=== PATIENT | male | born 1955 | race Caucasian/White ===

== ENCOUNTER 2016-07-03 17:39 | Inpatient (IN) | payer OTHER ==
[~2016-07-03] VITALS: Ht 172.7 cm; Wt 78.5 kg
[~2016-07-03 17:39] MED LIST: PLAVIX75 MG PO
[2016-07-03 18:06] LABS: BASOPHILS 0.3 % (0.0-2.0); EOSINOPHILS 1.5 % (0-7); HEMATOCRIT 43.6 % (42.0-54.0); HEMOGLOBIN 14.8 g/dL (13.5-17.5); IMMATURE GRANULOCYTES 0.2 % (0-5); LYMPHOCYTES 29.1 % (15-50); MCH 31.4 pg (26.0-34.0); MCHC 33.9 g/dL (31.0-37.0); MCV 92.4 fL (80.0-100.0); MEAN PLATELET VOLUME 9.8 fL (7.4-10.4); MONOCYTES 9.2 % (2-11); NEUTROPHILS 59.7 % (40-80); PLATELET COUNT 253 10x3/uL (130-400); RBC 4.72 10x6/uL (4.20-6.10); RDW 12.8 % (11.5-14.5); WBC 6.1 10x3/uL (4.8-10.8)
[2016-07-03 18:22] LABS: ALBUMIN 3.6 g/dL (3.4-5.0); BILIRUBIN - TOTAL 0.34 mg/dL (0.2-1.3); CALCIUM 9.2 mg/dL (8.5-10.1); CARBON DIOXIDE 29.5 mmol/L (21.0-32.0); CREATININE - SERUM 1.1 mg/dL (0.6-1.3); POTASSIUM - SERUM 3.5 mmol/L (3.5-5.1); PROTEIN - SERUM 7.7 g/dL (6.4-8.2)
[2016-07-03 18:25] LABS: APTT 26.6 SECONDS (22.8-39.4); INR 0.93 (0.85-1.17); PROTIME 12.3 SECONDS (11.6-15.0)
[2016-07-03 19:34] LABS: APPEARANCE CLEAR (CLEAR); BILIRUBIN NEGATIVE (NEGATIVE); COLOR YELLOW (YELLOW); GLUCOSE NEGATIVE (NEGATIVE); KETONE NEGATIVE (NEGATIVE); LEUKOCYTE ESTERASE NEGATIVE (NEGATIVE); NITRITE NEGATIVE (NEGATIVE); PH 6.5 (5.0-6.0); PROTEIN NEGATIVE (NEGATIVE); SPECIFIC GRAVITY 1.015 (1.005-1.020); UROBILINOGEN NORMAL (NORMAL)
--- NOTE | 2016-07-03 23:45 | NUR ---
RECEIVED PATIENT FROM THE ER. AT BEDSIDE. PATIENT DENIES NEEDS AT THIS TIME. BED IN LOWEST POSITION AND CALL LIGHT WITHIN REACH. ENCOURAGED PATIENT TO CALL IF HE HAS NEEDS.
[2016-07-03] MEDS ORDERED: ASPIRIN81 MG PO (23:53)
[2016-07-04 00:01] VITALS: BP 106/69; BMI 27.2
[2016-07-04 04:00] VITALS: BP 99/61
[2016-07-04 05:38] LABS: BASOPHILS 0.5 % (0.0-2.0); EOSINOPHILS 1.6 % (0-7); HEMATOCRIT 39.7 % (42.0-54.0); HEMOGLOBIN 13.1 g/dL (13.5-17.5); IMMATURE GRANULOCYTES 0.2 % (0-5); LYMPHOCYTES 38.6 % (15-50); MCH 30.4 pg (26.0-34.0); MCV 92.1 fL (80.0-100.0); MEAN PLATELET VOLUME 9.7 fL (7.4-10.4); MONOCYTES 12.3 % (2-11); NEUTROPHILS 46.8 % (40-80); PLATELET COUNT 224 10x3/uL (130-400); RBC 4.31 10x6/uL (4.20-6.10); RDW 12.9 % (11.5-14.5)
[2016-07-04 05:41] LABS: WBC 4.3 10x3/uL (4.8-10.8)
[2016-07-04 06:11] LABS: ALBUMIN 2.9 g/dL (3.4-5.0); ALKALINE PHOSPHATASE 136 U/L (46-116); ALT (SGPT) 20 U/L (10-68); BILIRUBIN - TOTAL 0.19 mg/dL (0.2-1.3); CALC OSMOLALITY 278 mosm/kg (275-300); CALCIUM 8.1 mg/dL (8.5-10.1); CARBON DIOXIDE 26.6 mmol/L (21.0-32.0); CHLORIDE - SERUM 107 mmol/L (98-107); GLUCOSE 110 mg/dL (74-106); MAGNESIUM - SERUM 2.2 mg/dL (1.8-2.4); PHOSPHOROUS 3.4 mg/dL (2.5-4.9); PROTEIN - SERUM 6.5 g/dL (6.4-8.2); SODIUM 140 mmol/L (136-145); UREA NITROGEN 11 mg/dL (7-18)
[2016-07-04 06:13] LABS: CREATININE - SERUM 0.8 mg/dL (0.6-1.3); POTASSIUM - SERUM 4.2 mmol/L (3.5-5.1); eGFR NON AFRICAN AMERICAN > 90 mL/min (90-120)
[2016-07-04 08:16] VITALS: BP 126/68
[2016-07-04 11:21] VITALS: BP 97/61
[2016-07-04 16:28] VITALS: BP 126/78
[2016-07-04 20:00] VITALS: BP 119/78
--- NOTE | 2016-07-04 20:27 | NUR ---
PATIENT RESTING IN BED AND DENIES NEEDS AT THIS TIME. BED IN LOWEST POSITION AND CALL LIGHT WITHIN REACH. ENCOURAGED PATIENT TO CALL IF HE HAS FURTHER NEEDS.
[2016-07-05] VITALS (11 sets, daily range): BP systolic 105–145; BP diastolic 65–91; Ht 172.7 cm; Wt 78.5 kg
[2016-07-05 05:24] LABS: BASOPHILS 0.2 % (0.0-2.0); EOSINOPHILS 1.9 % (0-7); HEMATOCRIT 39.3 % (42.0-54.0); HEMOGLOBIN 12.9 g/dL (13.5-17.5); IMMATURE GRANULOCYTES 0.2 % (0-5); LYMPHOCYTES 37.4 % (15-50); MCH 30.4 pg (26.0-34.0); MCHC 32.8 g/dL (31.0-37.0); MCV 92.7 fL (80.0-100.0); MONOCYTES 11.8 % (2-11); NEUTROPHILS 48.5 % (40-80); PLATELET COUNT 217 10x3/uL (130-400); RBC 4.24 10x6/uL (4.20-6.10); RDW 13.2 % (11.5-14.5); WBC 4.2 10x3/uL (4.8-10.8)
[2016-07-05 05:51] LABS: ALBUMIN 2.9 g/dL (3.4-5.0); ALKALINE PHOSPHATASE 141 U/L (46-116); ALT (SGPT) 18 U/L (10-68); BILIRUBIN - TOTAL 0.33 mg/dL (0.2-1.3); CALC OSMOLALITY 286 mosm/kg (275-300); CALCIUM 8.3 mg/dL (8.5-10.1); CARBON DIOXIDE 26.8 mmol/L (21.0-32.0); CHLORIDE - SERUM 111 mmol/L (98-107); CREATININE - SERUM 0.9 mg/dL (0.6-1.3); GLUCOSE 90 mg/dL (74-106); MAGNESIUM - SERUM 1.9 mg/dL (1.8-2.4); PHOSPHOROUS 2.9 mg/dL (2.5-4.9); POTASSIUM - SERUM 4.9 mmol/L (3.5-5.1); PROTEIN - SERUM 5.9 g/dL (6.4-8.2); SODIUM 145 mmol/L (136-145); UREA NITROGEN 7 mg/dL (7-18); eGFR NON AFRICAN AMERICAN > 90 mL/min (90-120)
--- NOTE | 2016-07-05 06:30 | NUR ---
PATIENT FELT VERY ANXIOUS LAST NIGHT ABOUT HAVING A PROCEDURE TODAY. AFTER SPEAKING WITH DR. PAUL LAST NIGHT THE PATIENT STATED HE "FEELS MUCH BETTER AND HIS QUESTIONS HAVE BEEN ANSWERED"
--- NOTE | 2016-07-05 07:18 | NUR ---
PATIENT AWAKE, ALERT AND ORIENTED X'S 4. NO SIGNS OF DISTRESS NOTED. PATIENT REQUESTED TO BE UNHOOKED FROM IV FOR A LITTLE WHILE. UNHOOKED PATIENT FROM THE IV.
--- NOTE | 2016-07-05 07:27 | NUR ---
PATIENT AMBULATING IN THE [place] WITH HIS . GAIT STEADY. NO SIGNS OF DISTRESS NOTED.
--- NOTE | 2016-07-05 16:18 | NUR ---
DR. PAUL HERE AT BEGINNING OF PROCEDURE TO SEE BEGINNING OF PROCEDURE.
--- NOTE | 2016-07-05 16:18 | NUR ---
20G JELCO RESITED TO LEFT FA DURING PROCEDURE BY JOHNNY SCOTT PIPE FITTER [employer]
--- NOTE | 2016-07-05 16:29 | NUR ---
1628 DR. GARRIDO GIVES PT. RESULTS.
--- NOTE | 2016-07-05 17:14 | NUR ---
PATIENT CAME BACK FROM GI LAB WITH IV TO HIS RIGHT FOREARM/WRIST. MANGLE CATCHER D/C IV WITH CATH INTACT.
--- NOTE | 2016-07-05 19:15 | NUR ---
RECIEVED SHIFT REPORT. PT IS LYING IN BED. ALERT AND ORIENTED AND ABLE TO VERBALIZE NEEDS. IV IS PATENT AND FLUIDS ARE RUNNING PER ORDER. PT DENIES ANY PAIN AT THIS TIME. PT IS AMBULATORY BUT WAS INSTRUCTED TO CALL FOR ANY ASSISTANCE NEEDED. SCD'S OFF AT THIS TIME. NO NEEDS ARE VERBALIZED AT THIS TIME. WILL CONTINUE TO MONITOR. AT BEDSIDE. SIDE RAILS ARE UP X 2. BED IS IN LOWEST POSITION. CALL LIGHT IS WITHIN REACH.
--- NOTE | 2016-07-05 20:30 | NUR ---
SHIFT ASSESSMENT COMPLETED. PT STATUS REMAINS UNCHANGED FROM PREVIOUS. WILL MONITOR. AT BEDSIDE. SIDE RAILS X 2. BED LOW. CALL LIGHT IN REACH.
[2016-07-06] VITALS: BP 146/82
[2016-07-06 04:00] VITALS: BP 128/77
[2016-07-06 05:30] LABS: ALBUMIN 2.8 g/dL (3.4-5.0); ALKALINE PHOSPHATASE 143 U/L (46-116); ALT (SGPT) 17 U/L (10-68); BILIRUBIN - TOTAL 0.44 mg/dL (0.2-1.3); CALC OSMOLALITY 276 mosm/kg (275-300); CALCIUM 8.3 mg/dL (8.5-10.1); CHLORIDE - SERUM 109 mmol/L (98-107); CREATININE - SERUM 0.9 mg/dL (0.6-1.3); GLUCOSE 71 mg/dL (74-106); PROTEIN - SERUM 6.3 g/dL (6.4-8.2); SODIUM 141 mmol/L (136-145); UREA NITROGEN 8 mg/dL (7-18); eGFR NON AFRICAN AMERICAN > 90 mL/min (90-120)
[2016-07-06 05:31] LABS: POTASSIUM - SERUM 3.6 mmol/L (3.5-5.1)
[2016-07-06 05:42] LABS: BASOPHILS 0.2 % (0.0-2.0); EOSINOPHILS 1.4 % (0-7); HEMATOCRIT 39.3 % (42.0-54.0); HEMOGLOBIN 13.2 g/dL (13.5-17.5); LYMPHOCYTES 26.4 % (15-50); MCH 30.6 pg (26.0-34.0); MCHC 33.6 g/dL (31.0-37.0); MCV 91.2 fL (80.0-100.0); MEAN PLATELET VOLUME 9.9 fL (7.4-10.4); MONOCYTES 8.7 % (2-11); NEUTROPHILS 63.3 % (40-80); PLATELET COUNT 224 10x3/uL (130-400); RBC 4.31 10x6/uL (4.20-6.10); RDW 12.7 % (11.5-14.5); WBC 5.1 10x3/uL (4.8-10.8)
--- NOTE | 2016-07-06 07:20 | NUR ---
PATIENT SITTING UP ON SIDE OF BED ALERT. NO SIGNS OF DISTRESS NOTED. GUEST AT BEDSIDE. SIDE RAILS UP X2. BED IN LOW POSITION. CALL LIGHT IN REACH.
[2016-07-06 07:38] VITALS: BP 114/78
--- NOTE | 2016-07-06 07:39 | NUR ---
UP WALKING AROUND THE UNIT, DENIES NEEDS, STATES HE HOPES TO GO HOME TODAY, NO DISTRESS NOTED, WILL CONTINUE TO MONITOR
--- NOTE | 2016-07-06 08:04 | OP ---
PATIENT NAME: CAROL RODRÍGUEZ MEDICAL RECORD: [id number] :51 LOCATION:[facility] ADMISSION DATE:07/03/16 SURGEON: JAYLON GARRIDO DO DATE OF OPERATION: 07/05/2016 REQUEST THINGS PHYSICIAN: CELIO PAUL MD INDICATION: Lower gastrointestinal bleed/hematochezia and abnormal CT findings with a suspected rectosigmoid mass. MEDICATIONS: Propofol 250 mg IV per anesthesia. FINDINGS: Informed consent was given. The patient was sedated with the above medication. Once adequate sedation was reached by slow IV push, the patient was placed on his left side. A digital rectal examination was performed and was normal The endoscope was then advanced under direct visualization through the rectum to the cecum evidenced by the appendiceal orifice and ileocecal valve. There was a polyp located at approximately 40 cm, which measured 1.2 cm in size. It was not removed due to the current workup of this rectosigmoid site. A tattoo was placed near the site to aid in finding in the near future. Scope was further withdrawn to the rectosigmoid where a questionable mass was located. Its length was approximately 5 cm (from 10 cm to 15 cm) in the rectosigmoid. It protruded in the lumen somewhat and had a single defect with blood coming out of the site and a clot was present within the defect. Biopsies were taken around that site. A tattoo was placed both proximally and distally to the mass. It is difficult to characterized by appearance alone. The scope was then retroflexed in the rectum where some internal hemorrhoids were present. Scope was withdrawn from the patient. The patient tolerated the procedure well and there were no complications. IMPRESSION: 1. Rectosigmoid mass differential to include inflammatory versus malignant. There is single defect site that appears to be communicating with an unknown structure/site outside of the colon. Biopsies were taken of this mass/site and tattoo was placed proximally and distally. 2. Single polyp measuring approximately 1.2 cm in size at approximately 40 cm from the anal verge, which was not removed on this examination. PLAN AND RECOMMENDATIONS: 1. Return to floor and monitor for further bleeding. 2. We will schedule a Gastrografin enema to further characterized this mass as well as the defect, which may be communicating as a ____ versus a defect into the abdomen. 3. Dr. Paul is aware of findings and will assist with determination of next course of action, pending findings on the Gastrografin enema. TRANSINT:[id number] Voice Confirmation ID: [id number] DOCUMENT ID: [id number] OPERATIVE REPORT [id number] CAROL RODRÍGUEZ NATHAN A DO at 0804 CC: [id number] DICTATION DATE: 07/05/16 162 BRAID MAKER: 07/05/16 2325 ADM IN [id number] [place] [address]
[2016-07-06 11:54] VITALS: BP 116/65
[2016-07-06 15:49] VITALS: BP 120/70
[2016-07-06] MEDS ORDERED: NICODERM C1 PATCH .3 TRANSDERM (16:29)
--- NOTE | 2016-07-06 16:29 | NUR ---
CM REASSESSMENT NOTE: PATIENT IS DISCHARGING HOME TODAY - DENIED HOME HEALTH OR ANY OTHER NEEDS FOR DISCHARGE- IS DRIVING HIM HOME.
--- NOTE | 2016-07-06 17:28 | NUR ---
DISCHARGE PAPERS AND INSTRUCTIONS GIVEN, QUESTIONS ANSWERED, IV REMOVED TIP INTACT, DISCHARGED PER WALKING WITH BELONGINGS
--- NOTE | 2016-08-04 09:43 | PN ---
PATIENT:CAROL RODRÍGUEZ MEDICAL RECORD: [id number] LOCATION:[facility] ADMISSION DATE: 07/03/16 PROGRESS NOTE DATE OF SERVICE: 07/04/2016 The patient is undergoing a slow bowel prep. I have reviewed his CT images again. I went by and talked to him and his . His symptoms are unchanged from yesterday. I am doing a slow bowel prep, so that hopefully we can not precipitate a bowel obstruction as this is a nearly obstructing malignancy. We do not yet a have tissue diagnosis. I will order a CEA level. I have encouraged him to drink the rest of his GoLYTELY. I am going to consult Dr. Magallanes and her group and see if they can perform a colonoscopy on the patient tomorrow. As I explained to the patient again today, if this is a rectal cancer, then preoperative chemotherapy and radiation would likely be indicated. If this is a colon cancer, then a primary resection with anastomosis would be indicated. REVIEW OF SYSTEMS: No nausea or vomiting. No fever or chills. No chest pain or shortness of breath, Review of systems is negative other than as is described above. This is progress note addendum. For the typed portion of the progress note, which included the past medical and surgical history, allergies, current medications, please see the chart. PHYSICAL EXAMINATION: GENERAL: The patient does not appear acutely ill. He does not appear chronically ill. VITAL SIGNS: Reviewed. HEAD: External ears appear normal. EYES: Extraocular movements are intact. NECK: Trachea is midline. CHEST: No intercostal retractions. PULMONARY: Nonlabored, no stridor. ABDOMEN: Nontender. EXTREMITIES: No peripheral cyanosis. INTEGUMENT: No rash, no ulcerations. PSYCHIATRIC: Normal affect. NEUROLOGIC: Nonfocal, no lethargy. The patient answers questions appropriately, moves all extremities well. BACK: No thoracic kyphosis. LYMPHATIC: No lymphangitic streaking of the exposed extremities. IMPRESSION Hematochezia, likely due to a colon or rectal malignancy. PLAN: Continue bowel prep. N.p.o. after midnight. Hopefully, a colonoscopy tomorrow. I consult his primary care team for medical management. TRANSINT:[id number] Voice Confirmation ID: [id number] DOCUMENT ID: [id number] PROGRESS NOTE [id number] CAROL RODRÍGUEZ ROBERT MD at 0943 CC: [id number] DICTATION DATE: 07/04/162152 VEST FINISHER: 07/05/16 0125 DIS IN 07/06/16 [place] [address] [id number] [place] [address]
--- NOTE | 2016-08-04 09:43 | PN ---
PATIENT:CAROL RODRÍGUEZ MEDICAL RECORD: [id number] LOCATION:[facility] ADMISSION DATE: 07/03/16 PROGRESS NOTE DATE OF SERVICE: 07/05/2016 Progress Note Addendum CHIEF COMPLAINT: None. I saw the patient in the GI lab. I was present when Dr. Dial performed a flexible proctoscopy and sigmoidoscopy. The lesion did not appear definitely to represent a malignancy. There was a clot within what appeared to be either a fistula or diverticulum. This was 10 cm, so the patient should not have rectal diverticulum. This may be a fistula. We are going to obtain a Gastrografin enema. As we did not want to exclude the patient from undergoing a Gastrografin enema, we did not take any biopsies today. I have discussed the case with Mrs. Rodríguez as well. Nothing aggravates. Nothing alleviates. The patient is unable to provide me with any review of systems today as he is sedated. This is a progress note addendum. For the typed portion of the progress note including the past medical and surgical history, allergies, social history as well as current medications, please see the chart. REVIEW OF SYSTEMS: Unobtainable from the patient due to sedation. PHYSICAL EXAMINATION: GENERAL: The patient does not appear acutely ill. He does appear chronically ill. VITAL SIGNS: Reviewed. HEAD: External ears appear normal. EYES: Extraocular movements are intact. NECK: Trachea is midline. CHEST: No intercostal retractions. PULMONARY: Nonlabored. ABDOMEN: Unable to assess due to sedation. EXTREMITIES: No peripheral cyanosis. INTEGUMENT: No rash. PSYCHIATRIC: Unable to assess due to sedation. NEUROLOGIC: Unable to assess due to sedation. BACK: Mild thoracic kyphosis is present. LYMPHATIC: No lymphangitic streaking of the exposed extremities. IMPRESSION: There is a rectal mass at 10 cm, perhaps related to malignancy or perhaps related to a fistula. PLAN: Gastrografin enema tomorrow. Continue clear liquids. N.p.o. after midnight. TRANSINT:[id number] Voice Confirmation ID: [id number] DOCUMENT ID: [id number] PROGRESS NOTE [id number] CAROL RODRÍGUEZ ROBERT MD at 0943 CC: [id number] DICTATION DATE: 07/05/16 1606 FINANCIAL SALES ADVISOR: 07/05/16 1709 DIS IN 07/06/16 [facility] [address] [place] [address]
--- NOTE | 2016-08-04 09:43 | DS ---
PATIENT:CAROL RODRÍGUEZ :51 MEDICAL RECORD: [id number] DISCHARGE SUMMARY ADMISSION DATE: 07/03/16 DISCHARGE DATE: 07/06/16 PREOPERATIVE DIAGNOSES: 1. Hematochezia. 2. Rectal mass versus fistula versus inflammatory process. Biopsies pending. 3. Acute coronary syndrome. 4. Chronic obstructive pulmonary disease. 5. Nicotine dependence. PROCEDURES: Colonoscopy with submucosal injection (tattooing) as well as biopsies by Dr. Dial. HOSPITAL COURSE: The patient was admitted through the Emergency Room. He was seen by Dr. Dial in consultation. The patient underwent a CT scan. I personally reviewed the CT images. I personally reviewed the CT report. It was consistent with possible rectosigmoid mass. When Dr. Dial performed the proctoscopy, this mass was 10 cm and was ulcerated or there was a diverticulum present. It did have a clot within it. Biopsies were taken. He also tattooed proximal and distal to the mass. The patient can be dismissed home. I will see him in the office in 2-3 weeks. Pending results of the biopsies and the CEA level. TRANSINT:[id number] Voice Confirmation ID: [id number] DOCUMENT ID: [id number] CELIO PAUL MD at 0943 CC: ARIANNA LENZ MD, TOI SY MD and JAYLON DIAL DO [id number] DICTATION DATE: 07/06/16 1618 ASSISTANCE COORDINATOR: 07/07/16 0326 DIS IN 07/06/16 [id number] [place] [address]
--- NOTE | 2016-08-04 09:43 | HP ---
PATIENT: CAROL RODRÍGUEZ MEDICAL RECORD: [id number] ACCOUNT: [id number] LOCATION:D[facility] : 51 ADMISSION DATE: 07/03/16 HISTORY AND PHYSICAL EXAMINATION History and physical for yesterday, 07/03/2016. CHIEF COMPLAINT: Bleeding. HISTORY OF PRESENT ILLNESS: The patient was admitted through the Emergency Room. He underwent a CT scan. It revealed what appears to be a mass, either in the upper rectum or the lower sigmoid colon. Anyhow, it is likely at the rectosigmoid junction. Depending on whether if it is a rectal mass or a colon mass, will determine what type of treatment he is going to need to undergo. If it is a rectal mass, then preoperative chemotherapy and radiation would be indicated. If it is colonic mass, then a primary resection would be indicated. This is a history and physical addendum. For the typed portion of the history and physical, please see the chart. Nothing aggravates. Nothing alleviates. Symptoms are mild. He is having no pain. REVIEW OF SYSTEMS: No nausea, no vomiting, no fever, no chills, no abdominal pain. For the typed portion of the progress note including past medical and surgical history, allergies, current medications, please see the chart. PHYSICAL EXAMINATION: GENERAL: The patient does not appear acutely ill. He does not appear chronically ill. VITAL SIGNS: Reviewed. HEAD: External ears appear normal. EYES: Extraocular movements are intact. NECK: Trachea is midline. CHEST: No intercostal retractions. PULMONARY: Nonlabored, no stridor. ABDOMEN: Nontender. EXTREMITIES: No peripheral cyanosis. INTEGUMENT: No rash, no ulcerations. PSYCHIATRIC: Normal affect. NEUROLOGIC: Nonfocal, no lethargy. The patient answers questions appropriately, moves all extremities well. BACK: No thoracic kyphosis. LYMPHATICS: No lymphangitic streaking of the exposed extremities. X-ray studies have personally reviewed the x-ray images. I have personally reviewed the x-ray report. IMPRESSION: Mass, if it is within the sigmoid colon or rectum, likely malignancy. PLAN: Bowel prep. Colonoscopy. I will consult Dr. Magallanes and then either operative intervention or neoadjuvant chemotherapy and radiation, depending on the location of the mass. HISTORY AND PHYSICAL [id number] CAROL RODRÍGUEZ TRANSINT:[id number] Voice Confirmation ID: [id number] DOCUMENT ID: [id number] CELIO PAUL MD at 0943 CC: [id number] DICTATION DATE: 07/04/162058 SPECIAL EQUIPMENT TECHNICIAN: 07/04/162156 DIS IN 07/06/16 [place] [id number] [place] [id number]
== END 2016-07-06 17:30 | disposition home or self-care (01) | DRG 394 ==
LOC: D.ER 17:39 → D.MS 22:30
PROVIDERS: Emergency Medicine; Internal Medicine Gastroenterology; Physician Assistant Medical; ADMIT Surgery
PROC: 0DBN8ZX Excision of Sigmoid Colon, Via Natural or Artificial Opening Endoscopic, Diagnostic (ICD-10-PCS; 2016-07-05)
PROC: 0DBP8ZX Excision of Rectum, Via Natural or Artificial Opening Endoscopic, Diagnostic (ICD-10-PCS; principal; 2016-07-05 12:30)
DX: K63.9 Disease of intestine, unspecified (principal); K92.1 Melena; F17.203 Nicotine dependence unspecified, with withdrawal; I24.9 Acute ischemic heart disease, unspecified; J44.9 Chronic obstructive pulmonary disease, unspecified; K64.8 Other hemorrhoids; D64.9 Anemia, unspecified

== ENCOUNTER 2016-08-25 09:37 | Day surgery (SDC) | payer OTHER ==
[~2016-08-25] VITALS: Ht 172.7 cm; Wt 78.6 kg
--- NOTE | ~2016-08-25 | OP ---
PATIENT NAME: CAROL RODRÍGUEZ MEDICAL RECORD: [id number] :51 LOCATION:[place] ADMISSION DATE: SURGEON: JAYLON GARRIDO DO DATE OF OPERATION: 08/25/2016 PROCEDURES: Flexible sigmoidoscopy with endoscopic mucosal resection and biopsies. SCOPE: BaseTrace video pediatric colonoscope. MEDICATIONS: Propofol 250 mg IV per anesthesia. ESTIMATED BLOOD LOSS: Minimal. COMPLICATIONS: None. FINDINGS: Informed consent was given. The patient was made comfortable with the above medications. After reaching an adequate level of sedation by slow IV push, the patient was placed on his left side. A digital rectal examination was performed and was normal. The endoscope was then advanced under direct visualization through ____ approximately 40 cm where the previously indentified polyp was again located near a tattooed site. This polyp measured approximately 1.5 cm in size. It was removed using EMR technique with a saline injection underneath the base of the polyp followed by hot snare polypectomy. The polyp was removed in 1 piece and completely retrieved. The scope was then withdrawn to give attention to the previously indentified rectosigmoid mass with fistulized site. A tattoo was identified above and below the site. The previous fistula versus diverticuli was again identified, but appeared less open and possibly completely close. With previously appeared to be more mass-like and inflamed, appeared as if it were normal colonic mucosa. 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 There were also five diminutive and benign-appearing sessile polyps, which were removed with cold forceps. All of the specimens were submitted to pathology. The scope was then withdrawn back into the rectum and retroflexed, with a normal appearance. The scope was withdrawn from the patient. The patient tolerated the procedure well and there were no complications. IMPRESSION: 1. Previous identified polyp measuring approximately 1.5 cm located at 40 cm from the anal verge, removed using EMR technique. 2. Five diminutive sessile polyps in the rectosigmoid junction, all removed with cold forceps. 3. Previously identified inflammatory mass versus large polyp located between tattooed site and with a diverticular versus a fistulized site, appearing healed at this time. Biopsies were taken. PLAN AND RECOMMENDATIONS: 1. Discharge home when recovery parameters are met. 2. Continue current diet. 3. Continue current medications. 4. Follow up biopsy specimen results. 5. Further recommendations will be dependent on results of biopsy specimens. TRANSINT:[id number] Voice Confirmation ID: [id number] DOCUMENT ID: [id number] OPERATIVE REPORT [id number] CAROL RODRÍGUEZ NATHAN A DO CC: [id number] DICTATION DATE: 08/25/16 1407 RN CLINICAL APPEALS: 08/25/16 1438 [facility] 08/25/16 [place] [id number] [place] [id number]
[~2016-08-25 09:37] MED LIST changes: +ASPIRIN81 MG PO; +NICODERM C1 PATCH .3 TRANSDERM
[2016-08-25 10:25] LABS: BASOPHILS 0.2 % (0-2); EOSINOPHILS 1.4 % (0-7); HEMATOCRIT 43.2 % (42.0-54.0); HEMOGLOBIN 14.6 g/dL (13.5-17.5); IMMATURE GRANULOCYTES 0.2 % (0-5); LYMPHOCYTES 31.7 % (15-50); MCH 30.9 pg (26.0-34.0); MCHC 33.8 g/dL (31.0-37.0); MCV 91.5 fL (80.0-100.0); MEAN PLATELET VOLUME 9.7 fL (7.4-10.4); MONOCYTES 11.4 % (2-11); NEUTROPHILS 55.1 % (40-80); PLATELET COUNT 194 10x3/uL (130-400); RBC 4.72 10x6/uL (4.20-6.10); RDW 12.9 % (11.5-14.5); WBC 4.4 10x3/uL (4.8-10.8)
[2016-08-25 10:32] LABS: CALC OSMOLALITY 277 mosm/kg (275-300); CARBON DIOXIDE 26.3 mmol/L (21.0-32.0); CHLORIDE - SERUM 107 mmol/L (98-107); CREATININE - SERUM 0.9 mg/dL (0.6-1.3); GLUCOSE 89 mg/dL (74-106); POTASSIUM - SERUM 3.9 mmol/L (3.5-5.1); SODIUM 140 mmol/L (136-145); UREA NITROGEN 13 mg/dL (7-18); eGFR NON AFRICAN AMERICAN > 90 mL/min (90-120)
[2016-08-25 10:36] VITALS: BP 113/71; Ht 172.7 cm; Wt 78.6 kg
--- NOTE | 2016-08-25 14:27 | NUR ---
1420-RECD FROM GI LAB. DROWSY. ENCOURAGED TO DEEP BREATHE AND COUGH. RESP WITH EASE. DR GARRIDO HERE TO REPORT TO FAMILY.
--- NOTE | 2016-08-25 14:56 | NUR ---
1450-NO NAUSEA. IV D/C. UP TO BATHROOM AND VOIDED. 1500-DISCHARGE INSTRUCTIONS REVIEWED. 1505-D/C VIA WHEELCHAIR.
== END 2016-08-25 15:05 | disposition home or self-care (01) ==
LOC: D.OPS 09:37
PROVIDERS: Anesthesiology
DX: D12.4 Benign neoplasm of descending colon (principal); K63.5 Polyp of colon

== ENCOUNTER 2016-10-05 21:05 | Observation (INO) | payer OTHER ==
[~2016-10-05] VITALS: Ht 172.7 cm; Wt 80.7 kg
--- NOTE | ~2016-10-05 | HEMODYNAMI ---
PATIENT:CAROL RODRÍGUEZ MEDICAL RECORD: [id number] : 51 LOCATION:[facility] D.2122 ADMISSION DATE: 10/05/16 Generatedon:10/06/201616:27 Patient name: CAROL RODRÍGUEZ Patient #: [id number] SSN: : Date of study: 10/06/2016 Page: Of Hemodynamic Procedure Report Patient Data Patient Demographics Procedure consent was obtained First Name: CAROL Gender: Male Last Name: ANNE : 1955 [facility] Initial: E Age: 61 year(s) Patient #: [id number] Race: Additional ID: [id number] Contact details [address]: [address] [place] [address] State: [place] City: [place] Zip code: [address] Past Medical History Allergies Allergen Reaction Date Comments Reported Penicillins 12/25/2014 Admission Admission Data Admission Date: 10/05/2016 Admission Time: 23:42 Room #: D.2122 Procedure Procedure Types Cath Procedure Diagnostic Procedure C [facility] w/Coronaries FFR/IVUS Intra-Coronary IVUS Initial PCI Procedure Coronary Stent Initial Miscellaneous Procedures Moderate Sedation up to 30 minutes Procedure Description Procedure Date Procedure Date: 10/06/2016 Procedure Start Time: 16:11 Procedure End Time: 16:26 Procedure Staff Name Function Robby Navarro MD Performing Physician Lashawn Arenas RN Nurse Brenden Figueroa RT Monitor Lizandro Lundy RT Scrub Jerry Watts RN Senior Research Associate Procedure Data Cath Procedure Fluoroscopy Diagnostic fluoroscopy Total fluoroscopy Time: 3.6 time: 3.6 min min Diagnostic fluoroscopy Total fluoroscopy dose: 689 dose: 689 mGy mGy Contrast Material Contrast Material Type Amount (ml) Isovue 300 102 Entry Location Entry Primary Successful Side Size Upsize Upsize Entry Closure Morgan ccessful Closure Location (Fr) 1 (Fr) 2 (Fr) Remarks Device Remarks Radial Right 6 Fr Mechanical artery Short Compression Diagnostic catheters Device Type Used For End Catheter Placement Diagnostic Terumo 5Fr LV Angiography Saint Rose 110cm catheter Procedure Complications No complications Procedure Medications Medication Administration Route Dosage Oxygen NC 2 l/min Heparin Flush Bag added to field 2 bags (1000units/500ml NS) Lidocaine 2% added to field 20 Radial Cocktail added to field 1 syringe (Verapomil 2mg/Nitro 400mcg/Heparin 1500units) Versed I.V. 1 mg Fentanyl I.V. 50 mcg Radial Cocktail I.A. 1 syringe (Verapomil 2mg/Nitro 400mcg/Heparin 1500units) Versed I.V. 1 mg Fentanyl I.V. 50 mcg Heparin Bolus I.V. 4000 units Integrilin (Bolus I.V. 7.3 ml 2mg/ml) Plavix P.O. 600 mg Hemodynamics Rest Heart Rate: 72 (bpm) Snapshots Pre Cath Intra NCS Post Cath Vital Signs Time Heart Resp SPO2 NIBP (mmHg) Rhythm Pain Sedation Rate (ipm) (%) Status Level (bpm) 15:55:44 72 14 98 115/78(95) NSR 0 (11) 10(A) , No pain 15:59:46 77 16 97 104/80(95) NSR 0 (11) 10(A) , No pain 16:03:46 72 18 97 98/78(85) NSR 0 (11) 10(A) , No pain 16:07:43 77 17 96 109/77(103) NSR 0 (11) 10(A) , No pain 16:11:49 77 17 96 92/65(81) NSR 0 (11) 10(A) , No pain 16:15:49 84 15 96 93/60(89) NSR 0 (11) 9(A) , No pain 16:19:46 82 16 95 110/71(82) NSR 0 (11) 9(A) , No pain 16:23:44 75 16 95 107/71(83) NSR 0 (11) 9(A) , No pain 16:27:03 74 17 95 104/64(77) NSR 0 (11) 10(A) , No pain Medications Time Medication Route Dose Verified Delivered Reason Note s Effectiveness by by 15:58:05 Oxygen NC 2 l/min Robby Rosalesca Per physician Melanie Arenas RN 15:58:12 Heparin Flush added 2 bags Robby Bustamante used for Bag to Melanie Navarro MD procedure (1000units/500ml field NS) 15:58:19 Lidocaine 2% added 20ml Robby Robby used for to vial Melanie Navarro MD procedure field 15:58:27 Radial Cocktail added 1 Robby Bustamante used for (Verapomil to syringe Melanie Navarro MD procedure 2mg/Nitro field 400mcg/Heparin 1500units) 16:09:04 Versed I.V. 1 mg Robby Lashawn for sedation Melanie Arenas RN 16:09:09 Fentanyl I.V. 50 mcg Robby Lashawn for sedation Melanie Arenas RN 16:11:39 Versed I.V. 1 mg Robby Lashawn for sedation Melanie Arenas RN 16:11:54 Fentanyl I.V. 50 mcg Robby Lashawn for sedation Melanie Arenas RN 16:12:31 Radial Cocktail I.A. 1 Robby Orbby for (Verapomil syringe Melanie Navarro MD vasodilation 2mg/Nitro 400mcg/Heparin 1500units) 16:15:55 Heparin Bolus I.V. 4000 Robby Lashawn for dose units Melanie Arenas RN anticoagulation verified with dr navarro 16:17:19 Integrilin I.V. 7.3 ml Robby Lashawn for wast ed (Bolus 2mg/ml) Melanie Arenas RN antiplatelet 2.7ml therapy 16:27:12 Plavix P.O. 600 mg Robby Lashawn for Melanie Arenas RN antiplatelet therapy Procedure Log Time Note 15:39:15 Jerry Watts RN sent for patient. Start room use. 15:39:16 Time tracking: Regular hours 15:39:19 Plan of Care:Hemodynamics will remain stable., Cardiac rhythm will remain stable., Comfort level will be maintained., Respiratory function will remain adequate., Patient/ family verbilizes understanding of procedure., Procedure tolerated without complication., Recovers from procedure without complications.. 15:50:36 Patient received from PCU to CCL 2 Alert and oriented. Tansferred to table in Supine position. 15:50:37 Correct patient and procedure confirmed by team. 15:50:37 Warm blankets applied, and noemi hugger turned on for patient comfort. 15:50:39 ECG and BP/O2 sat monitors applied to patient. 15:50:39 Signed procedure consent form obtained from patient. 15:54:49 Vital chart was started 15:55:18 Baseline sample Acquired. 15:55:22 Rhythm: sinus rhythm 15:55:22 Full Disclosure recording started 15:55:26 H&P Date Dictated: 10/06/2016 Within 30 days and on chart.. 15:55:27 Pre-procedure instructions explained to patient. 15:55:28 Pre-op teaching completed and patient verbalized understanding. 15:55:29 Family in waiting room. 15:55:32 Patient NPO since Midnight. 15:55:34 Is the patient allergic to Iodine/contrast media? No. 15:55:39 Is patient on blood thinner?No 15:55:41 Patient diabetic? No. 15:55:43 Previous problem with sedation/anesthesia? No ? 15:55:44 Snore? Yes 15:55:45 Sleep apnea? No 15:55:46 Deviated septum? No 15:55:51 Opens mouth fully? Yes 15:55:52 Sticks out tongue? Yes 15:55:54 Airway obstruction? No ? 15:55:57 Dentures? Yes IN 15:56:00 Pre procedure: right dorsailis pedis pulse 1+ Palpable, but thready & weak; easily obliterated 15:56:02 Modified Kolton's test Ulnar < 7 seconds 15:56:03 Patient pain scale 0/10 ?. 15:56:06 IV patent on arrival in left forearm with 0.9% NaCl at KVO. 15:56:08 Lab results completed and on chart. 15:56:12 Right Radial & Right Groin area was prepped with chlora-prep and draped in sterile fashion 15:56:13 Alarms reviewed by R. N. 15:56:14 Sharps counted by scrub and verified by R.N. 15:58:05 Oxygen 2 l/min NC was administered by Lashawn Arenas RN; Per physician; 15:58:12 Heparin Flush Bag (1000units/500ml NS) 2 bags added to field was administered by Robby Navarro MD; used for procedure; 15:58:19 Lidocaine 2% 20ml vial added to field was administered by Robby Navarro MD; used for procedure; 15:58:27 Radial Cocktail (Verapomil 2mg/Nitro 400mcg/Heparin 1500units) 1 syringe added to field was administered by Robby Navarro MD; used for procedure; 16:04:58 Use device set Radial Dx 16:04:59 Acist Syringe opened to sterile field. 16:05:00 Medline Cath Pack opened to sterile field. 16:05:00 Bag Decanter opened to sterile field. 16:05:02 Terumo 6Fr Slender Glidesheath opened to sterile field. 16:05:02 St Baldomero 260cm J .035 wire opened to sterile field. 16:05:03 Acist Hand Control opened to sterile field. 16:05:03 Acist Manifold opened to sterile field. 16:05:03 Tegaderm 4 x 4 opened to sterile field. 16:05:04 MBrace Wrist Support opened to sterile field. 16:08:52 --------ALL STOP TIME OUT------ 16::52 Final Timeout: patient, procedure, and site verified with staff and physician. All members of the team are in agreement. 16:08:54 Right Radial & Right Groin site verified by team. 16:08:57 Physical assessment completed. ASA score P 2 - A patient with mild systemic disease as per Robby Navarro MD. 16:09:00 Sedation plan: IV Moderate Sedation Versed, Fentanyl 16::04 Versed 1 mg I.V. was administered by Lashawn Arenas RN; for sedation; 16:09:09 Fentanyl 50 mcg I.V. was administered by Lashawn Arenas RN; for sedation; 16:11:03 Procedure started. 16:11:12 Local anesthetic to right radial artery with Lidocaine 2% by Robby Navarro MD.INITIAL ACCESS ONLY 16:11:21 A 6 Fr Short sheath was inserted into the Right Radial artery 16:11:39 Versed 1 mg I.V. was administered by Lashawn Arenas RN; for sedation; 16::54 Fentanyl 50 mcg I.V. was administered by Lashawn Arenas RN; for sedation; 16:12:07 Zero performed for pressure channel P1 16:12:24 A Diagnostic Terumo 5Fr Saint Rose 110cm catheter was advanced over the wire and used for LV Angiography. 16:12:31 Radial Cocktail (Verapomil 2mg/Nitro 400mcg/Heparin 1500units) 1 syringe I.A. was administered by Robby Navarro MD; for vasodilation; 16:13:18 LV angiography performed. 16:13:23 EF : 55 % 16:13:28 LCA angiography performed. 16:13:54 RCA angiography performed. 16:15:03 Catheter removed. 16:15:55 Heparin Bolus 4000 units I.V. was administered by Lashawn Arenas RN; for anticoagulation; dose verified with dr navarro 16:16:57 6 Fr XBLAD 3.5 guide catheter was inserted over the wire 16:17:19 Integrilin (Bolus 2mg/ml) 7.3 ml I.V. was administered by Lashawn Arenas RN; for antiplatelet therapy; wasted 2.7ml 16:17:21 ACC PCI Site: pLAD has 80% stenosis. 16:17:42 WHISPER wire advanced. 16:17:46 FFR/IVUS 16:17:46 IVUS catheter advanced over wire. 16:17:53 IVUS pass to LAD lesion performed. 16:18:39 Procedure type changed to Cath procedure, Diagnostic procedure, LHC, LHC w/Coronaries, FFR/IVUS, Intra-Coronary IVUS Initial, PCI procedure, Coronary Stent Initial, Miscellaneous Procedures, Moderate Sedation up to 30 minutes 16:21:51 IVUS catheter removed over wire. 16::33 Inflation Number: 1 A Medtronic Resolute 3.0 X 38 stent was prepped and advanced across the Prox LAD. The stent was deployed at 17 ERVIN for 0:13 (min:sec). 16:22:38 Stent catheter was removed intact over wire. 16:22:40 Wire removed. 16:22:41 Guide catheter removed. 16:25:31 Sheath removed intact; hemostasis achieved with Mechanical Compression to the Right Radial artery. 16::33 Procedure ended.(Physican Out) ::41 Fluoroscopy time 03.60 minutes. 16:25:44 Fluoroscopy dose: 689 mGy 16::44 Flurop Dose total: 689 16:25:51 Contrast amount:Isovue 300 102ml. 16:25:52 Sharps counted by scrub and verified by R.N. 16:25:54 TR band inflated with 10cc of air. 16:26:01 Post right radial artery:stable 16:26:02 Post Procedure Pulses reassessed and unchanged 16:26:04 Post procedure rhythm: sinus rhythm 16:26:06 Post procedure instruction explained to patient.Patient verbalizes understanding. 16:26:07 Procedure and supply charges have been captured, reviewed, submitted and are correct. 16:26:30 Procedure Complication : No complications 16:26:31 Vital chart was stopped 16:26:32 See physician's report for complete and final results. 16::38 Report given to PCU. 16::41 Patient transfered to PCU with Bed. 16::43 Procedure ended. 16::43 Full Disclosure recording stopped 16::48 End room use (Document Last) 16:27:12 Plavix 600 mg P.O. was administered by Lashawn Arenas RN; for antiplatelet therapy; 16:27:35 ACC-PCI Only Patient was given prescriptions, or instructed by Lashawn Arenas RN to start/continue the following medications upon discharge: Plavix Intervention Summary Intervention Notes Time ActionType Lesion and Equipment Action# Pressure Duration Attributes Used 16:22:33 Place stent Prox LAD Medtronic 1 17 00:13 Resolute 3.0 X 38 stent Device Usage Item Name Manufacture Quantity Catalog Hospital Part Current Minimal Lot# / Number Charge Number Stock Stock Serial# Code Acist Acist 1 69933 612748 104601 632288 20 Syringe Medical Systems Inc Medline Cardinal 1 [id number] 725514 80250 607510 5 Cath Pack Health Bag Microtek 1 2001S 884278 69318 903996 5 Duxter. Terumo 6Fr Terumo 1 [id number] 432421 850070 767177 [address] Baldomero 1 472600 274269 638928 587532 30 260cm J .035 wire Acist Hand Acist 1 87188 867301 181071 719130 5 Control Medical Systems Inc Acist Acist 1 72352 260849 495363 893300 5 Manifold Medical Systems Inc Tegaderm 4 3M 1 1626W 842346 530110 033582 5 x 4 MBrace Advanced 1 140-0250-00 468490 82867 630131 5 Wrist Vascular Support Dynamics Diagnostic Terumo 1 83-9200 826559 951512 543883 5 Terumo 5Fr Saint Rose 110cm catheter Medtronic Medtronic 1 [id number] 967303 836866 0 [id number] Resolute 3.0 X 38 stent Signature Audit [place] Stage Time Signature Unsigned Intra-Procedure 10/06/2016 Brenden Figueroa 4:27:49 PM RT(R) Signatures Monitor : Brenden Figueroa RT Signature : Date : Time : [place] [id number] [facility] [place] [address]
[2016-10-05 21:39] LABS: BASOPHILS 0.4 % (0-2); HEMATOCRIT 39.1 % (42.0-54.0); HEMOGLOBIN 13.2 g/dL (13.5-17.5); IMMATURE GRANULOCYTES 0.4 % (0-5); LYMPHOCYTES 34.3 % (15-50); MCH 31.1 pg (26.0-34.0); MCHC 33.8 g/dL (31.0-37.0); MEAN PLATELET VOLUME 9.3 fL (7.4-10.4); MONOCYTES 16.5 % (2-11); NEUTROPHILS 43.4 % (40-80); RBC 4.25 10x6/uL (4.20-6.10); RDW 12.8 % (11.5-14.5); WBC 4.6 10x3/uL (4.8-10.8)
[2016-10-05 21:43] LABS: PLATELET COUNT 236 10x3/uL (130-400)
[2016-10-05 21:57] LABS: ALBUMIN 3.2 g/dL (3.4-5.0); ALKALINE PHOSPHATASE 155 U/L (46-116); ALT (SGPT) 21 U/L (10-68); BILIRUBIN - TOTAL 0.25 mg/dL (0.2-1.3); CALC OSMOLALITY 282 mosm/kg (275-300); CALCIUM 8.7 mg/dL (8.5-10.1); CARBON DIOXIDE 25.8 mmol/L (21.0-32.0); CHLORIDE - SERUM 107 mmol/L (98-107); CREATININE - SERUM 1.1 mg/dL (0.6-1.3); GLUCOSE 123 mg/dL (74-106); POTASSIUM - SERUM 3.8 mmol/L (3.5-5.1); PROTEIN - SERUM 7.2 g/dL (6.4-8.2); SODIUM 141 mmol/L (136-145); UREA NITROGEN 15 mg/dL (7-18); eGFR NON AFRICAN AMERICAN 72 mL/min (90-120)
[2016-10-05 22:08] LABS: CKMB 0.7 U/L (0.0-3.6); CREATINE KINASE 130 UL (21-232)
[2016-10-05 22:09] LABS: TROPONIN-I < 0.017 ng/mL (0.000-0.060)
[2016-10-05 23:58] VITALS: BP 114/62; Ht 172.7 cm; Wt 80.7 kg
[2016-10-06 04:00] VITALS: BP 110/68
--- NOTE | 2016-10-06 04:53 | NUR ---
PT AWAKE AND ALERT/SAYING HE HAS PRESSURE SUBSTERNAL. RATES PAIN 10/10. MEDICATED WITH MORPHINE 4MG + ZOFRAN 4MG SIVP VIA PIV TO RFA. MONITOR RESPONSE AND CPOC. PT IS NPO UNTIL SEEN BY GUEST ROOM INSPECTOR.
--- NOTE | 2016-10-06 07:14 | NUR ---
AM ROUNDS- PT IN BED, DENIES ANY NEEDS NEEDS AT THIS TIME. BED LOW AND WHEELS LOCKED, BEDSIDE RAILS X1, FAMILY AT BEDSIDE, CALL LIGHT IN REACH, NAD NOTED, WILL CONTINUE TO MONITOR.
--- NOTE | 2016-10-06 07:58 | NUR ---
PAGED SHANNON PHILLIPS, WAITING ON HER TO CALL BACK.
[2016-10-06 08:00] VITALS: BP 101/63
--- NOTE | 2016-10-06 09:51 | NUR ---
CONSENTS SIGNED FOR HEART CATH AND PLACED ON CHART. 4MG OF MORPHINE GIVEN FOR PAIN LEVEL OF 8/10. PT IN BED, DENIES ANY OTHER NEEDS AT THIS TIME. CALL LIGHT IN REACH, FAMILY AT BEDSIDE, NAD NOTED, WILL CONTINUE TO MONITOR.
[2016-10-06 10:12] LABS: ANION GAP 12.6 mmol/L (8-16); CALCIUM 9.1 mg/dL (8.5-10.1); CARBON DIOXIDE 28.8 mmol/L (21.0-32.0); CREATININE - SERUM 1.1 mg/dL (0.6-1.3)
[2016-10-06 10:13] LABS: POTASSIUM - SERUM 4.4 mmol/L (3.5-5.1)
[2016-10-06 10:38] LABS: BASOPHILS 0.4 % (0-2); EOSINOPHILS 3.5 % (0-7); HEMOGLOBIN 13.1 g/dL (13.5-17.5); IMMATURE GRANULOCYTES 0.2 % (0-5); LYMPHOCYTES 24.3 % (15-50); MCHC 33.6 g/dL (31.0-37.0); MCV 92.2 fL (80.0-100.0); MEAN PLATELET VOLUME 9.7 fL (7.4-10.4); MONOCYTES 12.8 % (2-11); NEUTROPHILS 58.8 % (40-80); PLATELET COUNT 244 10x3/uL (130-400); RBC 4.23 10x6/uL (4.20-6.10); RDW 12.9 % (11.5-14.5); WBC 5.4 10x3/uL (4.8-10.8)
[2016-10-06 12:00] VITALS: BP 102/60
--- NOTE | 2016-10-06 14:15 | NUR ---
4MG OF MORPHINE GIVEN FOR PAIN LEVEL OF 8/10. PT DENIES ANY OTHER NEEDS AT THIS TIME. RESP THERAPY AT BESIDE TO DO UPDRAFT. FAMILY AT BEDSIDE, NAD NOTED, WILL CONTINUE TO MONITOR.
--- NOTE | 2016-10-06 15:50 | NUR ---
PT TRANSFERED TO AGED OR DISABLED CARER, VIA BED, NAD NOTED.
[2016-10-06 16:00] VITALS: BP 97/62
--- NOTE | 2016-10-06 16:45 | NUR ---
RECEIVED PT BACK TO ROOM 2121, TR BAND TO RT WRIST, NO BLEEDING OR SIGNS OF HEMATOMA NOTED. VITAL SIGNS STABLE. PT DENIES ANY NEEDS AT THIS TIME. CALL LIGHT IN REACH, FAMILY AT BEDSIDE. WILL CONTINUE TO MONITOR.
[2016-10-06] MEDS ORDERED: PLAVIX75 MG PO (17:54)
--- NOTE | 2016-10-06 18:24 | NUR ---
TRIED REMOVING 5CC OF AIR OUT OF TR BAND. SITE STARTED BLEEDING, AIR PUT BACK IN. WILL TRY AGAIN LATER.
--- NOTE | 2016-10-06 19:28 | NUR ---
ASSESSMENT COMPELTE, A&O. IV TO RIGHT FOREARM WITH NS INFUSING AT 100 CC/HR SITE CLEAN AND DRY. TR BAND TO RIGHT WRIST, SMALL AMOUNT OF OLD BLOOD NOTED TO 2X2 UNDER BAND. WILL REASSES WRIST SHORTLY. PT DENIES PAIN OR NEEDS, BED LOW, CL IN REACH.
--- NOTE | 2016-10-06 20:00 | NUR ---
REMOVED TR BAND FROM RIGHT WRIST, THAO SIZED HEMATOMA NOTED AROUND INCISION SITE. NO ACTIVE BLEEDING, MARKED EDGE OF HEMATOMA WITH MARKER, REAPPLIED TR BAND WITH OUT INFLATION, WILL REASSESS SHORTLY, PT CURRENTLY EATING FOOD FROM HIS DINNER TRAY. WILL CONT TO MONITOR.
--- NOTE | 2016-10-06 20:15 | NUR ---
TR BAND REMOVED, HEMATOMA HASNT GROWN ANY LARGER, ACTULLY APPEARS TO BE A LITTLE BIT SMALLER IN SIZE, NO ACTIVE BLEEDING NOTED. COVERED INSERTION SITE WITH 2X2 AND TEGADERM. CALL PLACED TO DR MIRANDA TO INFORM OF SITUATION.
--- NOTE | 2016-10-06 20:25 | NUR ---
NOTIFIED DR MIRANDA OF HEMATOMA AROUND INCISION SITE, INFORMED HIM THAT THE HEMATOMA HAS NOT GROWN OUTSIDE OF DRAWN CABAZON AND APPEARS TO HAVE DECREASSED IN SIZE A LITTLE BIT. ORDERS GIVEN THAT WE MAY KEEP OVER IGHT FOR OBSERVATION AND DC AM. NOTIFIED PT THAT WE WILL BE KEEPING HIM OVER NIGHT AND PT AGREES THAT, THAT WOULD BE BEST.
--- NOTE | 2016-10-06 20:33 | NUR ---
UP WITH ASSIST TO BR, PT WEAK AND GAIT UNSTEADY.
[2016-10-06 21:05] VITALS: BP 109/64
--- NOTE | 2016-10-06 23:42 | NUR ---
AMBULATING IN ANGULO AROUND NURSES STATION, GAIT STEADY.
--- NOTE | 2016-10-06 23:45 | NUR ---
MULTIMEDIA PRODUCTION ASSISTANT AT BEDSIDE TO OBTAIN VITALS, CALL LIGHT IN REACH. WILL CONTINUE WITH PLAN OF CARE.
[2016-10-07 01:19] VITALS: BP 115/69
--- NOTE | 2016-10-07 02:54 | NUR ---
RESTING WITH EYES CLOSED, RESPERATIONS EVEN, NO S/S DISTRESS NOTED.
[2016-10-07 06:18] VITALS: BP 94/60
--- NOTE | 2016-10-07 07:24 | NUR ---
D/C RT FA IV, TIP INTACT. REMOVED TR BAND AT THIS TIME, NO BLEEDING NOTED, SMALL HEMATOMA NOTED. 0726- PT LEFT UNIT VIA WHEELCHAIR, ACCOMPANIED BY , NAD NOTED.
--- NOTE | 2016-10-08 11:01 | DS ---
PATIENT:CAROL RODRÍGUEZ :51 MEDICAL RECORD: [id number] DISCHARGE SUMMARY ADMISSION DATE: 10/05/16 DISCHARGE DATE: 10/07/16 DISCHARGE SUMMARY PROBLEM LIST: 1. Angina. 2. Coronary artery disease. 3. Percutaneous transluminal coronary angioplasty stent left anterior descending this admission. HOSPITAL COURSE: This is a gentleman who presents with anginal symptomatology. He was found to have single vessel disease of the left anterior descending and underwent successful percutaneous transluminal coronary angioplasty stent of the left anterior descending. PLAN: The patient was discharged home with the addition of aspirin and Plavix to his medical regimen. He will follow up with [facility] in one month. AMRITA MIRANDA MD at 1101 CC: [id number] DICTATION DATE: 10/06/16 1500 SOAKER SODA WORKER: RUBY 10/07/16 0903 DIS IN 10/07/16 [place] [id number] [place] [address]
--- NOTE | 2016-10-08 11:01 | OP ---
PATIENT NAME: CAROL RODRÍGUEZ MEDICAL RECORD: [id number] :51 LOCATION:D.M2 D.2122 ADMISSION DATE:10/05/16 SURGEON: AMRITA MIRANDA MD OPERATION DATE: 10/06/16 PROCEDURES: 1. Percutaneous transluminal coronary angioplasty stent left anterior descending. 2. Left heart catheterization. 3. Selective coronary angiography. 4. Left ventriculogram. 5. Intravascular ultrasound. INDICATION: 1. Angina. 2. Coronary artery disease. PROCEDURE IN DETAIL: After informed consent was obtained and after detailed explanation of risks, benefits, as well as alternative therapies, the patient elected to proceed with angiogram and angioplasty. The right radial area was prepped and draped in a normal sterile fashion. The right radial artery was cannulated via modified Seldinger technique with placement of 6-Ukrainian sheath. All catheters exchanged through this sheath. FINDINGS: Left ventriculogram was performed in standard 30 degree ASHLEY view, reveals good cardiac wall motion throughout all segments. Overall ejection fraction 50%. SELECTIVE CORONARY ANGIOGRAPHY: 1. The left main showed no significant angiographic disease. 2. The left anterior descending has 74% stenosis proximally confirmed by intravascular ultrasound. 3. The left circumflex shows mild irregularities but no flow-limiting stenosis. 4. The right coronary artery has mild irregularities but no flow-limiting stenosis. PTCA STENT OF THE LEFT ANTERIOR DESCENDING: The stent used was a 3.0 X 38 millimeter Resolute. The result was 0% residual stenosis. OVERALL IMPRESSION: Successful percutaneous transluminal coronary angioplasty stent of the left anterior descending going from greater than 74% initial stenosis to 0% residual stenosis. AMRITA MIRANDA MD at 1101 CC: [id number] DICTATION DATE: 10/06/16 1500 CUSTOMER SUPPLY COORDINATOR: DM 10/07/16 0908 DIS IN 10/07/16 [place] [id number] [place] [address]
== END 2016-10-07 07:26 | disposition home or self-care (01) ==
LOC: D.ER 21:05 → D.M2 23:42 → OBSVTIME 23:43 → D.M2 10-07 07:26
PROVIDERS: Emergency Medicine; Internal Medicine Interventional Cardiology; ADMIT Emergency Medicine
DX: I25.119 Atherosclerotic heart disease of native coronary artery with unspecified angina pectoris (principal); Z87.891 Personal history of nicotine dependence; J44.9 Chronic obstructive pulmonary disease, unspecified

== ENCOUNTER 2016-10-07 18:39 | Emergency (ER) | payer OTHER ==
[2016-10-05 23:58] VITALS: BMI 26.4
[2016-10-07 19:49] LABS: BASOPHILS 0.3 % (0-2); EOSINOPHILS 4.2 % (0-7); HEMATOCRIT 38.5 % (42.0-54.0); IMMATURE GRANULOCYTES 0.3 % (0-5); LYMPHOCYTES 18.8 % (15-50); MCH 31.1 pg (26.0-34.0); MCHC 33.8 g/dL (31.0-37.0); MCV 92.1 fL (80.0-100.0); MEAN PLATELET VOLUME 9.3 fL (7.4-10.4); MONOCYTES 11.9 % (2-11); NEUTROPHILS 64.5 % (40-80); PLATELET COUNT 236 10x3/uL (130-400); RBC 4.18 10x6/uL (4.20-6.10); WBC 6.1 10x3/uL (4.8-10.8)
[2016-10-07 20:09] LABS: ALBUMIN 3.1 g/dL (3.4-5.0); ALKALINE PHOSPHATASE 142 U/L (46-116); ALT (SGPT) 18 U/L (10-68); CALC OSMOLALITY 276 mosm/kg (275-300); CALCIUM 8.4 mg/dL (8.5-10.1); CHLORIDE - SERUM 105 mmol/L (98-107); CREATININE - SERUM 0.9 mg/dL (0.6-1.3); GLUCOSE 98 mg/dL (74-106); POTASSIUM - SERUM 4.3 mmol/L (3.5-5.1); PROTEIN - SERUM 7.1 g/dL (6.4-8.2); SODIUM 139 mmol/L (136-145); eGFR NON AFRICAN AMERICAN > 90 mL/min (90-120)
[2016-10-07 20:10] LABS: UREA NITROGEN 10 mg/dL (7-18)
[2016-10-07 20:26] LABS: CHOL - HDL RATIO 3.6 ratio (2.3-4.9); CHOLESTEROL, TOTAL 163 mg/dL (0-200); CKMB 0.7 U/L (0.0-3.6); CREATINE KINASE 116 UL (21-232); HDL CHOLESTEROL 45 mg/dL (32-96); LDL CHOLESTEROL 101 mg/dL (0-100); LDL-HDL RATIO 2.2 ratio (1.5-3.5); TRIGLYCERIDE 87 mg/dL (30-200)
[2016-10-07 20:27] LABS: TROPONIN-I 0.284 ng/mL (0.000-0.060)
== END 2016-10-07 21:17 | disposition home or self-care (01) ==
LOC: D.ER 18:39
PROVIDERS: Emergency Medicine
DX: R07.9 Chest pain, unspecified (principal); J44.9 Chronic obstructive pulmonary disease, unspecified; F17.200 Nicotine dependence, unspecified, uncomplicated

== ENCOUNTER 2017-02-22 10:46 | Emergency (ER) | payer OTHER ==
[2016-10-05 23:58] VITALS: BMI 26.4
[2017-02-22 11:11] LABS: BASOPHILS 0.9 % (0-2); EOSINOPHILS 2.8 % (0-7); HEMATOCRIT 42.7 % (42.0-54.0); HEMOGLOBIN 14.5 g/dL (13.5-17.5); IMMATURE GRANULOCYTES 0.3 % (0-5); LYMPHOCYTES 35.6 % (15-50); MCH 30.7 pg (26.0-34.0); MCV 90.5 fL (80.0-100.0); MEAN PLATELET VOLUME 9.3 fL (7.4-10.4); MONOCYTES 11.4 % (2-11); RBC 4.72 10x6/uL (4.20-6.10); RDW 12.9 % (11.5-14.5); WBC 3.2 10x3/uL (4.8-10.8)
[2017-02-22 11:27] LABS: ALBUMIN 3.3 g/dL (3.4-5.0); ALKALINE PHOSPHATASE 121 U/L (46-116); ALT (SGPT) 30 U/L (10-68); BILIRUBIN - TOTAL 0.21 mg/dL (0.2-1.3); CALC OSMOLALITY 276 mosm/kg (275-300); CALCIUM 8.5 mg/dL (8.5-10.1); CARBON DIOXIDE 23.4 mmol/L (21.0-32.0); CHLORIDE - SERUM 104 mmol/L (98-107); GLUCOSE 107 mg/dL (74-106); POTASSIUM - SERUM 3.9 mmol/L (3.5-5.1); PROTEIN - SERUM 7.3 g/dL (6.4-8.2); SODIUM 138 mmol/L (136-145); UREA NITROGEN 15 mg/dL (7-18); eGFR NON AFRICAN AMERICAN 80 mL/min (90-120)
[2017-02-22 11:31] LABS: PLATELET COUNT 178 10x3/uL (130-400)
[2017-02-22 11:35] LABS: CHOL - HDL RATIO 3.3 ratio (2.3-4.9); CHOLESTEROL, TOTAL 165 mg/dL (0-200); CKMB 1.5 U/L (0.0-3.6); CREATINE KINASE 126 UL (21-232); HDL CHOLESTEROL 50 mg/dL (32-96); LDL CHOLESTEROL 83 mg/dL (0-100); LDL-HDL RATIO 1.7 ratio (1.5-3.5); TRIGLYCERIDE 162 mg/dL (30-200)
[2017-02-22 11:38] LABS: TROPONIN-I < 0.017 ng/mL (0.000-0.060)
== END 2017-02-22 13:14 | disposition home or self-care (01) ==
LOC: D.ER 10:46
PROVIDERS: Emergency Medicine
DX: R07.9 Chest pain, unspecified (principal); I25.10 Atherosclerotic heart disease of native coronary artery without angina pectoris; J44.9 Chronic obstructive pulmonary disease, unspecified

== ENCOUNTER 2017-03-07 18:16 | Emergency (ER) | payer OTHER ==
[2016-10-05 23:58] VITALS: BMI 26.4
== END 2017-03-07 20:39 | disposition home or self-care (01) ==
LOC: D.ER 18:16
DX: S60.222A Contusion of left hand, initial encounter (principal); X58.XXXA Exposure to other specified factors, initial encounter; Y93.89 Activity, other specified; Y92.019 Unspecified place in single-family (private) house as the place of occurrence of the external cause; J44.9 Chronic obstructive pulmonary disease, unspecified

== ENCOUNTER 2017-04-18 03:48 | Emergency (ER) | payer OTHER ==
[2016-10-05 23:58] VITALS: BMI 26.4
[2017-04-18 04:39] LABS: BASOPHILS 0.5 % (0-2); EOSINOPHILS 2.1 % (0-7); HEMATOCRIT 39.3 % (42.0-54.0); HEMOGLOBIN 13.5 g/dL (13.5-17.5); IMMATURE GRANULOCYTES 0.5 % (0-5); LYMPHOCYTES 18.7 % (15-50); MCH 30.9 pg (26.0-34.0); MCHC 34.4 g/dL (31.0-37.0); MCV 89.9 fL (80.0-100.0); MEAN PLATELET VOLUME 9.7 fL (7.4-10.4); MONOCYTES 15.7 % (2-11); NEUTROPHILS 62.5 % (40-80); PLATELET COUNT 200 10x3/uL (130-400); RBC 4.37 10x6/uL (4.20-6.10); RDW 13.3 % (11.5-14.5); WBC 4.3 10x3/uL (4.8-10.8)
[2017-04-18 04:55] LABS: ALBUMIN 3.5 g/dL (3.4-5.0); ALKALINE PHOSPHATASE 136 U/L (46-116); ALT (SGPT) 22 U/L (10-68); CALC OSMOLALITY 276 mosm/kg (275-300); CALCIUM 8.5 mg/dL (8.5-10.1); CARBON DIOXIDE 23.6 mmol/L (21.0-32.0); CHLORIDE - SERUM 106 mmol/L (98-107); GLUCOSE 101 mg/dL (74-106); POTASSIUM - SERUM 3.8 mmol/L (3.5-5.1); SODIUM 139 mmol/L (136-145); UREA NITROGEN 10 mg/dL (7-18); eGFR NON AFRICAN AMERICAN 80 mL/min (90-120)
[2017-04-18 04:58] LABS: CKMB 0.6 U/L (0.0-3.6); CREATINE KINASE 127 UL (21-232); TROPONIN-I < 0.017 ng/mL (0.000-0.060)
== END 2017-04-18 08:30 | disposition home or self-care (01) ==
LOC: D.ER 03:48
PROVIDERS: Family Medicine
DX: J20.9 Acute bronchitis, unspecified (principal); J44.9 Chronic obstructive pulmonary disease, unspecified

== ENCOUNTER 2017-08-08 06:51 | Day surgery (SDC) | payer OTHER ==
[~2017-08-08] VITALS: Ht 172.7 cm; Wt 81.8 kg
--- NOTE | ~2017-08-08 | OP ---
PATIENT NAME: CAROL RODRÍGUEZ MEDICAL RECORD: [id number] :51 LOCATION:[facility] ADMISSION DATE: SURGEON: JAYLON GARRIDO DO DATE OF OPERATION: 08/08/2017 PROCEDURE: Colonoscopy with polypectomy. INDICATIONS FOR PROCEDURE: Previous abnormal colonoscopy with question of a rectosigmoid colonic mass. This is a followup from his previous flexible sigmoidoscopy 1 year ago on 08/25/2016. SCOPE: Olympus video pediatric colonoscope. MEDICATIONS: Propofol 250 mg IV per anesthesia. WITHDRAWAL TIME: 16 minutes. ESTIMATED BLOOD LOSS: Minimal. COMPLICATIONS: None. FINDINGS: Informed consent was given. The patient was made comfortable with the above medication. After reaching an adequate level of sedation by slow IV push, the patient was placed on his left side. A digital rectal examination was performed and was normal. The endoscope was then advanced under direct visualization through the rectum to the cecum, confirmed by the presence of the appendiceal orifice and ileocecal valve. The endoscope was slowly withdrawn. Mucosa was carefully examined. The prep quality was fair. There were 6 polyps located on today's examination. All were benign-appearing and sessile, and ranged in size from 2-5 mm in diameter. Two of these were located in the transverse colon, the other 4 were in the descending colon. All were removed using hot forceps in 1 piece and completely retrieved. There was evidence of mild diverticulosis involving the rectosigmoid and sigmoid colon. The previously identified site where the tattoo was placed was again visualized. The mucosa appeared normal. There was no evidence of diverticulitis or masses within this site. No biopsies were taken on today's examination. The endoscope was retroflexed in the rectum with a normal appearing rectal wall. The endoscope was then withdrawn from the patient. The patient tolerated the procedure well and there were no complications. IMPRESSION: 1. Very mild diverticulosis of the sigmoid and rectosigmoid junction. 2. Previously placed tattoo was again identified with normal surrounding mucosa. 3. Multiple polyps as described above, removed with hot forceps from the descending colon and transverse colon. PLAN AND RECOMMENDATIONS: 1. Discharge home when recovery parameters are met. 2. High fiber diet. 3. Continue current medications. 4. Recall colonoscopy in 3 years for continued surveillance based on personal history of polyps. TRANSINT:[id number] Voice Confirmation ID: [id number] DOCUMENT ID: [id number] OPERATIVE REPORT [id number] CAROL RODRÍGUEZ,JAYLON Acosta DO at 0934 CC: [id number] DICTATION DATE: 08/08/17 0858 TECHNOLOGY SALES SPECIALIST: 08/08/17 1120 [facility] 08/08/17 [place] [address] [place] [id number]
[2017-08-08 07:38] VITALS: BP 108/73; Ht 172.7 cm; Wt 81.8 kg
[2017-08-08 07:39] LABS: HEMATOCRIT 42.2 % (42.0-54.0); HEMOGLOBIN 14.2 g/dL (13.5-17.5); MCH 30.3 pg (26.0-34.0); MCHC 33.6 g/dL (31.0-37.0); MCV 90.2 fL (80.0-100.0); MEAN PLATELET VOLUME 9.8 fL (7.4-10.4); RBC 4.68 10x6/uL (4.20-6.10); RDW 13.1 % (11.5-14.5); WBC 4.3 10x3/uL (4.8-10.8)
[2017-08-08] MEDS ORDERED: PROAIR HFA8.5 GM INH (07:41)
== END 2017-08-08 09:51 | disposition home or self-care (01) ==
LOC: D.OPS 06:51
PROVIDERS: Anesthesiology
DX: K63.5 Polyp of colon (principal); F17.200 Nicotine dependence, unspecified, uncomplicated; J44.9 Chronic obstructive pulmonary disease, unspecified; I25.10 Atherosclerotic heart disease of native coronary artery without angina pectoris; Z01.812 Encounter for preprocedural laboratory examination

== ENCOUNTER 2017-08-11 15:12 | Emergency (ER) | payer OTHER ==
[2017-08-08 07:38] VITALS: BMI 27.4
[~2017-08-11 15:12] MED LIST changes: +PROAIR HFA8.5 GM INH
[2017-08-11 15:32] LABS: BASOPHILS 0.4 % (0-2); EOSINOPHILS 3.3 % (0-7); HEMATOCRIT 38.8 % (42.0-54.0); HEMOGLOBIN 13.4 g/dL (13.5-17.5); IMMATURE GRANULOCYTES 0.4 % (0-5); LYMPHOCYTES 31.3 % (15-50); MCH 30.6 pg (26.0-34.0); MCHC 34.5 g/dL (31.0-37.0); MCV 88.6 fL (80.0-100.0); MEAN PLATELET VOLUME 9.8 fL (7.4-10.4); MONOCYTES 9.3 % (2-11); NEUTROPHILS 55.3 % (40-80); PLATELET COUNT 201 10x3/uL (130-400); RBC 4.38 10x6/uL (4.20-6.10); RDW 12.7 % (11.5-14.5); WBC 5.1 10x3/uL (4.8-10.8)
[2017-08-11 15:47] LABS: ALBUMIN 3.3 g/dL (3.4-5.0); ALKALINE PHOSPHATASE 138 U/L (46-116); ALT (SGPT) 26 U/L (10-68); CALC OSMOLALITY 281 mosm/kg (275-300); CALCIUM 8.8 mg/dL (8.5-10.1); CARBON DIOXIDE 26.3 mmol/L (21.0-32.0); CHLORIDE - SERUM 107 mmol/L (98-107); GLUCOSE 103 mg/dL (74-106); POTASSIUM - SERUM 3.8 mmol/L (3.5-5.1); PROTEIN - SERUM 7.4 g/dL (6.4-8.2); SODIUM 142 mmol/L (136-145); UREA NITROGEN 9 mg/dL (7-18); eGFR NON AFRICAN AMERICAN 80 mL/min (90-120)
[2017-08-11 16:00] LABS: CKMB 0.2 U/L (0.0-3.6); CREATINE KINASE 146 UL (21-232)
[2017-08-11 16:05] LABS: TROPONIN-I < 0.017 ng/mL (0.000-0.060)
[2017-08-11 17:20] LABS: APPEARANCE CLEAR (CLEAR); BILIRUBIN NEGATIVE (NEGATIVE); COLOR YELLOW (YELLOW); GLUCOSE NEGATIVE (NEGATIVE); KETONE NEGATIVE (NEGATIVE); NITRITE NEGATIVE (NEGATIVE); PROTEIN NEGATIVE (NEGATIVE); UROBILINOGEN NORMAL (NORMAL)
== END 2017-08-11 17:19 | disposition home or self-care (01) ==
LOC: D.ER 15:12
PROVIDERS: Emergency Medicine; Physician Assistant
DX: R07.9 Chest pain, unspecified (principal); J44.9 Chronic obstructive pulmonary disease, unspecified

== ENCOUNTER 2017-11-12 07:36 | Outpatient (CLI) | payer OTHER ==
[~2017-11-12] VITALS: Ht 172.7 cm; Wt 85.0 kg
--- NOTE | ~2017-11-12 | OP ---
PATIENT NAME: CAROL RODRÍGUEZ MEDICAL RECORD: [id number] :51 LOCATION:[facility] ADMISSION DATE: SURGEON: AMRITA MIRANDA MD DATE OF OPERATION: 11/14/2017 PROCEDURES: 1. PTCA stent RCA. 2. Selective coronary angiography. INDICATION: Angina and coronary artery disease. PROCEDURE IN DETAIL: After informed consent was obtained and after a detailed description of risks, benefits as well as alternative therapies, the patient elected to proceed with angiogram and angioplasty. The right femoral area was prepped and draped in normal sterile fashion. Right femoral artery was cannulated via modified Seldinger technique with placement of 6-English sheath. All catheters exchanged through this sheath. FINDINGS: The right coronary artery has 90% stenosis in the mid vessel. This was addressed with a 2.25 x 15 mm Jass stent. Result was 0% residual stenosis. OVERALL IMPRESSION: Successful percutaneous transluminal coronary angioplasty stent of the right coronary artery going from 90% initial stenosis to 0% residual stenosis. TRANSINT:[id number] Voice Confirmation ID: [id number] DOCUMENT ID: [id number] AMRITA MIRANDA MD at 1642 CC: [id number] DICTATION DATE: 11/14/17 0922 MANAGER HOUSEKEEPING: 11/14/17 1053 DEP CLI 11/14/[address] [address]
--- NOTE | ~2017-11-12 | HEMODYNAMI ---
PATIENT:CAROL RODRÍGUEZ MEDICAL RECORD: [id number] : 51 LOCATION:[facility] D[facility] ADMISSION DATE: 11/12/17 Generatedon:11/14/20179:21 Patient name: CAROL RODRÍGUEZ Patient #: [id number] SSN: : Date of study: 11/14/2017 Page: Of Hemodynamic Procedure Report Patient Data Patient Demographics Procedure consent was obtained First Name: CRAOL Gender: Male Last Name: ANNE : 1955 [facility] Initial: JEAN-PAUL Age: 62 year(s) Patient #: [id number] Race: Additional ID: [id number] Contact details Address: [address] [place] [address] State: [place] City: [place] Zip code: [address] Past Medical History Allergies Allergen Reaction Date Comments Reported Penicillins 12/25/2014 Penicillins 11/13/2017 Admission Admission Data Admission Date: 11/12/2017 Admission Time: 7:36 Room #: [facility] Lab Results Lab Result Date: 11/13/2017 Lab Result Time: 0:00 Biochemistry Name Units Result Min Max BUN mg/dl 15 --(--*-)-- 7 18 Creatinine mg/dl 0.9 --(-*--)-- 0.6 1.3 Procedure Procedure Types Cath Procedure Diagnostic Procedure Sedation Charges Moderate Sedation up to 15 minutes PCI Procedure Coronary Stent Coronary Stent Initial Peripheral Cath Diagnostic Procedure Cath Peripheral Slkzm-Dkkkggx-Pmw-Off Procedure Description Procedure Date Procedure Date: 11/14/2017 Procedure Start Time: 8:57 Procedure End Time: 9:20 Procedure Staff Name Function Robby Navarro MD Performing Physician Nati Tovar RN Nurse Cullen Robbins RT Scrub Krys Bustamante RT Monitor Procedure Data Cath Procedure Fluoroscopy Diagnostic fluoroscopy Total fluoroscopy Time: 8.2 time: 8.2 min min Diagnostic fluoroscopy Total fluoroscopy dose: dose: 1018 mGy 1018 mGy Contrast Material Contrast Material Type Amount (ml) Isovue 300 117 Entry Location Entry Primary Successful Side Size Upsize Upsize Entry Closure Succes sful Closure Location (Fr) 1 (Fr) 2 (Fr) Remarks Device Remarks Femoral Right 6 Fr Exoseal artery Short Estimated blood loss: 10 ml Diagnostic catheters Device Type Used For End Catheter Placement DIAGNOSTIC Pigtail 5Fr Abdominal catheter ([id number]) aortogram with runoff Procedure Complications No complications Procedure Medications Medication Administration Route Dosage Oxygen etCO2 Nasal cannula 2 l/min Lidocaine 2% added to field 20 Heparin Flush Bag added to field 2 bags (1000units/500ml NS) 0.9% NaCl I.V. 100 ml/hr Versed I.V. 1 mg Fentanyl I.V. 50 mcg Versed I.V. 1 mg Fentanyl I.V. 50 mcg Heparin Bolus I.V. 4000 units Fentanyl I.V. 50 mcg Hemodynamics Rest Heart Rate: 64 (bpm) Snapshots Pre Cath Intra NCS Post Cath Vital Signs Time Heart Resp SPO2 etCO2 NIBP (mmHg) Rhythm Pain Sedation Rate (ipm) (%) (mmHg) Status Level (bpm) 8:07:40 62 20 97 0 113/84(96) NSR 0 (11) 10(A) , No pain 8:11:41 67 19 96 0 128/84(115) NSR 0 (11) 10(A) , No pain 8:15:47 67 20 98 29.8 125/87(102) NSR 0 (11) 10(A) , No pain 8:19:55 70 17 97 35 113/79(93) NSR 0 (11) 10(A) , No pain 8:23:59 66 15 97 36.5 114/74(89) NSR 0 (11) 10(A) , No pain 8:28:02 64 16 98 36.5 117/76(94) NSR 0 (11) 10(A) , No pain 8:32:06 66 15 97 37.3 116/78(95) NSR 0 (11) 10(A) , No pain 8:36:12 64 19 97 36.6 110/74(91) NSR 0 (11) 10(A) , No pain 8:40:14 64 14 97 35 108/80(98) NSR 0 (11) 10(A) , No pain 8:44:13 63 15 97 35 116/81(92) NSR 0 (11) 10(A) , No pain 8:48:17 63 19 97 34.3 104/80(89) NSR 0 (11) 10(A) , No pain 8:52:19 66 15 97 39.5 111/72(89) NSR 0 (11) 10(A) , No pain 8:56:20 66 14 97 40.3 116/82(92) NSR 0 (11) 9(A) , No pain 9:00:24 65 17 96 36.6 112/77(88) NSR 0 (11) 9(A) , No pain 9:04:28 69 16 97 23.8 118/77(93) NSR 0 (11) 9(A) , No pain 9:08:28 74 19 97 43.3 135/99(128) NSR 0 (11) 9(A) , No pain 9:12:35 66 15 97 43.3 143/88(136) NSR 0 (11) 9(A) , No pain 9:16:48 73 14 97 44 123/87(102) NSR 0 (11) 10(A) , No pain Medications Time Medication Route Dose Verified Delivered Reason Notes Effectiveness by by 8:14:40 Oxygen etCO2 2 Robby Buffie used for Nasal l/min Melanie Tovar RN procedure cannula 8:14:46 Lidocaine 2% added 20ml Robby Robby for local to vial Melanie Navarro MD anesthetic field 8:14:51 Heparin Flush added 2 Robby Robby used for Bag to bags Melanie Navarro MD procedure (1000units/500ml field NS) 8:14:59 0.9% NaCl I.V. 100 Robby Buffie Per physician ml/hr Melanie Tovar RN 8:50:51 Versed I.V. 1 mg Robby Randhawaie for sedation Melanie Tovar RN 8:50:57 Fentanyl I.V. 50 Robby Buffie for sedation mcg Melanie Tovar RN 8:57:53 Versed I.V. 1 mg Robby Buffie for sedation Melanie Tovar RN 8:57:57 Fentanyl I.V. 50 Robby Randhawaie for sedation mcg Melanie Tovar RN 8:59:20 Heparin Bolus I.V. 4000 Robby Randhawaie for verifi ed units Tauth MD Tovar RN anticoagulation with dr navarro 9:03:17 Fentanyl I.V. 50 Robby Damian for sedation [facility] Desiree MD Tovar vice president quality Log Time Note 7:52:14 Diagnostic Cath status Elective 7:52:16 Time tracking: Regular hours (M-F 7:00 - 5:00) 7:52:20 Plan of Care:Hemodynamics will remain stable., Cardiac rhythm will remain stable., Comfort level will be maintained., Respiratory function will remain adequate., Patient/ family verbilizes understanding of procedure., Procedure tolerated without complication., Recovers from procedure without complications.. 7:54:56 Nati Tovar RN sent for patient. Start room use. 7:55:27 H&P Date Dictated: 11/13/2017 Within 30 days and on chart.. 8:06:28 Patient received from PCU to CCL 2 Alert and oriented. Tansferred to table in Supine position. 8:06:29 Warm blankets applied, and noemi hugger turned on for patient comfort. 8:06:30 Correct patient and procedure confirmed by team. 8:06:31 Signed procedure consent form obtained from patient. 8:06:32 ECG and BP/O2 sat monitors applied to patient. 8:06:36 Vital chart was started 8:08:38 Baseline sample Acquired. 8:08:43 Rhythm: sinus rhythm 8:08:45 Full Disclosure recording started 8:08:47 Pre-procedure instructions explained to patient. 8:08:47 Pre-op teaching completed and patient verbalized understanding. 8:08:49 Family in patients room. 8:08:51 Patient NPO since Midnight. 8:08:57 Is the patient allergic to Iodine/contrast media? No. 8:08:59 Is patient on blood thinner?Yes 8:09:01 ACC The patient was administered the following blood thiners within the last 24 hours: ACCPlavix 8:09:03 Patient diabetic? No. 8:09:37 Previous problem with sedation/anesthesia? No ? 8:09:39 Snore? Yes 8:09:40 Sleep apnea? No 8:09:41 Deviated septum? No 8:09:41 Opens mouth fully? Yes 8:09:42 Sticks out tongue? Yes 8:09:47 Airway obstruction? Yes COPD 8:09:51 Dentures? Yes IN 8:09:54 Pre procedure: right dorsailis pedis pulse 2+ Normal; easily identifiable; not easily obliterated 8:09:56 Patient pain scale 0/10 ?. 8:10:01 IV patent on arrival in left forearm with 0.9% NaCl at [facility]. 8:10:03 Lab results completed and on chart. 8:10:08 Right groin area was prepped with chlora-prep and draped in sterile fashion 8:10:09 Alarms reviewed by R. N. 8:10:09 Sharps counted by scrub and verified by R.N. 8:10:15 Use device set CATH PACK 8:10:17 ACIST Syringe (98006) opened to sterile field. 8:10:17 ACIST Hand Control (95528) opened to sterile field. 8:10:17 ACIST Manifold (69847) opened to sterile field. 8:10:18 Medline Cath Pack ([id number]) opened to sterile field. 8:10:18 Bag Decanter (2002S) opened to sterile field. 8:10:19 DIAGNOSTIC WIRE .035 260cm J wire (760643) opened to sterile field. 8:10:21 Use device set TAUTH PCI 8:10:23 SHEATH Prelude 6Fr 0.035 (SUE-9H-82-035) opened to sterile field. 8:10:24 INFLATOR Merit BasixCompak (UU9906) opened to sterile field. 8:10:26 CHOICE PT Extra Support 182cm wire ([id number]) opened to sterile field. 8:14:40 Oxygen 2 l/min etCO2 Nasal cannula was administered by Nati Tovar RN; used for procedure; 8:14:46 Lidocaine 2% 20ml vial added to field was administered by Robby Navarro MD; for local anesthetic; 8:14:51 Heparin Flush Bag (1000units/500ml NS) 2 bags added to field was administered by Robby Navarro MD; used for procedure; 8:14:59 0.9% NaCl 100 ml/hr I.V. was administered by Nati Tovar RN; Per physician; 8:48:53 Final Timeout: patient, procedure, and site verified with staff and physician. All members of the team are in agreement. 8:48:57 Right groin site verified by team. 8:49:00 Physical assessment completed. ASA score P 2 - A patient with mild systemic disease as per Robby Navarro MD. 8:49:03 Sedation plan: IV Moderate Sedation Medication:Versed, Fentanyl 8:50:51 Versed 1 mg I.V. was administered by Nati Tovar RN; for sedation; 8:50:57 Fentanyl 50 mcg I.V. was administered by Nati Tovar RN; for sedation; 8:57:22 Procedure started. 8:57:26 Local anesthetic to right femoral artery with Lidocaine 2% by Robby Navarro MD.INITIAL ACCESS ONLY 8:57:46 Zero performed for pressure channel P1 8:57:53 Versed 1 mg I.V. was administered by Nati Tovar RN; for sedation; 8:57:57 Fentanyl 50 mcg I.V. was administered by Nati Tovar RN; for sedation; 8:58:21 A 6 Fr Short sheath was inserted into the Right Femoral artery 8:58:35 5 Fr AR 2.0 SH guide catheter was inserted over the wire 8:59:20 Heparin Bolus 4000 units I.V. was administered by aNti Tovar RN; for anticoagulation; verified with dr navarro 8:59:49 CHOICE PT ES wire advanced. 9:01:05 CHOICE PT Floppy J 300cm guide wire ([id number]) opened to sterile field. 9:03:17 Fentanyl 50 mcg I.V. was administered by Nati Tovar RN; for sedation; 9:05:07 Wire removed. unable to cross lesion. 9:05:15 CHOICE PT FLOPPY wire advanced. 9:07:32 FIELDER XT J 300cm guide wire ([id number]) opened to sterile field. 9:07:43 Wire removed. unable to cross lesion. 9:08:48 FIELDER wire advanced. 9:09:22 Inflate balloon Inflation number: 1 A EMERGE OTW 2.5 x 15 balloon ([id number]) was prepped and advanced across the Mid RCA, then inflated to 5 ERVIN for 0:07 (min:sec). 9:09:45 Inflation number: 2 The EMERGE OTW 2.5 x 15 balloon ([id number]) was reinflated across the Mid RCA, to 5 ERVIN for 0:08 (min:sec). 9:10:11 Balloon removed over the wire. 9:12:09 Place stent Inflation Number: 3 A RADHA OTW 2.25 x 15 stent ([id number]) was prepped and advanced across the Mid RCA. The stent was deployed at 9 ERVIN for 0:06 (min:sec). 9:12:56 Stent catheter was removed intact over wire. 9:12:57 Wire removed. 9:12:58 Guide catheter removed. 9:14:02 A DIAGNOSTIC Pigtail 5Fr catheter ([id number]) was advanced over the wire and used for Abdominal aortogram with runoff. 9:14:39 Procedure type changed to Cath procedure, Diagnostic procedure, Sedation Charges, Moderate Sedation up to 15 minutes, PCI procedure, Coronary Stent, Coronary Stent Initial, Peripheral Cath Diagnostic Procedure, Cath Peripheral, Dxwsi-Jiabvov-Woy-Off 9:15:21 Catheter removed. 9:15:32 Sheath removed intact; hemostasis achieved with Exoseal to the Right Femoral artery. 9:15:34 Procedure ended.(Physican Out) 9:15:45 Fluoroscopy time 08.20 minutes. 9:15:49 Flurop Dose total: 1018 9:15:49 Fluoroscopy dose: 1018 mGy 9:15:53 Contrast amount:Isovue 300 117ml. 9:15:54 Sharps counted by scrub and verified by R.N. 9:15:55 Insertion/operative site no bleeding no hematoma. 9:15:57 Post-op/insertion site Right Femoral artery dressed using a 4 x 4 and Tegaderm. 9:16:00 Post right femoral artery:stable, clean and dry 9:16:02 Post Procedure Pulses reassessed and unchanged 9:16:04 Post-procedure physical assessment completed. ASA score P 2 - A patient with mild systemic disease as per Robby Navarro MD. 9:16:06 Post procedure rhythm: unchanged. 9:16:09 Estimated blood loss: 10 ml 9:16:10 Post procedure instruction explained to patient.Patient verbalizes understanding. 9:16:10 Patient needs reinforcement of post procedure teaching. 9:16:14 Procedure Complication : No complications 9:16:16 See physician's report for complete and final results. 9:16:29 EXOSEAL 6Fr (EX600) opened to sterile field. 9:17:00 Tegaderm 4 x 4 (1626W) opened to sterile field. 9:17:45 GUIDE 6FR AR 2.0 SH catheter ([id number]) opened to sterile field. 9:18:07 Procedure and supply charges have been captured, reviewed, submitted and are correct. 9:20:17 Vital chart was stopped 9:20:19 Report given to Pre/Post Procedure Room. 9:20:21 Patient transfered to Pre/Post Procedure Room with Stretcher. 9:20:29 Procedure ended. 9:20:29 Full Disclosure recording stopped 9:20:32 End room use (Document Last) Intervention Summary Intervention Notes Time ActionType Lesion and Equipment Action# Pressure Duration Attributes Used 9:09:22 Inflate Mid RCA EMERGE OTW 1 5 00:07 balloon 2.5 x 15 balloon ([id number]) 9:09:45 Reinflate Mid RCA EMERGE OTW 2 5 00:08 balloon 2.5 x 15 balloon ([id number]) 9:12:09 Place stent Mid RCA RADHA OTW 2.25 3 9 00:06 x 15 stent ([id number]) Device Usage Item Name Manufacture Quantity Catalog Number Hospital Part Current Minimal Lot# / Charge Number Stock Stock Serial# Code ACIST Syringe Acist 1 54493 159414 408257 364616 20 (21493) [employer] Inc ACIST Hand Acist 1 63649 473808 033448 498548 5 Control (18771) [employer] Inc ACIST Manifold Acist 1 90814 585943 543388 891881 5 (73979) [employer] Inc Medline Cath Cardinal 1 [id number] 321006 61143 953351 5 [facility] ([id number]) Bag Decanter Microtek 1 2001S 753744 13185 113287 5 () Medical Inc. DIAGNOSTIC WIRE St Baldomero 1 926156 105056 687481 371081 30 .035 260cm J wire (533764) SHEATH Prelude Merit 1 FVD-9S-90-35 229653 7769172 956189 5 6Fr 0.035 Medical (CWP-1E-09-035) INFLATOR Merit Merit 1 KH5489 268735 785816 308956 15 BasixCompak Medical (XC9255) CHOICE PT Extra [place] 1 [id number] 192155 374614 620269 5 Support 182cm Scientific wire ([id number]) CHOICE PT [place] 1 [id number] 835776 589304 039096 5 Floppy J 300cm Scientific guide wire ([id number]) FIELDER XT J Rose 1 [id number] 960108 811360 131188 5 300cm guide Vascular wire ([id number]) EMERGE OTW 2.5 [place] 1 [id number] 075709 415925 449824 5 [id number] x 15 balloon Scientific ([id number]) RADHA OTW 2.25 x Medtronic 1 [id number] 735128 86668 323182 5 [id number] 15 stent ([id number]) DIAGNOSTIC Cardinal 1 [id number] 867426 137205 084972 5 Pigtail 5Fr Health catheter ([id number]) EXOSEAL 6Fr Cardinal 1 EX600 756491 001084 519909 10 (EX600) Health Tegaderm 4 x 4 3M 1 1626W 147334 137199 188889 5 (1626W) GUIDE 6FR AR Medtronic 1 [id number] 998937 97333 879175 1 2.0 SH catheter ([id number]) Signature Audit [place] Stage Time Signature Unsigned Intra-Procedure 11/14/2017 Krys 9:20:49 AM Counts RT(R) Signatures Monitor : Krys Signature : Counts RT Date : Time : [address] [address]
--- NOTE | ~2017-11-12 | OP ---
PATIENT NAME: CAROL RODRÍGUEZ MEDICAL RECORD: [id number] :51 LOCATION:D.OPS ADMISSION DATE: SURGEON: AMRITA MIRANDA MD DATE OF OPERATION: 11/13/2017 PROCEDURES: 1. PTCA and stent, LAD. 2. Left heart catheterization. 3. Selective coronary angiography. 4. Left ventriculogram. 5. Intravascular ultrasound. INDICATION: Unstable angina and coronary disease. PROCEDURE IN DETAIL: After informed consent was obtained and after detailed description of risks and benefits as well as alternative therapies, the patient elected to proceed with angiogram and angioplasty. The right radial area was prepped and draped in normal sterile fashion. Right radial artery was cannulated via modified Seldinger technique with placement of 6-Ukrainian sheath. All catheters were exchanged through this sheath. FINDINGS: Left ventriculogram was performed in standard 30-degree ASHLEY view, reveals good cardiac wall motion throughout all segments. Overall ejection fraction estimated at 55% to 60%. SELECTIVE CORONARY ANGIOGRAPHY: 1. Left main is with no significant angiographic disease. 2. Left anterior descending has 70% stenosis proximally, confirmed by intravascular ultrasound. 3. Left circumflex has mild irregularities and no flow-limiting stenosis. 4. Right coronary artery has 90% stenosis in the mid vessel. PTCA AND STENT OF THE LAD: The stent used was 4.0 x 12-mm Jass. Result was 0% residual stenosis. OVERALL IMPRESSION: Successful PTCA and stent of the LAD, going from 70% initial stenosis to 0% residual. PLAN: PTCA and stent of the RCA. TRANSINT:[id number] Voice Confirmation ID: [id number] DOCUMENT ID: [id number] AMRITA MIRANDA MD at 1642 CC: [id number] DICTATION DATE: 11/13/17 1148 HIDE STRETCHER HAND: 11/13/17 1249 DEP CLI 11/14/17 [place] [address]
--- NOTE | ~2017-11-12 | HP ---
PATIENT: CAROL RODRÍGUEZ MEDICAL RECORD: [id number] ACCOUNT: [id number] LOCATION:[address] : 51 ADMISSION DATE: 11/12/17 HISTORY AND PHYSICAL EXAMINATION DIAGNOSES: 1. Unstable angina. 2. Coronary artery disease. 3. Previous multivessel percutaneous transluminal coronary angioplasty stent. 4. Smoking history. 5. Chronic obstructive pulmonary disease. 6. Gastroesophageal reflux disease. HISTORY OF PRESENT ILLNESS: Mr. Rodríguez has past history of coronary artery disease, multivessel PTCA stent, last being approximately 2 years ago. He had onset of severe chest discomfort just like that of his previous angina today that lasted for multiple hours, relieved with multiple sublingual nitro. He is pain free at this time. His EKG is with no acute ST elevation. REVIEW OF SYSTEMS: The patient reports easy bruising but reports no swollen glands. The patient reports no fever, no night sweats, no significant weight gain, no significant weight loss. No significant exercise tolerance. The patient reports no dry eyes, no irritation, no vision change. Patient reports no difficulty hearing and no ear pain. Patient reports no frequent nose bleeds or nose and sinus problems. Patient reports on arm pain on exertion. No shortness of breath while lying down. No history of heart murmur. Patient reports no cough, no wheezing or coughing up blood. Patient reports no abdominal pain, no vomiting. Normal appetite. No diarrhea and not vomiting blood. No nausea and no constipation. Patient reports no incontinence. No difficulty urinating. No hematuria. No increased frequency. Patient reports no muscle aches. No weakness, no arthralgias, no back pain. No swelling of the extremities. Patient reports no abnormal mole, no jaundice, no rashes. Reports no loss of consciousness. No weakness and no numbness. No seizures, dizziness, or headaches. The patient reports no depression, no sleep disturbance, feeling safe in a relationship and no alcohol abuse. Patient reports on fatigue. Reports no runny nose or sinus pressure. No itching, no hives, and no frequent sneezing. PHYSICAL EXAMINATION: GENERAL APPEARANCE: Well-nourished, well-developed, appears stated age. Level of distress, comfortable. PSYCHIATRIC: Mental status, alert, normal affect. Orientation, oriented to time, place and person. EYES: Lids and conjunctiva, noninjected. No discharge, no pallor. ENT: Lips, teeth, gums, normal dentition. Oropharynx, no cyanosis, no pallor. NECK: Carotid arteries, bilateral normal upstroke, no bruits, no thrills. JUGULAR VEINS: No jugular venous pressure or distention. CERVICAL LYMPH NODES: Nontender, nonenlarged. THYROID: Not enlarged. Nontender. No nodules. LUNGS: Respiratory effort, unlabored. CHEST: Normal curvature. No thoracic deformity. No chest wall tenderness. Percussion, resonant. Auscultation, clear. No wheezes, no rales, no rhonchi. CARDIOVASCULAR: Precordial exam, nondisplaced. No heaves or pericardial thrills. Rate and rhythm, regular. Heart sounds, normal S1, normal S2. No S3, no gallop, no rub. Systolic murmur, not heard. Diastolic murmur, not heard. HISTORY AND PHYSICAL [id number] CAROL RODRÍGUEZ EXTREMITIES: No cyanosis, no edema. Peripheral pulses, full and equal in all extremities, except as noted. No bruits appreciated. ABDOMEN: Soft, nondistended. Normal aorta. No bruit. Nontender. No masses. Liver, nontender, no hepatomegaly. Spleen, nontender, no splenomegaly. MUSCULOSKELETAL: No joint tenderness. No joint swelling. No erythema. NEUROLOGICAL: Normal gait, normal strength, normal tone. SKIN: Warm and dry. OVERALL IMPRESSION: Unstable angina, most likely he has recurrent hemodynamically significant coronary artery disease. We will proceed with coronary angiography. Further care depends upon findings of angiography. TRANSINT:[id number] Voice Confirmation ID: [id number] DOCUMENT ID: [id number] AMRITA MIRANDA MD at 0851 CC: [id number] DICTATION DATE: 11/12/17 1047 CRIB PAD MAKER: 11/12/17 1103 [facility] [address] [place] [address]
--- NOTE | ~2017-11-12 | HEMODYNAMI ---
PATIENT:CAROL RODRÍGUEZ MEDICAL RECORD: [id number] : 51 LOCATION:[facility] D.2116 ADMISSION DATE: 11/12/17 Generatedon:11/13/201711:49 Patient name: CAROL RODRÍGUEZ Patient #: [id number] SSN: : Date of study: 11/13/2017 Page: Of Hemodynamic Procedure Report Patient Data Patient Demographics Procedure consent was obtained First Name: CAROL Gender: Male Last Name: ANNE : 1955 Middle Initial: JEAN-PAUL Age: 62 year(s) Patient #: [id number] Race: Additional ID: [id number] Contact details Address: [address] [place] [address] State: [place] City: [place] Zip code: [address] Past Medical History Allergies Allergen Reaction Date Comments Reported Penicillins 12/25/2014 Penicillins 11/13/2017 Admission Admission Data Admission Date: 11/12/2017 Admission Time: 7:36 Room #: [facility] Lab Results Lab Result Date: 11/13/2017 Lab Result Time: 0:00 Biochemistry Name Units Result Min Max BUN mg/dl 15 --(--*-)-- 7 18 Creatinine mg/dl 0.9 --(-*--)-- 0.6 1.3 Procedure Procedure Types Cath Procedure Diagnostic Procedure [facility] w/Coronaries FFR/IVUS Intra-Coronary IVUS Initial PCI Procedure Coronary Stent Coronary Stent Initial Procedure Description Procedure Date Procedure Date: 11/13/2017 Procedure Start Time: 11:32 Procedure End Time: 11:48 Procedure Staff Name Function Robby Navarro MD Performing Physician Juli Granados RT Monitor Jerry Watts RN Nurse Krys Bustamante RT Scrub Procedure Data Cath Procedure Fluoroscopy Diagnostic fluoroscopy Total fluoroscopy Time: 4 time: 4 min min Diagnostic fluoroscopy Total fluoroscopy dose: 531 dose: 531 mGy mGy Contrast Material Contrast Material Type Amount (ml) Isovue 300 67 Entry Location Entry Primary Successful Side Size Upsize Upsize Entry Closure Morgan ccessful Closure Location (Fr) 1 (Fr) 2 (Fr) Remarks Device Remarks Radial Right 6 Fr Mechanical artery Short Compression Estimated blood loss: 10 ml Diagnostic catheters Device Type Used For End Catheter Placement DIAGNOSTIC Fre[place] 110cm 5 Procedure Fr catheter ([id number]) Procedure Complications No complications Procedure Medications Medication Administration Route Dosage Oxygen etCO2 Nasal cannula 2 l/min Heparin Flush Bag added to field 2 bags (1000units/500ml NS) 0.9% NaCl I.V. 100 ml/hr Radial Cocktail added to field 1 syringe (Verapomil 2mg/Nitro 400mcg/Heparin 1500units) Fentanyl I.V. 50 mcg Versed I.V. 1 mg Radial Cocktail I.A. 1 syringe (Verapomil 2mg/Nitro 400mcg/Heparin 1500units) Fentanyl I.V. 50 mcg Versed I.V. 1 mg Heparin Bolus I.V. 4000 units Hemodynamics Rest Heart Rate: 65 (bpm) Snapshots Pre Cath Intra NCS Post Cath Vital Signs Time Heart Resp SPO2 etCO2 NIBP Rhythm Pain Sedation Rate (ipm) (%) (mmHg) (mmHg) Status Level (bpm) 11:22:40 62 17 91 0 116/81(97) NSR 0 (11) 10(A) , No pain 11:27:19 62 16 97 32.1 101/65(88) NSR 0 (11) 10(A) , No pain 11:31:51 61 17 96 32.9 95/71(85) NSR 0 (11) 9(A) , No pain 11:36:24 70 17 96 15.7 106/60(95) NSR 0 (11) 9(A) , No pain 11:40:58 67 16 96 0 100/67(79) NSR 0 (11) 9(A) , No pain 11:45:31 61 16 96 14.2 102/74(86) NSR 0 (11) 9(A) , No pain Medications Time Medication Route Dose Verified Delivered Reason Not es Effectiveness by by 11:23:36 Oxygen etCO2 2 l/min Robby Edwards Per physician Nasal Melanie Watts RN cannula 11:23:46 Heparin Flush added 2 bags Robby Edwards used for Bag to Melanie Watts pattern hand (1000units/500ml field NS) 11:23:56 0.9% NaCl I.V. 100 Rboby Edwards Per physician ml/hr Melanie Watts RN 11:24:03 Radial Cocktail added 1 Robby Edwards used for (Verapomil to syringe Melanie Watts RN procedure 2mg/Nitro field 400mcg/Heparin 1500units) 11:30:29 Fentanyl I.V. 50 mcg Robby Edwards for sedation Melanie Watts RN 11:30:36 Versed I.V. 1 mg Robby Edwards for sedation Melanei Watts RN 11:33:43 Radial Cocktail I.A. 1 Robby Bustamante for (Verapomil syringe Melanie Navarro MD vasodilation 2mg/Nitro 400mcg/Heparin 1500units) 11:34:16 Fentanyl I.V. 50 mcg Robby Edwards for sedation Melanie Watts RN 11:34:20 Versed I.V. 1 mg Robby Edwards for sedation Melanie Watts RN 11:39:01 Heparin Bolus I.V. 4000 Robby Jacoboy for units Melanie Watts RN anticoagulation Procedure Log Time Note 10:55:43 Krys Counts RT(R) sent for patient. Start room use. 10:56:57 Time tracking: Call back (After hours or weekends) 10:57:01 Plan of Care:Hemodynamics will remain stable., Cardiac rhythm will remain stable., Comfort level will be maintained., Respiratory function will remain adequate., Patient/ family verbilizes understanding of procedure., Procedure tolerated without complication., Recovers from procedure without complications.. 11:05:52 Signed procedure consent form obtained from patient. 11:06:06 H&P Date Dictated: 11/12/2017 Within 30 days and on chart.. 11:06:29 Patient allergic to Penicillins 11:06:56 Lab Result : BUN 15 mg/dl 11:06:56 Lab Result : Creatinine 0.9 mg/dl 11:08:10 Patient received from Med II to CCL 1 Alert and oriented. Tansferred to table in Supine position. 11:08:12 Warm blankets applied, and noemi hugger turned on for patient comfort. 11:08:12 Correct patient and procedure confirmed by team. 11:08:13 ECG and BP/O2 sat monitors applied to patient. 11:16:35 Vital chart was started 11:21:03 Baseline sample Acquired. 11:21:08 Rhythm: sinus rhythm 11:21:09 Full Disclosure recording started 11:21:10 Pre-procedure instructions explained to patient. 11:21:10 Pre-op teaching completed and patient verbalized understanding. 11:21:13 Family in patients room. 11:21:17 Patient NPO since Midnight. 11:21:19 Is the patient allergic to Iodine/contrast media? No. 11:21:20 Is patient on blood thinner?Yes 11:21:22 ACC The patient was administered the following blood thiners within the last 24 hours: ACCPlavix 11:21:26 Patient diabetic? No. 11:21:30 Previous problem with sedation/anesthesia? No ? 11:21:30 Snore? Yes 11:21:33 Sleep apnea? No 11:21:34 Deviated septum? No 11:21:34 Opens mouth fully? Yes 11:21:35 Sticks out tongue? Yes 11:21:38 Airway obstruction? Yes COPD 11:21:41 Dentures? Yes IN 11:21:44 Modified Kolton's test Ulnar < 7 seconds 11:21:50 Patient pain scale 0/10 ?. 11:21:55 IV patent on arrival in left hand with 0.9% NaCl at [facility]. 11:21:57 Lab results completed and on chart. 11:22:01 Right Radial & Right Groin area was prepped with chlora-prep and draped in sterile fashion 11:22:06 Alarms reviewed by R. N. 11:22:07 Sharps counted by scrub and verified by R.N. 11:22:09 Use device set Radial Dx or PCI 11:22:10 ACIST Syringe (79805) opened to sterile field. 11:22:12 Bag Decanter () opened to sterile field. 11:22:12 ACIST Hand Control (98579) opened to sterile field. 11:22:13 ACIST Manifold (06932) opened to sterile field. 11:22:13 Tegaderm 4 x 4 (1626W) opened to sterile field. 11:22:15 Medline Cath Pack ([id number]) opened to sterile field. 11:22:15 DIAGNOSTIC WIRE .035 260cm J wire (922009) opened to sterile field. 11:22:16 MBrace Wrist Support (989001496) opened to sterile field. 11:22:17 SHEATH 6Fr Prelude Radial ([id number]) opened to sterile field. 11::29 STOPCOCK 3-Way Large Bore ([id number]) opened to sterile field. 11:23:36 Oxygen 2 l/min etCO2 Nasal cannula was administered by Jerry Watts RN; Per physician; 11:23:46 Heparin Flush Bag (1000units/500ml NS) 2 bags added to field was administered by Jerry Watts RN; used for procedure; 11::56 0.9% NaCl 100 ml/hr I.V. was administered by Jerry Watts RN; Per physician; 11:24:03 Radial Cocktail (Verapomil 2mg/Nitro 400mcg/Heparin 1500units) 1 syringe added to field was administered by Jerry Watts RN; used for procedure; ::43 Zero performed for pressure channel P1 :57 --------ALL STOP TIME OUT------ :57 Final Timeout: patient, procedure, and site verified with staff and physician. All members of the team are in agreement. 11:30:00 Right Radial & Right Groin site verified by team. 11:30:02 Physical assessment completed. ASA score P 2 - A patient with mild systemic disease as per Robby Navarro MD. 11:30:05 Sedation plan: IV Moderate Sedation Medication:Versed, Fentanyl 11::29 Fentanyl 50 mcg I.V. was administered by Jerry Watts RN; for sedation; ::36 Versed 1 mg I.V. was administered by Jerry Watts RN; for sedation; 11:31:44 Procedure started. 11:32:15 Local anesthetic to right radial artery with Lidocaine 2% by Robby Navarro MD.INITIAL ACCESS ONLY 11:32:40 A 6 Fr Short sheath was inserted into the Right Radial artery 11:32:54 A DIAGNOSTIC Fre[place]ort 110cm 5 Fr catheter (080034) was advanced over the wire and used for Procedure. 11:33:36 LV gram done using ASHLEY 11:33:39 Injector settings: Ml/sec: 7, Volume: 15, :33:43 Radial Cocktail (Verapomil 2mg/Nitro 400mcg/Heparin 1500units) 1 syringe I.A. was administered by Robby Navarro MD; for vasodilation; 11:34:08 EF : 55 % 11:34:16 Fentanyl 50 mcg I.V. was administered by Jerry Watts RN; for sedation; 11:34:20 Versed 1 mg I.V. was administered by Jerry Watts RN; for sedation; 11:35:57 LCA angiography performed. 11:36:18 [place] [employer] IVUS Catheter (44876X) opened to sterile field. 11:36:21 INFLATOR Merit BasixCompak (RR9107) opened to sterile field. 11:36:43 Catheter removed. 11:37:48 GUIDE 6FR XBLAD 3.5 catheter (87799025) opened to sterile field. 11:37:56 6 Fr XBLAD 3.5 guide catheter was inserted over the wire 11:38:01 CHOICE ES 182 wire advanced. 11:38:03 Wire advanced across lesion. 11:39:01 Heparin Bolus 4000 units I.V. was administered by Jerry Watts RN; for anticoagulation; 11:41:41 IVUS catheter advanced over wire. 11:41:44 IVUS pass to LAD lesion performed. 11:41:45 IVUS catheter removed over wire. 11:43:06 Place stent Inflation Number: 1 A RADHA RX 4.0 x 12 stent ([id number]) was prepped and advanced across the Prox LAD. The stent was deployed at 17 ERVIN for 0:10 (min:sec). 11:43:09 TR BAND Standard (IYI69GED) opened to sterile field. 11:43:21 Inflation number: 2 The stent balloon was then re-inflated across the Prox LAD to 17 ERVIN for 0:10 (min:sec). 11:43:33 Stent catheter was removed intact over wire. 11:43:33 Wire removed. 11:43:34 Guide catheter removed. 11:43:42 Procedure ended.(Physican Out) 11:45:15 Sheath removed intact; hemostasis achieved with Mechanical Compression to the Right Radial artery. 11:45:23 Fluoroscopy time 04.00 minutes. 11:45:27 Fluoroscopy dose: 531 mGy 11:45:27 Flurop Dose total: 531 11:45:31 Contrast amount:Isovue 300 67ml. 11:45:32 Sharps counted by scrub and verified by R.N. 11:45:35 TR band inflated with 12cc of air. 11:45:38 Post-procedure physical assessment completed. ASA score P 2 - A patient with mild systemic disease as per Robby Navarro MD. 11:45:45 Post procedure rhythm: unchanged. 11:45:47 Estimated blood loss: 10 ml 11:45:48 Post procedure instruction explained to patient.Patient verbalizes understanding. 11:45:48 Patient needs reinforcement of post procedure teaching. 11:46:06 Procedure type changed to Cath procedure, Diagnostic procedure, LHC, LHC w/Coronaries, FFR/IVUS, Intra-Coronary IVUS Initial, PCI procedure, Coronary Stent, Coronary Stent Initial 11:47:58 Procedure and supply charges have been captured, reviewed, submitted and are correct. 11:48:00 Procedure Complication : No complications 11:48:01 Vital chart was stopped 11:48:05 Report given to PCU. 11:48:07 Patient transfered to PCU with Bed. 11:48:10 Procedure ended. 11:48:10 Full Disclosure recording stopped 11:48:13 End room use (Document Last) Intervention Summary Intervention Notes Time ActionType Lesion and Equipment Used Action# Pressure Duration Attributes 11:43:06 Place stent Prox LAD RADHA RX 4.0 x 1 17 00:10 12 stent ([id number]) 11:43:21 Reinflate Prox LAD RADHA RX 4.0 x 2 17 00:10 stent 12 stent balloon ([id number]) Device Usage Item Name Manufacture Quantity Catalog Number Hospital Part Current Minimal Lot# / Charge Number Stock Stock Serial# Code ACIST Syringe Acist 1 30001 112916 608829 574060 20 (73136) Medical Systems Inc Bag Decanter Microtek 1 2001S 001669 63158 014606 5 (2001S) Medical Inc. ACIST Hand Acist 1 63662 973701 974609 646960 5 Control (25663) Medical Systems Inc ACIST Manifold Acist 1 45294 249120 310630 116987 5 (06003) Medical Systems Inc Tegaderm 4 x 4 3M 1 1626W 517950 840259 106880 5 (1626W) Medline Cath Cardinal 1 [id number] 171969 34577 264959 5 Located Within [facility] ([id number]) DIAGNOSTIC WIRE St Baldomero 1 849927 498277 562239 028407 30 .035 260cm J wire (403908) MBrace Wrist Advanced 1 140-0250-00 642583 78082 690960 5 Support Vascular ([id number]) Dynamics SHEATH 6Fr Merit 1 [id number] 245626 168739 150476 5 Prelude Radial Medical ([id number]) STOPCOCK 3-Way Cook Medical 1 [id number] 752980 6905 489213 5 Large Bore (B55881) DIAGNOSTIC Terumo 1 40-0623 394266 353421 446809 5 Freeport 110cm 5 Fr catheter (040140) [place] 1 [id number] 645774 860325 788122 8 [employer] IVUS Catheter (78281J) INFLATOR Merit Merit 1 VZ1703 918487 481238 151399 15 [facility] (CF0236) GUIDE 6FR XBLAD Cardinal 1 [id number] 220358 576854 210860 10 3.5 catheter Health (90445901) RADHA RX 4.0 x Medtronic 1 [id number] 497102 1682958 805792 5 [id number] 12 stent ([id number]) TR BAND Terumo 1 [id number] 284597 684774 094950 40 Standard ([id number]) Signature Audit [place] Stage Time Signature Unsigned Intra-Procedure 11/13/2017 Juli Granados 11:49:51 AM RT(R) Signatures Monitor : Juli Granados Signature : RT Date : Time : [facility] [address] [place] [address]
--- NOTE | ~2017-11-12 | OP ---
PATIENT NAME: CAROL RODRÍGUEZ MEDICAL RECORD: [id number] :51 LOCATION:D.OPS ADMISSION DATE: SURGEON: AMRITA MIRANDA MD DATE OF OPERATION: 11/14/2017 PROCEDURES: 1. Aortofemoral runoff. 2. Abdominal aortography. INDICATION: Claudication and peripheral vascular disease. PROCEDURE PERFORMED: After informed consent was obtained and after a detailed description of risks, benefits as well as alternative therapies, the patient elected to proceed with angiogram and angioplasty. The right femoral area had a preexisting sheath. All catheters exchanged through this sheath. FINDINGS: The abdominal aortography was performed. The catheter was pulled down for aortofemoral runoff. Abdominal aortography reveals mild to moderate disease of the distal abdominal aorta, but no flow-limiting stenosis. No renal artery stenosis. RIGHT LEG: A. Iliac: The common iliac has moderate diffuse disease, but no flow-limiting stenosis. Internal and external iliacs have mild irregularities, but no flow-limiting stenosis. B. Femoral system: The common, superficial, and deep femoral have moderate irregularities, but no flow-limiting stenosis. C. Popliteal and infrapopliteal vessels have preserved 3-vessel runoff to the foot. LEFT LEG: A. Iliac: The common iliac has moderate diffuse disease, but no flow-limiting stenosis. Internal and external iliacs have mild irregularities, but no flow-limiting stenosis. B. Femoral system: The common, superficial, and deep femoral have moderate irregularities, but no flow-limiting stenosis. C. Popliteal and infrapopliteal vessels have preserved 3-vessel runoff to the foot. OVERALL IMPRESSION: Emia-lt-jjtpcoig irregularities, but no flow limiting stenosis throughout the iliacs and abdominal aorta. Continue medical management of the peripheral vascular disease and peripheral vascular risk factors. TRANSINT:[id number] Voice Confirmation ID: [id number] DOCUMENT ID: [id number] AMRITA MIRANDA MD at 1642 CC: [id number] DICTATION DATE: 11/14/17921 MANUAL ARTS TEACHER: 11/14/17 1053 DEP CLI 11/14/17 [place] [address]
--- NOTE | ~2017-11-12 | DS ---
PATIENT:CAROL RODRÍGUEZ :51 MEDICAL RECORD: [id number] DISCHARGE SUMMARY ADMISSION DATE: 11/12/17 DISCHARGE DATE: 11/14/17 DISCHARGE DIAGNOSES: 1. Angina. 2. Coronary artery disease. 3. Percutaneous transluminal coronary angioplasty stent left anterior descending and right coronary artery this admission. HOSPITAL COURSE: Mr. Rodríguez presents with anginal symptomatology, found to have significant disease of the LAD and RCA, underwent successful PTCA stent of both territories, was discharged home with the addition of aspirin and Plavix to his medical regimen. He will follow up with [facility] in 1 month. TRANSINT:[id number] Voice Confirmation ID: [id number] DOCUMENT ID: [id number] AMRITA MIRANDA MD at 1642 CC: [id number] DICTATION DATE: 11/14/17919 FOAMITE MIXER: 11/14/17 1348 DEP CLI 11/14/17 [place] [address] [place] [address]
[2017-11-12] MEDS ORDERED: MECLIZINE HCL25 MG PO (07:43)
[2017-11-12] MEDS ORDERED: PRILOSEC2.5 MG (07:44)
[2017-11-12 08:23] LABS: BASOPHILS 0.2 % (0-2); EOSINOPHILS 2.1 % (0-7); HEMATOCRIT 40.8 % (42.0-54.0); HEMOGLOBIN 14.1 g/dL (13.5-17.5); IMMATURE GRANULOCYTES 0.2 % (0-5); LYMPHOCYTES 30.7 % (15-50); MCH 30.9 pg (26.0-34.0); MCHC 34.6 g/dL (31.0-37.0); MCV 89.3 fL (80.0-100.0); MEAN PLATELET VOLUME 9.2 fL (7.4-10.4); MONOCYTES 13.1 % (2-11); NEUTROPHILS 53.7 % (40-80); PLATELET COUNT 189 10x3/uL (130-400); RBC 4.57 10x6/uL (4.20-6.10); RDW 13.4 % (11.5-14.5); WBC 4.3 10x3/uL (4.8-10.8)
[2017-11-12 08:43] LABS: ALBUMIN 3.3 g/dL (3.4-5.0); ALKALINE PHOSPHATASE 145 U/L (46-116); ALT (SGPT) 22 U/L (10-68); BILIRUBIN - TOTAL 0.25 mg/dL (0.2-1.3); CALC OSMOLALITY 275 mosm/kg (275-300); CALCIUM 8.9 mg/dL (8.5-10.1); CARBON DIOXIDE 25.6 mmol/L (21.0-32.0); CHLORIDE - SERUM 107 mmol/L (98-107); CREATININE - SERUM 0.9 mg/dL (0.6-1.3); GLUCOSE 113 mg/dL (74-106); POTASSIUM - SERUM 3.7 mmol/L (3.5-5.1); PROTEIN - SERUM 7.1 g/dL (6.4-8.2); SODIUM 137 mmol/L (136-145); UREA NITROGEN 15 mg/dL (7-18); eGFR NON AFRICAN AMERICAN 90 mL/min (90-120)
[2017-11-12 08:51] LABS: LIPASE 162 U/L (73-393); PRO BNP 33 pg/mL (0-125); TROPONIN-I 0.029 ng/mL (0.000-0.060)
[2017-11-12 14:50] VITALS: BP 108/76; Ht 172.7 cm; Wt 85.0 kg
[2017-11-12 15:14] VITALS: BP 108/76
[2017-11-12 20:01] VITALS: BP 105/60
[2017-11-13 00:36] VITALS: BP 97/65
[2017-11-13 05:01] VITALS: BP 103/68
[2017-11-13 08:43] VITALS: BP 115/72
[2017-11-13 16:17] VITALS: BP 106/67
[2017-11-13 20:00] VITALS: BP 102/69
[2017-11-13 23:35] VITALS: BP 109/71
[2017-11-14 07:49] VITALS: BP 121/78
[2017-11-14] MEDS ORDERED: PLAVIX75 MG PO (10:03)
== END 2017-11-14 13:45 ==
LOC: D.CLR 07:36 → D.ER 07:36 → D.OPS 07:36 → D.M2 07:36 → EDSTATUS 11:14 → D.EDHOLD 11:15 → D.M2 12:59 → D.CLR 11-14 09:40 → D.OPS 11-14 13:45
PROVIDERS: Family Medicine
DX: I25.110 Atherosclerotic heart disease of native coronary artery with unstable angina pectoris (principal); J44.9 Chronic obstructive pulmonary disease, unspecified; Z95.5 Presence of coronary angioplasty implant and graft; I70.219 Atherosclerosis of native arteries of extremities with intermittent claudication, unspecified extremity; Z01.812 Encounter for preprocedural laboratory examination

== ENCOUNTER 2017-11-18 19:49 | Emergency (ER) | payer OTHER ==
[~2017-11-18] VITALS: Ht 172.7 cm; Wt 81.8 kg
[~2017-11-18 19:49] MED LIST changes: +MECLIZINE HCL25 MG PO; +PRILOSEC2.5 MG
[2017-11-18 19:52] VITALS: Ht 172.7 cm; Wt 81.8 kg
[2017-11-18 21:14] LABS: BASOPHILS 0.2 % (0-2); EOSINOPHILS 2.5 % (0-7); HEMATOCRIT 41.4 % (42.0-54.0); HEMOGLOBIN 14.1 g/dL (13.5-17.5); IMMATURE GRANULOCYTES 0.2 % (0-5); LYMPHOCYTES 34.9 % (15-50); MCH 30.8 pg (26.0-34.0); MCHC 34.1 g/dL (31.0-37.0); MCV 90.4 fL (80.0-100.0); MEAN PLATELET VOLUME 9.8 fL (7.4-10.4); MONOCYTES 12.7 % (2-11); NEUTROPHILS 49.5 % (40-80); PLATELET COUNT 208 10x3/uL (130-400); RBC 4.58 10x6/uL (4.20-6.10); RDW 13.2 % (11.5-14.5); WBC 4.7 10x3/uL (4.8-10.8)
[2017-11-18 21:28] LABS: APTT 27.2 SECONDS (22.8-39.4); INR 0.95 (0.85-1.17); PROTIME 12.3 SECONDS (11.6-15.0)
[2017-11-18 21:29] LABS: D-DIMER-QUANTITATIVE 2.35 ug/mLFEU (0.20-0.54)
[2017-11-18 21:32] LABS: ALBUMIN 3.4 g/dL (3.4-5.0); ALKALINE PHOSPHATASE 146 U/L (46-116); ALT (SGPT) 30 U/L (10-68); BILIRUBIN - TOTAL 0.19 mg/dL (0.2-1.3); CALC OSMOLALITY 283 mosm/kg (275-300); CALCIUM 8.7 mg/dL (8.5-10.1); CARBON DIOXIDE 27.2 mmol/L (21.0-32.0); CHLORIDE - SERUM 106 mmol/L (98-107); CREATININE - SERUM 1.3 mg/dL (0.6-1.3); GLUCOSE 82 mg/dL (74-106); PROTEIN - SERUM 7.5 g/dL (6.4-8.2); SODIUM 142 mmol/L (136-145); UREA NITROGEN 19 mg/dL (7-18); eGFR NON AFRICAN AMERICAN 59 mL/min (90-120)
[2017-11-18 21:37] LABS: CKMB 0.8 U/L (0.0-3.6); CREATINE KINASE 88 UL (21-232); MAGNESIUM - SERUM 2.2 mg/dL (1.8-2.4); TROPONIN-I < 0.017 ng/mL (0.000-0.060)
[2017-11-19 01:04] VITALS: BP 116/81
== END 2017-11-19 01:50 | disposition home or self-care (01) ==
LOC: D.ER 19:49
PROVIDERS: Family Medicine
DX: R07.9 Chest pain, unspecified (principal); R79.1 Abnormal coagulation profile; R91.8 Other nonspecific abnormal finding of lung field; J44.9 Chronic obstructive pulmonary disease, unspecified

== ENCOUNTER → 2018-03-08 10:54 | Outpatient (CLI) | payer MEDICARE, OTHER ==
[2017-11-18 19:52] VITALS: BMI 27.4
== END | disposition home or self-care (01) ==
LOC: D.LAB 01-24 08:00 → D.RT 01-24 08:00 → D.LAB 01-24 09:00 → D.RT 02-21 08:00 → D.LAB 02-21 09:00 → D.RT 10:54
DX: J44.9 Chronic obstructive pulmonary disease, unspecified (principal)

== ENCOUNTER 2018-06-25 11:07 | Observation (INO) | payer MEDICARE, OTHER ==
[~2018-06-25] VITALS: Ht 172.7 cm; Wt 84.6 kg
--- NOTE | ~2018-06-25 | HEMODYNAMI ---
PATIENT:CAROL RODRÍGUEZ MEDICAL RECORD: [id number] : 51 LOCATION:[facility] D.2114 ADMISSION DATE: 06/25/18 Generatedon:06/26/201811:48 Patient name: CAROL RODRÍGUEZ Patient #: [id number] SSN: : Date of study: 06/26/2018 Page: Of Hemodynamic Procedure Report Patient Data Patient Demographics Procedure consent was obtained First Name: CAROL Gender: Male Last Name: ANNE : 1955 Middle Initial: KEESHAWARD Age: 63 year(s) Patient #: [id number] Race: Additional ID: [id number] Contact details Address: [address] [place] [address] State: [place] City: [place] Zip code: [address] Past Medical History Allergies Allergen Reaction Date Comments Reported Penicillins 12/25/2014 Penicillins 11/13/2017 Other allergy 06/26/2018 N Admission Admission Data Admission Date: 06/25/2018 Admission Time: 13:15 Admit Source: Other Room #: D.2114 Height (in.): 67.72 BSA: 1.97 (m2) Height (cm.): 172 BMI: 28.39 (kg/m2) Weight (lbs.): 185.19 Weight (kg.): 84 Lab Results Lab Result Date: 06/26/2018 Lab Result Time: 11:22 Biochemistry Name Units Result Min Max BUN mg/dl 18 --(---*)-- 7 18 Creatinine mg/dl 1 --(--*-)-- 0.6 1.3 CBC Name Units Result Min Max Hematocrit % 43.1 --(*---)-- 42 54 Hemoglobin g/dl 14.7 --(-*--)-- 13.5 17.5 Procedure Procedure Types Cath Procedure Diagnostic Procedure LHC [facility] w/Coronaries Sedation Charges Moderate Sedation up to 15 minutes PCI Procedure Coronary Stent Coronary Stent Initial Peripheral Cath Diagnostic Procedure Club Concierge Peripheral Procedures Humjb-Lvkrjjh-Uuz-Off Four Vessel Arteriogram Procedure Description Procedure Date Procedure Date: 06/26/2018 Procedure Start Time: 11:28 Procedure End Time: 11:47 Procedure Staff Name Function Robby Navarro MD Performing Physician Alissa Georges RT Monitor Cullen Robbins RT Scrub Riley Ordaz RN Nurse Procedure Data Cath Procedure Fluoroscopy Diagnostic fluoroscopy Total fluoroscopy Time: 3.8 time: 3.8 min min Diagnostic fluoroscopy Total fluoroscopy dose: 816 dose: 816 mGy mGy Contrast Material Contrast Material Type Amount (ml) Isovue 300 149 Entry Location Entry Primary Successful Side Size Upsize Upsize Entry Closure Succes sful Closure Location (Fr) 1 (Fr) 2 (Fr) Remarks Device Remarks Femoral Right 5 Fr 6 Fr Exoseal artery Short Estimated blood loss: 10 ml Diagnostic catheters Device Type Used For End Catheter Placement MULTIPACK 3DRC 5Fr catheter MULTIPACK JL 4.0 5Fr Procedure catheter MULTIPACK Pigtail 5 Fr Procedure catheter Procedure Complications No complications Procedure Medications Medication Administration Route Dosage 0.9% NaCl I.V. 100 ml/hr Oxygen etCO2 Nasal cannula 2 l/min Heparin Flush Bag added to field 2 bags (1000units/500ml NS) Lidocaine 2% added to field 20 Versed I.V. 1 mg Fentanyl I.V. 50 mcg Versed I.V. 1 mg Fentanyl I.V. 50 mcg Heparin Bolus I.V. 4000 units Hemodynamics Rest BSA: 1.97 (m2) O2 Consumption: Estimated: 225.92 (ml/min) O2 Consumption indexed : Estimated:114.68 (ml/min/m) Heart Rate: 65 (bpm) Snapshots Pre Cath Intra NCS Post Cath Vital Signs Time Heart Resp SPO2 etCO2 NIBP (mmHg) Rhythm Pain Sedation Rate (ipm) (%) (mmHg) Status Level (bpm) 11:13:18 63 14 94 113/77(94) NSR 0 (11) 10(A) , No pain 11:17:19 63 12 95 18.9 124/78(112) NSR 0 (11) 10(A) , No pain 11:21:25 61 13 94 18.9 106/76(88) NSR 0 (11) 10(A) , No pain 11:25:29 61 16 95 21.2 121/64(79) NSR 0 (11) 10(A) , No pain 11:29:37 58 17 96 29.5 103/67(80) NSR 0 (11) 9(A) , No pain 11:33:39 68 16 92 36.3 99/68(81) NSR 0 (11) 9(A) , No pain 11:37:36 76 15 92 40.9 110/74(95) NSR 0 (11) 9(A) , No pain 11:41:40 63 16 93 0 117/68(99) NSR 0 (11) 9(A) , No pain 11:45:46 64 17 93 8.3 95/69(84) NSR 0 (11) 10(A) , No pain Medications Time Medication Route Dose Verified Delivered Reason Notes Effectiveness by by 11:11:38 0.9% NaCl I.V. 100 Riley Riley Per physician ml/hr Sushma Ordaz RN RN 11:11:47 Oxygen etCO2 2 Riley Riley for low 02 sats Nasal l/min Sushma Ordaz cannula RN RN 11:11:56 Heparin Flush added 2 Riley Riley used for Bag to bags Sushma Ordaz procedure (1000units/500ml RN RN NS) 11:12:07 Lidocaine 2% added 20ml Riley Riley for local to vial Sushma Ordaz anesthetic RN RN 11:25:51 Versed I.V. 1 mg Riley Riley for sedation Sushma Ordaz RN RN 11:26:01 Fentanyl I.V. 50 Riley Riley for sedation ramin Ordaz RN RN 11:29:15 Versed I.V. 1 mg Riley Riley for sedation Sushma Ordaz RN RN 11:29:20 Fentanyl I.V. 50 Riley Riley for sedation mcg Sushma Ordaz RN RN 11:39:52 Heparin Bolus I.V. 4000 Riley Riley for units Sushma Ordaz anticoagulation RN pattern illustrator Log Time Note 10:56:05 Informed consent obtained and on chart 10:56:12 Admit Source: Other 10:56:30 Diagnostic Cath status Elective 10:56:32 Alissa Georges RT(R) sent for patient. Start room use. 10:56:33 Time tracking: Regular hours (M-F 7:00 - 5:00) 10:56:37 Plan of Care:Hemodynamics will remain stable., Cardiac rhythm will remain stable., Comfort level will be maintained., Respiratory function will remain adequate., Patient/ family verbilizes understanding of procedure., Procedure tolerated without complication., Recovers from procedure without complications.. 10:56:51 H&P Date Dictated: 06/25/2018 Within 30 days and on chart.. 10:57:34 Lab Result : BUN 18 mg/dl 10:57:34 Lab Result : Creatinine 1 mg/dl 10:57:34 Lab Result : Hemoglobin 14.7 g/dl 10:57:34 Lab Result : Hematocrit 43.1 % 10:57:37 Lab results completed and on chart. 11:03:43 Patient received from Med II to CCL 2 Alert and oriented. Tansferred to table in Supine position. 11:03:44 Warm blankets applied, and noemi hugger turned on for patient comfort. 11:03:44 Correct patient and procedure confirmed by team. 11:03:45 ECG and BP/O2 sat monitors applied to patient. 11:03:46 Pre-procedure instructions explained to patient. 11:03:47 Pre-op teaching completed and patient verbalized understanding. 11:11:38 0.9% NaCl 100 ml/hr I.V. was administered by Riley Ordaz RN; Per physician; 11:11:47 Oxygen 2 l/min etCO2 Nasal cannula was administered by Riley Ordaz RN; for low 02 sats; 11:11:56 Heparin Flush Bag (1000units/500ml NS) 2 bags added to field was administered by Riley Ordaz RN; used for procedure; 11:12:07 Lidocaine 2% 20ml vial added to field was administered by Riley Ordaz RN; for local anesthetic; 11:12:12 Vital chart was started 11:14:57 Baseline sample Acquired. 11:15:01 Rhythm: sinus rhythm 11:15:03 Full Disclosure recording started 11:15:07 Family in patients room. 11:15:10 Patient NPO since Midnight. 11:15:22 Patient allergic to Other allergyPCN 11:15:25 Is the patient allergic to Iodine/contrast media? No. 11:15:26 Was the patient premedicated? Yes 11:15:27 Is patient on blood thinner?Yes 11:15:30 ACC The patient was administered the following blood thiners within the last 24 hours: ACCAspirin, ACCPlavix 11:15:32 Patient diabetic? No. 11:15:37 Snore? Yes 11:15:38 Sleep apnea? No 11:15:42 Airway obstruction? Yes COPD 11:15:50 Dentures? Yes removed 11:15:54 Patient pain scale 0/10 ?. 11:16:01 IV patent on arrival in left forearm with 0.9% NaCl at [facility]. 11:16:07 Right groin area was prepped with chlora-prep and draped in sterile fashion 11:16:08 Alarms reviewed by R. N. 11:16:08 Sharps counted by scrub and verified by R.N. 11:16:17 Pre procedure: right dorsailis pedis pulse 1+ Palpable, but thready & weak; easily obliterated 11:16:20 Pre procedure: left dorsailis pedis pulse 1+ Palpable, but thready & weak; easily obliterated 11:18:57 Patient Height : 67.72 inches 11:19:04 Patient Weight : 185.19 lbs 11:23:19 Physician paged 11:23:20 Physician arrived 11:23:21 --------ALL STOP TIME OUT------ 11:23:22 Final Timeout: patient, procedure, and site verified with staff and physician. All members of the team are in agreement. 11:23:25 Right groin site verified by team. 11:23:29 Maximum allowable Isovue 300 dose 300ml. Physician notified. (300ml for normal creatinines. For patients with creatinine of 1.7 or higher multiply weight(kg) x 5 divided by creatinine.) 11:23:33 Fire Safety Assessment: A--An alcohol-based skin anteseptic being used preoperatively., C--Open oxygen or nitrous oxide is being used., D--An ESU, laser, or fiber-optic light is being used. 11:23:38 Physical assessment completed. ASA score P 2 - A patient with mild systemic disease as per Robby Navarro MD. 11:23:43 Sedation plan: IV Moderate Sedation Medication:Versed, Fentanyl 11:23:53 Use device set Femoral Dx 11:23:54 ACIST Syringe (79352) opened to sterile field. 11:23:55 Bag Decanter (2002S) opened to sterile field. 11:23:55 Medline Cath Pack ([id number]) opened to sterile field. 11:23:56 DIAGNOSTIC WIRE .035 260cm J wire (050434) opened to sterile field. 11:23:57 ACIST Hand Control (64821) opened to sterile field. 11:23:57 ACIST Manifold (56568) opened to sterile field. 11:23:58 DIAGNOSTIC Multipack 5Fr catheter set (NX5750) opened to sterile field. 11:24:00 SHEATH 5FR [place] (THN418) opened to sterile field. 11:24:47 Zero performed for pressure channel P1 11:25:23 Zero performed for pressure channel P1 11:25:36 Zero performed for pressure channel P1 11:25:51 Versed 1 mg I.V. was administered by Riley Ordaz RN; for sedation; 11:26:01 Fentanyl 50 mcg I.V. was administered by Riley Ordaz RN; for sedation; 11:27:24 Procedure started. 11:28:13 Local anesthetic to right femoral artery with Lidocaine 2% by Rboby Navarro MD.INITIAL ACCESS ONLY 11:28:23 A 5 Fr sheath was inserted into the Right Femoral artery 11:28:36 J wire advanced. 11:29:15 Versed 1 mg I.V. was administered by Riley Ordaz RN; for sedation; 11:29:20 Fentanyl 50 mcg I.V. was administered by Riley Ordaz RN; for sedation; 11:30:29 illiac stenosis 11:30:50 A MULTIPACK 3DRC 5Fr catheter was advanced over the wire and used for .with glide wire 11:31:13 GLIDE WIRE Super Stiff Angled 260cm ([id number]) opened to sterile field. 11:32:15 A 5 FrFr 3DRC catheter was inserted over the wire. 11:32:22 Right carotid angiography performed. 11:32:23 Left carotid angiography performed. 11:32:52 RCA angiography performed. 11:32:56 Catheter removed. 11:33:07 A MULTIPACK JL 4.0 5Fr catheter was advanced over the wire and used for Procedure. 11:33:57 LCA angiography performed. 11:34:10 Catheter removed. 11:35:55 A MULTIPACK Pigtail 5 Fr catheter was advanced over the wire and used for Procedure. 11:36:00 LV angiography performed. 11:36:16 EF : 60 % 11:37:04 Abdominal angiogram w/ runoff was performed. 11:37:10 Right leg runoff performed. 11:37:12 Left leg runoff performed. 11:37:38 Catheter removed. 11:38:06 INFLATOR Merit Daniella (EP2820) opened to sterile field. 11:38:07 CHOICE PT Extra Support 182cm wire ([id number]) opened to sterile field. 11:38:08 SHEATH 6FR [place] (GBB092) opened to sterile field. 11:38:21 Sheath upsized to a 6 Fr Short. 11:38:36 6 Fr EBU 3.5 guide catheter was inserted over the wire 11:39:52 Heparin Bolus 4000 units I.V. was administered by Riley Ordaz RN; for anticoagulation; 11:40:11 choice pt ex wire advanced. 11:40:22 Wire advanced across lesion. 11:41:36 Inflate balloon Inflation number: 1 A EUPHORA 3.5 x 15 Balloon ([id number]) was prepped and advanced across the Prox CX, then inflated to 13 ERVIN for 0:06 (min:sec). 11:41:58 Balloon removed over the wire. 11:43:02 Place stent Inflation Number: 2 A RADHA RX 4.0 x 12 stent ([id number]) was prepped and advanced across the Prox CX. The stent was deployed at 17 ERVIN for 0:06 (min:sec). 11:43:35 Stent catheter was removed intact over wire. 11:43:36 Wire removed. 11:43:37 Guide catheter removed. 11:43:44 EXOSEAL 6Fr (EX600) opened to sterile field. 11:43:58 Sheath removed intact; hemostasis achieved with Exoseal to the Right Femoral artery. 11:44:48 Procedure ended.(Physican Out) 11:44:57 Fluoroscopy time 03.80 minutes. 11:45:02 Fluoroscopy dose: 816 mGy 11:45:02 Flurop Dose total: 816 11:45:06 Contrast amount:Isovue 300 149ml. 11:45:08 Sharps counted by scrub and verified by R.N. 11:45:09 Insertion/operative site no bleeding no hematoma. 11:45:14 Post-op/insertion site Right Femoral artery dressed using a 4 x 4 and Tegaderm. 11:45:16 Post Procedure Pulses reassessed and unchanged 11:45:19 Post-procedure physical assessment completed. ASA score P 2 - A patient with mild systemic disease as per Robby Navarro MD. 11:45:21 Post procedure rhythm: unchanged. 11:45:24 Estimated blood loss: 10 ml 11:45:25 Post procedure instruction explained to patient.Patient verbalizes understanding. 11:46:49 Procedure type changed to Cath procedure, Diagnostic procedure, LHC, LHC w/Coronaries, Sedation Charges, Moderate Sedation up to 15 minutes, PCI procedure, Coronary Stent, Coronary Stent Initial, Peripheral Cath Diagnostic Procedure, Club Concierge Peripheral Procedures, Aadnz-Qbymuny-Gnn-Off, Four Vessel Arteriogram 11:46:57 Procedure and supply charges have been captured, reviewed, submitted and are correct. 11:47:23 Procedure Complication : No complications 11:47:26 Vital chart was stopped 11:47:27 See physician's report for complete and final results. 11:47:29 Report given to Pre/Post Procedure Room. 11:47:32 Patient transfered to Pre/Post Procedure Room with Stretcher. 11:47:37 Procedure ended. 11:47:37 Full Disclosure recording stopped Intervention Summary Intervention Notes Time ActionType Lesion and Equipment Used Action# Pressure Duration Attributes 11:41:36 Inflate Prox CX EUPHORA 3.5 x 1 13 00:06 balloon 15 Balloon ([id number]) 11:43:02 Place stent Prox CX RADHA RX 4.0 x 2 17 00:06 12 stent ([id number]) Device Usage Item Name Manufacture Quantity Catalog Number Hospital Part Current M inimal Lot# / Charge Number Stock Stock Serial# Code ACIST Syringe Acist 1 78146 379192 264480 247739 2 0 (48526) Medical Systems Inc Bag Decanter Microtek 1 088230 36864 639698 5 () Medical Inc. Medline Cath Medline 1 [id number] 180244 23956 414071 5 Pack ([id number]) DIAGNOSTIC St Baldomero 1 414591 644558 423019 013064 3 0 WIRE .035 260cm J wire (795908) ACIST Hand Acist 1 91669 326007 243311 276222 5 Control Medical (35828) Systems Inc ACIST Manifold Acist 1 45508 769052 547929 430446 5 (41016) Medical Systems Inc DIAGNOSTIC Cardinal 1 VV5270 836068 28763 658625 3 0 Multipack 5Fr Health catheter set (YH3957) SHEATH 5FR Terumo 1 JSH191 120455 177665 866880 5 [place] (TBX233) MULTIPACK 3DRC Cardinal 1 123654 5 5Fr catheter Health GLIDE WIRE Terumo 1 VY8003 504875 014827 345437 5 Super Stiff Angled 260cm (OV4999) MULTIPACK JL Cardinal 1 [id number] 5 4.0 5Fr Health catheter MULTIPACK Cardinal 1 938704 5 Pigtail 5 Fr Health catheter INFLATOR Merit Merit 1 PI9293 203576 809028 697324 1 5 LightArrowwyBitPoster (JG2913) CHOICE PT Loa 1 [id number] 173178 063556 596632 5 Extra Support Scientific 182cm wire ([id number]) SHEATH 6FR Terumo 1 WXW141 211614 214138 512736 4 0 [place] (CLS856) EUPHORA 3.5 x Medtronic 1 [id number] 139814 330858 550514 5 [id number] 15 Balloon ([id number]) RADHA RX 4.0 x Medtronic 1 [id number] 725422 7666269 431411 5 [id number] 12 stent ([id number]) EXOSEAL 6Fr Cardinal 1 EX600 532859 557506 595791 1 0 (EX600) Health Signature Audit [place] Stage Time Signature Unsigned Intra-Procedure 06/26/2018 Alissa Georges 11:48:05 AM RT(R) Signatures Monitor : Alissa Georges Signature : RT Date : Time : [facility] [address] [place] [address]
[2018-06-25 11:24] LABS: BASOPHILS 0.6 % (0-2); EOSINOPHILS 1.9 % (0-7); HEMATOCRIT 43.1 % (42.0-54.0); HEMOGLOBIN 14.7 g/dL (13.5-17.5); IMMATURE GRANULOCYTES 0.2 % (0-5); LYMPHOCYTES 35.2 % (15-50); MCH 30.6 pg (26.0-34.0); MCHC 34.1 g/dL (31.0-37.0); MCV 89.8 fL (80.0-100.0); MEAN PLATELET VOLUME 9.6 fL (7.4-10.4); NEUTROPHILS 49.1 % (40-80); PLATELET COUNT 220 10x3/uL (130-400); RDW 13.1 % (11.5-14.5); WBC 4.6 10x3/uL (4.8-10.8)
[2018-06-25 11:39] LABS: ALBUMIN 3.5 g/dL (3.4-5.0); ALKALINE PHOSPHATASE 148 U/L (46-116); ALT (SGPT) 27 U/L (10-68); BILIRUBIN - TOTAL 0.29 mg/dL (0.2-1.3); CALC OSMOLALITY 282 mosm/kg (275-300); CALCIUM 8.3 mg/dL (8.5-10.1); CARBON DIOXIDE 26.2 mmol/L (21.0-32.0); CHLORIDE - SERUM 106 mmol/L (98-107); GLUCOSE 105 mg/dL (74-106); POTASSIUM - SERUM 4.2 mmol/L (3.5-5.1); PROTEIN - SERUM 7.6 g/dL (6.4-8.2); SODIUM 141 mmol/L (136-145); UREA NITROGEN 18 mg/dL (7-18); eGFR NON AFRICAN AMERICAN 80 mL/min (90-120)
[2018-06-25 11:51] LABS: APTT 30.2 SECONDS (22.8-39.4); CKMB 0.7 U/L (0.0-3.6); CREATINE KINASE 131 UL (21-232); INR 1.01 (0.85-1.17); MAGNESIUM - SERUM 2.3 mg/dL (1.8-2.4); PROTIME 12.8 SECONDS (11.6-15.0)
[2018-06-25 11:52] LABS: TROPONIN-I < 0.017 ng/mL (0.000-0.060)
[2018-06-25 11:53] LABS: D-DIMER-QUANTITATIVE 1.99 ug/mLFEU (0.20-0.54)
--- NOTE | 2018-06-25 11:53 | NUR ---
CRITICAL LAB: D-DIMER 1.99. JOHNATHAN ROME. DR. HATCH NOTIFIED.
[2018-06-25 12:11] VITALS: BP 129/85
[2018-06-25 13:04] VITALS: BP 132/82
[2018-06-25 13:35] VITALS: BP 115/85
--- NOTE | 2018-06-25 14:14 | NUR ---
TRANSFER FROM ER BY W/C. PEMAINTED TO ROOM. CALL LIGHT IN REACH. WILL CONT. PLAN OF CARE.
[2018-06-25 14:29] VITALS: BP 115/85; Ht 172.7 cm; Wt 84.6 kg
[2018-06-25 16:42] VITALS: BP 93/55
[2018-06-25 17:45] LABS: CKMB 0.5 U/L (0.0-3.6); CREATINE KINASE 106 UL (21-232)
[2018-06-25 17:48] LABS: TROPONIN-I < 0.017 ng/mL (0.000-0.060)
--- NOTE | 2018-06-25 19:44 | NUR ---
REPORT RECIEVED AND INITIAL ROUNDS COMPLETED. PT RESTING IN BED. ALERT/ORIENTED SR/67 PER TELEMETRY. DENIES CHEST PAIN OR DISCOMFORT. PIV SALINE LOCKED IN LEFT A/C. WILL BE NPO AFTER MIDNIGHT FOR AM HEART CATH.
[2018-06-25 20:04] VITALS: BP 94/58
--- NOTE | 2018-06-25 21:13 | NUR ---
NO CURRENT CHEST PAIN. WILL HOLD NITRO. PT WILL NOTIFY IF HE FEELS HE NEEDS THE NITRO OINTMENT. CURRENTLY C/O MILD CRAMPING TO HIS LOWER TOES, STATES THIS HAPPENS AT HOME ALOT. REVIEWED LABS, MAG AND POTASSIUM WNL. PT STATES HE USUALLY DRINKS WATER WITH QUININE AT HOME. INSTRUCTED PT THAT MD CAN BE CALLED IF HE NEEDS ANYTHING. PT DECLINED FOR MD TO BE CALLED AT THIS TIME.
--- NOTE | 2018-06-25 23:12 | NUR ---
PT NOW SAYING HE HAS A HEADACHE AND WANTS EXISTING NITRO OINTMENT REMOVED. NITRO PASTE REMOVED. DENIES CHEST PAIN. CURRENTLY 65/SR PER TELEMETRY.
[2018-06-26 00:36] VITALS: BP 97/63
[2018-06-26 01:10] LABS: CKMB 0.7 U/L (0.0-3.6); CREATINE KINASE 101 UL (21-232); TROPONIN-I < 0.017 ng/mL (0.000-0.060)
--- NOTE | 2018-06-26 01:37 | NUR ---
RESTING WITH NO DISTRESS. NPO FOR AM HEART CATH. /81 PER TELEMETRY. CALL LIGHT IN REACH.
[2018-06-26 04:35] VITALS: BP 104/64
[2018-06-26 06:36] LABS: CKMB 0.8 U/L (0.0-3.6); CREATINE KINASE 91 UL (21-232); TROPONIN-I < 0.017 ng/mL (0.000-0.060)
[2018-06-26 09:08] LABS: BASOPHILS 0.2 % (0-2); EOSINOPHILS 2.1 % (0-7); HEMATOCRIT 40.1 % (42.0-54.0); HEMOGLOBIN 13.8 g/dL (13.5-17.5); IMMATURE GRANULOCYTES 0.5 % (0-5); LYMPHOCYTES 22.4 % (15-50); MCH 30.5 pg (26.0-34.0); MCHC 34.4 g/dL (31.0-37.0); MCV 88.5 fL (80.0-100.0); MEAN PLATELET VOLUME 9.7 fL (7.4-10.4); MONOCYTES 14.3 % (2-11); NEUTROPHILS 60.5 % (40-80); PLATELET COUNT 223 10x3/uL (130-400); RBC 4.53 10x6/uL (4.20-6.10); WBC 4.3 10x3/uL (4.8-10.8)
[2018-06-26 09:11] LABS: ANION GAP 15.1 mmol/L (8-16); CALCIUM 8.4 mg/dL (8.5-10.1); CARBON DIOXIDE 23.9 mmol/L (21.0-32.0); CREATININE - SERUM 1.1 mg/dL (0.6-1.3)
--- NOTE | 2018-06-26 11:47 | HP ---
PATIENT: CAROL RODRÍGUEZ MEDICAL RECORD: [id number] ACCOUNT: [id number] LOCATION:[address] : 51 ADMISSION DATE: 06/25/18 PCP: ARIANNA LENZ MD HISTORY AND PHYSICAL EXAMINATION DIAGNOSES: 1. Unstable angina. 2. Coronary artery disease. 3. Previous percutaneous transluminal coronary angioplasty stent. 4. Dizziness, near-syncope. 5. Chronic obstructive pulmonary disease. 6. Smoking history. HISTORY OF PRESENT ILLNESS: Mr. Rodríguez presents with chest pain in the last 3 days, escalating in an unstable fashion, shortness of breath and episodes of dizziness and near syncope. He has a history of coronary artery disease. Does not have history of carotid vascular disease that we know of. His last cardiac stents were October of last year. PHYSICAL EXAMINATION: GENERAL APPEARANCE: Well-nourished, well-developed, appears stated age. Level of distress, comfortable. PSYCHIATRIC: Mental status, alert, normal affect. Orientation, oriented to time, place and person. EYES: Lids and conjunctiva, noninjected. No discharge, no pallor. ENT: Lips, teeth, gums, normal dentition. Oropharynx, no cyanosis, no pallor. NECK: Carotid arteries, bilateral normal upstroke, no bruits, no thrills. JUGULAR VEINS: No jugular venous pressure or distention. CERVICAL LYMPH NODES: Nontender, nonenlarged. THYROID: Not enlarged. Nontender. No nodules. LUNGS: Respiratory effort, unlabored. CHEST: Normal curvature. No thoracic deformity. No chest wall tenderness. Percussion, resonant. Auscultation, clear. No wheezes, no rales, no rhonchi. CARDIOVASCULAR: Precordial exam, nondisplaced. No heaves or pericardial thrills. Rate and rhythm, regular. Heart sounds, normal S1, normal S2. No S3, no gallop, no rub. Systolic murmur, not heard. Diastolic murmur, not heard. EXTREMITIES: No cyanosis, no edema. Peripheral pulses, full and equal in all extremities, except as noted. No bruits appreciated. ABDOMEN: Soft, nondistended. Normal aorta. No bruit. Nontender. No masses. Liver, nontender, no hepatomegaly. Spleen, nontender, no splenomegaly. MUSCULOSKELETAL: No joint tenderness. No joint swelling. No erythema. NEUROLOGICAL: Normal gait, normal strength, normal tone. SKIN: Warm and dry. OVERALL IMPRESSION: Unstable angina, shortness of breath, most likely he has recurrent hemodynamically significant coronary artery disease. We will proceed with coronary angiography. Due to the dizziness and near-syncope, we will proceed with carotid vascular angiography as well. TRANSINT:[id number] Voice Confirmation ID: [id number] DOCUMENT ID: [id number] HISTORY AND PHYSICAL [id number] CAROL RODRÍGUEZ, ARMITA MARTINEZ at 1147 CC: [id number] DICTATION DATE: 06/26/18812 AUTO POLISHER: 06/26/18 0824 ADM IN [facility] [address] [id number]
--- NOTE | 2018-06-26 12:06 | NUR ---
RECEIVED CALL FROM [facility]ACH[facility] HAND PT TO BE DISCHARGED FROM [facility] HOLDING STAFF ASSISTED UP TO [facility] HAND HOLDING WITH ALL PERSONAL BELONGINGS
--- NOTE | 2018-06-26 12:44 | NUR ---
PT SLEEPING, AWAKENS EASILY TO VERBAL STIMULI. DENIES ANY C/O. SINUS SOY AT 58. RESP WITH EASE ON O2 AT 2LPM VIA NC. HOB IS FLAT. 6 FR EXOSEAL CDI TO RIGHT GROIN, AREA IS SOFT AND NONTENDER. PEDAL PULSES PALPABLE. CALL LIGHT IN REACH.
--- NOTE | 2018-06-26 13:00 | NUR ---
RESTING QUIETLY WITH EYES CLOSED. RIGHT GROIN 6F EXOSEAL CDI, NO BLEEDING OR HEMATOMA NOTED. DENIES ANY NEEDS. VSS. CALL LIGHT WITHIN REACH.
--- NOTE | 2018-06-26 13:30 | NUR ---
CONTINUES TO REST COMFORTABLY WITH NO C/O. RIGHT GROIN 6F EXOSEAL CDI, NO BLEEDING OR HEMATOMA NOTED. DENIES ANY NEEDS. VSS. WILL CONTINUE TO MONITOR.
--- NOTE | 2018-06-26 14:00 | NUR ---
RIGHT GROIN 6F EXOSEAL CDI, NO BLEEDING OR HEMATOMA NOTED. 2L NC WITH NO RESP DISTRESS. VSS. SIDE RAILS UP X2.
--- NOTE | 2018-06-26 15:00 | NUR ---
HOB ELEVATED 30 DEGREES. RIGHT GROIN 6F EXOSEAL SUMIT, NO BLEEDING OR HEMATOMA NOTED. SIPPING ON DRINK AND EATING SANDWICH WITH NO C/O NAUSEA. VSS. WILL CONTINUE TO MONITOR.
--- NOTE | 2018-06-26 15:35 | NUR ---
LEFT PIV D/C'D WITH CATHETER INTACT, BAND AID TO SITE. UP TO BEDSIDE TO GET DRESSED. AMBULATED TO RESTROOM.
--- NOTE | 2018-06-26 15:42 | NUR ---
DISCHARGE INSTRUCTIONS GIVEN TO PT AND . BOTH VERBALIZED UNDERSTANDING.
--- NOTE | 2018-06-26 15:50 | NUR ---
TAKEN OUT VIA WHEELCHAIR BY CATH VAMPER. LEFT FACILITY WITH FAMILY AND ALL PERSONAL BELONGINGS.
== END 2018-06-26 15:50 | disposition home or self-care (01) ==
LOC: D.ER 11:07 → D.EDHOLD 13:15 → OBSVTIME 13:16 → D.M2 13:22 → D.CLR 06-26 12:09
PROVIDERS: Family Medicine; ADMIT Internal Medicine Interventional Cardiology; ATTEND Internal Medicine Interventional Cardiology
DX: I25.110 Atherosclerotic heart disease of native coronary artery with unstable angina pectoris (principal); R42 Dizziness and giddiness; R55 Syncope and collapse; J44.9 Chronic obstructive pulmonary disease, unspecified; Z87.891 Personal history of nicotine dependence
CPT/HCPCS: 93458; 36222; C9600

== ENCOUNTER 2018-09-10 14:54 | Emergency (ER) | payer MEDICARE, OTHER ==
[~2018-09-10] VITALS: Ht 172.7 cm; Wt 84.1 kg
[2018-09-10 14:59] VITALS: Ht 172.7 cm; Wt 84.1 kg
[2018-09-10 15:55] LABS: BASOPHILS 0.7 % (0-2); EOSINOPHILS 1.6 % (0-7); HEMATOCRIT 37.4 % (42.0-54.0); HEMOGLOBIN 13.1 g/dL (13.5-17.5); IMMATURE GRANULOCYTES 0.4 % (0-5); LYMPHOCYTES 27.8 % (15-50); MCH 30.9 pg (26.0-34.0); MCV 88.2 fL (80.0-100.0); MEAN PLATELET VOLUME 9.6 fL (7.4-10.4); MONOCYTES 12.7 % (2-11); NEUTROPHILS 56.8 % (40-80); RBC 4.24 10x6/uL (4.20-6.10); RDW 13.1 % (11.5-14.5); WBC 4.5 10x3/uL (4.8-10.8)
[2018-09-10 16:00] LABS: PLATELET COUNT 165 10x3/uL (130-400)
[2018-09-10 16:05] LABS: APTT 27.7 SECONDS (22.8-39.4); INR 1.07 (0.85-1.17); PROTIME 13.4 SECONDS (11.6-15.0)
[2018-09-10 16:14] LABS: ALBUMIN 3.2 g/dL (3.4-5.0); ALKALINE PHOSPHATASE 132 U/L (46-116); ALT (SGPT) 30 U/L (10-68); BILIRUBIN - TOTAL 0.15 mg/dL (0.2-1.3); CALC OSMOLALITY 285 mosm/kg (275-300); CALCIUM 8.6 mg/dL (8.5-10.1); CARBON DIOXIDE 25.7 mmol/L (21.0-32.0); CHLORIDE - SERUM 108 mmol/L (98-107); GLUCOSE 111 mg/dL (74-106); POTASSIUM - SERUM 3.8 mmol/L (3.5-5.1); PROTEIN - SERUM 6.7 g/dL (6.4-8.2); SODIUM 142 mmol/L (136-145); UREA NITROGEN 18 mg/dL (7-18); eGFR NON AFRICAN AMERICAN 80 mL/min (90-120)
[2018-09-10 16:27] LABS: CKMB 1.2 U/L (0.0-3.6); CREATINE KINASE 142 UL (21-232); MAGNESIUM - SERUM 2.1 mg/dL (1.8-2.4)
[2018-09-10 16:37] LABS: TROPONIN-I < 0.017 ng/mL (0.000-0.060)
[2018-09-10 18:14] VITALS: BP 124/79
== END 2018-09-10 18:15 | disposition home or self-care (01) ==
LOC: D.ER 14:54
PROVIDERS: Family Medicine
DX: R07.9 Chest pain, unspecified (principal); I25.10 Atherosclerotic heart disease of native coronary artery without angina pectoris

== ENCOUNTER → 2019-02-21 10:31 | Outpatient (CLI) | payer MEDICARE, OTHER ==
[2018-09-10 14:59] VITALS: BMI 28.1
== END | disposition home or self-care (01) ==
LOC: D.RT 01-25 10:00 → D.RAD 01-25 10:15 → D.RT 10:31
PROVIDERS: ATTEND Internal Medicine Pulmonary Disease
DX: J44.9 Chronic obstructive pulmonary disease, unspecified (principal)

== ENCOUNTER 2019-03-25 14:18 | Outpatient (CLI) | payer MEDICARE, OTHER ==
[~2019-03-25] VITALS: Ht 172.7 cm; Wt 89.1 kg
--- NOTE | ~2019-03-25 | OP ---
PATIENT NAME: CAROL RODRÍGUEZ MEDICAL RECORD: [id number] :51 LOCATION:D.M2 D.2137 ADMISSION DATE:03/25/19 SURGEON: AMRITA MIRANDA MD DATE OF OPERATION: 03/26/2019 PROCEDURES: 1. PTCA stent left circumflex. 2. Left heart catheterization. 3. Selective coronary angiography. 4. Left ventriculogram. INDICATION: Unstable angina and coronary artery disease. PROCEDURE IN DETAIL: After informed consent was obtained and after a detailed description of risks, benefits as well as alternative therapies, the patient elected to proceed with angiogram and angioplasty. The right radial area was prepped and draped in normal sterile fashion. Right radial artery was cannulated via modified Seldinger technique with placement of 6-Greek sheath. All catheters exchanged through this sheath. FINDINGS: Left ventriculogram performed in standard 30-degree ASHLEY view, reveals good cardiac wall motion, ejection fraction estimated at 60%. SELECTIVE CORONARY ANGIOGRAPHY: 1. Left main is with no significant angiographic disease. 2. Left anterior descending has previously placed stents, these are widely patent. 3. Left circumflex has 90% stenosis in the first obtuse marginal. 4. Right coronary has previously placed stent. This is widely patent with no significant disease elsewise. PTCA STENT OF THE CIRCUMFLEX OBTUSE MARGINAL: The stent used was a 3.0 x 12 mm Jass. Result was 0% residual stenosis. OVERALL IMPRESSION: Successful percutaneous transluminal coronary angioplasty stent of the left circumflex first obtuse marginal going from 90% initial stenosis to 0% residual. TRANSINT:[id number] Voice Confirmation ID: [id number] DOCUMENT ID: [id number] AMRITA MIRANDA MD CC: [id number] DICTATION DATE: 03/26/19904 PHOTOGRAPHER LITHOGRAPHIC: 03/26/19 1126 ADM IN [id number] [place] [address]
--- NOTE | ~2019-03-25 | EC ---
PATIENT:CAROL RODRÍGUEZ DATE OF SERVICE: 03/25/19 SEX: M MEDICAL RECORD: [id number] DATE OF : 51 LOCATION:D.M2 D.213 AGE OF PATIENT: 64 ADMISSION DATE: 03/25/19 REFERRING PHYSICIAN: INTERPRETING PHYSICIAN: AMRITA NAVARRO MD ECHOCARDIOGRAM REPORT ECHO CHARGES 4 ECHO COMPLETE Date: 03/26/19 CLINICAL DIAGNOSIS: PERICARDIAL EFFUSION, CP ECHOCARDIOGRAPHIC MEASUREMENTS (adult normal given) AC root (d.<3.7cm) 2.8 cm LV Septum d (<1.2 cm> 1.3 cm Valve Excursion 1.9 cm LV Septum (systole) 1.4 cm Left Atria (s.<4.0cm> 3.9 cm LVPW d(<1.2cm) 0.8 cm RV (d.<2.3cm) 3.3 cm LVPW (sytole) 0.9 cm LV diastole(<5.6CM) 5.1 cm MV E-F(>70mm/sec) cm LV systole 4.5 cm LVOT Diameter 2.2 cm MV exc.(>10mm) cm Est.ejection fraction (50-75%) % DOPPLER: LVIT cm/sec A 52 cm/sec E 49 cm/sec LA cm/sec RVSP 15.3 mmHg LVOT 86 cm/sec AOP1/2T m/s Asc. Ao 128 cm/sec RVOT 71 cm/sec RA cm/sec PA 77 cm/sec AV Gradient Peak 6.6 mmHg AV Mean 3.1 mmHg AV Area 2.8 cm MV Gradient Peak 2.0 mmHg MV Mean 0.8 mmHg MV Area cm COMMENTS: Potato Picker: Jayde [facility] Truck Operator: 1 Dr. Navarro TAPE# PACS Pericardial Effusion Y DATE OF SERVICE: ECHOCARDIOGRAM FINDINGS: 1. Left ventricular chamber size is within normal limits. Left ventricular systolic function is normal. Overall ejection fraction estimated at 60%. 2. Left atrium, right atrium, and right ventricle chamber size is within normal limits. 3. Valvular structures have normal structure and motion. ECHOCARDIOGRAM REPORT [id number] CAROL RODRÍGUEZ 4. Doppler interrogation reveals no significant valvular insufficiency or stenosis and pulmonary systolic pressure estimated 15 mmHg. 5. Trace pericardial effusion is present. This is not hemodynamically significant. No evidence of left ventricular thrombus. 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
--- NOTE | ~2019-03-25 | HEMODYNAMI ---
PATIENT:CAROL RODRÍGUEZ MEDICAL RECORD: [id number] : 51 LOCATION:[facility] D.2137 ADMISSION DATE: 03/25/19 Generatedon:03/26/20199:11 Patient name: CAROL RODRÍGUEZ Patient #: [id number] SSN: [id number] : 1955 Date of study: 03/26/2019 Page: Of Hemodynamic Procedure Report Patient Data Patient Demographics Procedure consent was obtained First Name: CAROL Gender: Male Last Name: ANNE : 1955 Middle Initial: EDWARD Age: 64 year(s) Patient #: [id number] Race: SSN: [id number] Additional ID: [id number] Contact details [address]: [address] [place] [address] State: [place] City: [place] Zip code: [address] Past Medical History Allergies Allergen Reaction Date Comments Reported Penicillins 12/25/2014 Penicillins 11/13/2017 Other allergy 06/26/2018 PCN Other allergy 03/26/2019 PCN Admission Admission Data Admission Date: 03/25/2019 Admission Time: 14:42 Arrival Date: 03/26/2019 Arrival Time: 0:00 Admit Source: Emergency Insurance Payor: Medicare department [facility] #: [id number] Room #: D2137 Height (in.): 68 BSA: 2.03 (m2) Height (cm.): 172.72 BMI: 29.8 (kg/m2) Weight (lbs.): 196 Weight (kg.): 88.9 Lab Results Lab Result Date: 03/26/2019 Lab Result Time: 0:00 Biochemistry Name Units Result Min Max BUN mg/dl 15 --(--*-)-- 7 18 CK-MB ng/ml 0.7 --(*---)-- 0 3.6 Creatinine mg/dl 1 --(--*-)-- 0.6 1.3 eGFR ml/min 79.48790 *-(----)-- 90 120 AM Troponin l ng/ml 0.017 --(-*--)-- 0 0.06 CBC Name Units Result Min Max Hematocrit % 39 *-(----)-- 42 54 Hemoglobin g/dl 13.4 -*(----)-- 13.5 17.5 Procedure Procedure Types Cath Procedure Diagnostic Procedure [facility] w/Coronaries Sedation Charges Moderate Sedation up to 15 minutes PCI Procedure Coronary Stent Coronary Stent Initial Hemochron ACT Test Procedure Description Procedure Date Procedure Date: 03/26/2019 Procedure Start Time: 8:49 Procedure End Time: 9:07 Procedure Staff Name Function Robby Navarro MD Performing Physician Lizandro Lundy RT Monitor Nati Tovar RN Nurse Jackie Freeman RT Scrub Procedure Data Cath Procedure Fluoroscopy Diagnostic fluoroscopy Total fluoroscopy Time: 4.2 time: 4.2 min min Diagnostic fluoroscopy Total fluoroscopy dose: 698 dose: 698 mGy mGy Contrast Material Contrast Material Type Amount (ml) Isovue 370 92 Entry Location Entry Primary Successful Side Size Upsize Upsize Entry Closure Morgan ccessful Closure Location (Fr) 1 (Fr) 2 (Fr) Remarks Device Remarks Radial Right 6 Fr Mechanical artery Short Compression Estimated blood loss: 10 ml Diagnostic catheters Device Type Used For End Catheter Placement DIAGNOSTIC Agency 110cm 5 Procedure Fr catheter ([id number]) Procedure Complications No complications Procedure Medications Medication Administration Route Dosage Oxygen etCO2 Nasal cannula 2 l/min Lidocaine 2% added to field 20 Heparin Flush Bag added to field 2 bags (1000units/500ml NS) 0.9% NaCl I.V. 100 ml/hr Dobutamine I.V. drip 5 mcg/kg/min (500mg/250ml D5W) Radial Cocktail added to field 1 syringe (Verapamil 2mg/Nitro 400mcg/Heparin 1500units) Versed I.V. 1 mg Fentanyl I.V. 50 mcg Versed I.V. 1 mg Fentanyl I.V. 50 mcg Fentanyl I.V. 50 mcg Heparin Bolus I.V. 4000 units Plavix P.O. 75 mg Hemodynamics Rest BSA: 2.03 (m2) HGB: 13.4 (g/dl) O2 Consumption: Estimated: 230.2 (ml/min) O2 Con sumption indexed: Estimated:113.4 (ml/min/m) Heart Rate: 62 (bpm) Snapshots Pre Cath Intra NCS Post Cath Vital Signs Time Heart Resp SPO2 etCO2 NIBP (mmHg) Rhythm Pain Sedation Rate (ipm) (%) (mmHg) Status Level (bpm) 8:30:39 57 20 100 25.4 No Cuff NSR 0 (11) 10(A) , No pain 8:33:13 66 13 96 19.4 152/83(123) NSR 0 (11) 10(A) , No pain 8:37:25 61 10 95 17.2 133/82(110) NSR 0 (11) 10(A) , No pain 8:41:41 63 11 95 16.4 124/71(91) NSR 0 (11) 10(A) , No pain 8:45:54 63 11 95 0 130/69(112) NSR 0 (11) 10(A) , No pain 8:50:04 62 11 94 34.4 121/77(100) NSR 0 (11) 10(A) , No pain 8:54:04 74 12 93 0 92/73(87) NSR 0 (11) 9(A) , No pain 8:58:59 71 12 93 0 116/76(112) NSR 0 (11) 9(A) , No pain 9:03:09 69 11 93 0 117/73(89) NSR 0 (11) 10(A) , No pain Medications Time Medication Route Dose Verified Delivered Reason N otes Effectiveness by by 8:30:15 Oxygen etCO2 2 l/min Robby Damian used for Nasal Melanie Tovar RN procedure cannula 8:30:22 Lidocaine 2% added 20ml vial Robby Damian used for to Melanie Tovar RN procedure field 8:30:29 Heparin Flush added 2 bags Robby Damian used for Bag to Melanie Tovar RN procedure (1000units/500ml field NS) 8:31:02 Dobutamine I.V. 5 Robby Damian Per physician c ontinued (500mg/250ml drip mcg/kg/min Melanie Tovar RN via smart D5W) pump from [employer]. 8:31:02 0.9% NaCl I.V. 100 ml/hr Robby Damian Per physician Melanie Tovar RN 8:33:03 Radial Cocktail added 1 syringe Robby Bustamante for (Verapamil to Melanie Navarro MD vasodilation 2mg/Nitro field 400mcg/Heparin 1500units) 8:46:49 Versed I.V. 1 mg Robby Damian for sedation Melanie Tovar RN 8:46:57 Fentanyl I.V. 50 mcg Robby Damian for sedation Melanie Tovar RN 8:51:25 Versed I.V. 1 mg Robby Randhawaie for sedation Melanie Tovar RN 8:51:29 Fentanyl I.V. 50 mcg Robby Damian for sedation Melanie Tovar RN 8:55:23 Fentanyl I.V. 50 mcg Robby Randhawaie for sedation Melanie Tovar RN 8:57:28 Heparin Bolus I.V. 4000 units Robby Damian for v erified Melanie Tovar RN anticoagulation with dr navarro 9:04:24 Plavix P.O. 75 mg Robby Damian for Melanie Tovar RN antiplatelet therapy Procedure Log Time Note 7:54:52 Informed consent obtained and on chart 7:57:13 Arrival Date: 03/26/2019 12:00:00 AM 7:57:42 Insurance Payor : Medicare 7:57:46 Admit Source: Emergency department 7:58:16 Patient Height : 68 inches 7:58:24 Patient Weight : 196 lbs 7:59:34 Diagnostic Cath Status : Urgent 8:00:27 Nati Tovar RN sent for patient. Start room use. 8:01:26 Lab Result : CK-MB 0.7 ng/ml 8::26 Lab Result : Creatinine 1 mg/dl 8:01:26 Lab Result : BUN 15 mg/dl 8:01:26 Lab Result : Hematocrit 39 % 8:01:26 Lab Result : eGFR AM 79.19688 ml/min 8:01:26 Lab Result : Troponin l 0.017 ng/ml 8:01:26 Lab Result : Hemoglobin 13.4 g/dl 8:01:49 ACC Patient presents with Unstable Angina CCS Anginal Class 4--Inability to carry out any physical activity w/o angina. Angina may occur at rest. 8:02:17 ACCPatient has been prescribed/administered the following anti-anginal medication within the last 2 weeks: Beta Nahum, Long-Acting Nitrates 8:02:23 Procedure Status Urgent Heart Cath (IP). 8:02:32 Time tracking: Regular hours (M-F 7:00 - 5:00) 8:02:40 Plan of Care:Hemodynamics will remain stable., Cardiac rhythm will remain stable., Comfort level will be maintained., Respiratory function will remain adequate., Patient/ family verbilizes understanding of procedure., Procedure tolerated without complication., Recovers from procedure without complications.. 8:03:05 Patient allergic to Other allergyPCN 8:06:30 Risk of Mortality: 1.3 8:06:36 Risk of blood transfusion: .1 8:06:41 Risk of JU: 0.4 8:06:48 Lab results completed and on chart. 8:14:08 Patient received from Med II to CCL 1 Alert and oriented. Tansferred to table in Supine position. 8:29:49 Vital chart was started 8:30:15 Oxygen 2 l/min etCO2 Nasal cannula was administered by Nati Tovar RN; used for procedure; Verbal order read back and verified. 8:30:22 Lidocaine 2% 20ml vial added to field was administered by Nati Tovar RN; used for procedure; Verbal order read back and verified. 8:30:29 Heparin Flush Bag (1000units/500ml NS) 2 bags added to field was administered by Nati Tovar RN; used for procedure; Verbal order read back and verified. 8:31:02 Dobutamine (500mg/250ml D5W) 5 mcg/kg/min I.V. drip was administered by Nati Tovar RN; Per physician; continued via smart pump from med floor. Verbal order read back and verified. 8:31:02 0.9% NaCl 100 ml/hr I.V. was administered by Nati Tovar RN; Per physician; Verbal order read back and verified. 8:31:59 Warm blankets applied, and noemi hugger turned on for patient comfort. 8:32:01 Correct patient and procedure confirmed by team. 8:32:02 ECG and BP/O2 sat monitors applied to patient. 8:32:03 Baseline sample Acquired. 8:33:03 Radial Cocktail (Verapamil 2mg/Nitro 400mcg/Heparin 1500units) 1 syringe added to field was administered by Robby Navarro MD; for vasodilation; Verbal order read back and verified. 8:33:09 Rhythm: sinus rhythm 8:33:13 Full Disclosure recording started 8:33:21 H&P Date Dictated: 03/25/2019 Within 30 days and on chart.. 8:33:21 Pre-procedure instructions explained to patient. 8:33:22 Pre-op teaching completed and patient verbalized understanding. 8:33:24 Family in patients room. 8:33:27 Patient NPO since Midnight. 8:33:29 Is the patient allergic to Iodine/contrast media? No. 8:33:32 Is patient on blood thinner?Yes 8:33:34 ACC The patient was administered the following blood thiners within the last 24 hours: ACCPlavix 8:33:37 Patient diabetic? No. 8:33:41 Previous problem with sedation/anesthesia? No ? 8:33:41 Snore? Yes 8:33:42 Sleep apnea? Yes 8:33:44 Deviated septum? No 8:33:44 Opens mouth fully? Yes 8:33:45 Sticks out tongue? Yes 8:33:49 Airway obstruction? Yes COPD 8:34:00 Dentures? Yes TOP IN, BOTTOM OUT 8:34:04 Pre procedure: right dorsailis pedis pulse 1+ Palpable, but thready & weak; easily obliterated 8:34:07 Modified Kolton's test Ulnar < 7 seconds 8:34:09 Patient pain scale 0/10 ?. 8:34:39 IV patent on arrival in left forearm with 0.9% NaCl at O. 8:34:45 Right Radial & Right Groin area was prepped with chlora-prep and draped in sterile fashion 8:34:46 Alarms reviewed by R. N. 8:34:47 Sharps counted by scrub and verified by R.N. 8:37:51 Physician paged 8:39:11 Zero performed for pressure channel P1 8:45:41 Physician arrived 8:45:41 --------ALL STOP TIME OUT------ 8:45:42 Final Timeout: patient, procedure, and site verified with staff and physician. All members of the team are in agreement. 8:45:46 Right Radial & Right Groin site verified by team. 8:45:50 Fire Safety Assessment: A--An alcohol-based skin anteseptic being used preoperatively., C--Open oxygen or nitrous oxide is being used., D--An ESU, laser, or fiber-optic light is being used. 8:45:53 Physical assessment completed. ASA score P 2 - A patient with mild systemic disease as per Robby Navarro MD. 8:46:02 2) 60-89 Mildly reduced kidney function, and other findings (as for stage 1) point to kidney disease. 8:46:10 Maximum allowable contrast dose (3.7 X eGFR X 0.75)219 ml. 8:46:26 Sedation plan: IV Moderate Sedation Medication:Versed, Fentanyl 8:46:49 Versed 1 mg I.V. was administered by Nati Tovar RN; for sedation; Verbal order read back and verified. 8:46:57 Fentanyl 50 mcg I.V. was administered by Nati Tovar RN; for sedation; Verbal order read back and verified. 8:47:42 Use device set Radial Dx or PCI 8:47:43 Tegaderm 4 x 4 (1626W) opened to sterile field. 8:47:45 ACIST Syringe (09102) opened to sterile field. 8:47:45 Medline Cath Pack ([id number]) opened to sterile field. 8:47:46 Bag Decanter (2002S) opened to sterile field. 8:47:46 ACIST Hand Control (71418) opened to sterile field. 8:47:47 ACIST Manifold (02352) opened to sterile field. 8:47:48 MBrace Wrist Support ([id number]) opened to sterile field. 8:47:49 EMERALD Guide Wire (026-853) opened to sterile field. 8:47:53 SHEATH 6FR RAIN (2978507) opened to sterile field. 8:49:32 Procedure started. 8:49:37 Local anesthetic to right radial artery with Lidocaine 2% by Robby Navarro MD.INITIAL ACCESS ONLY 8:50:05 A 6 Fr Short sheath was inserted into the Right Radial artery 8:50:49 A DIAGNOSTIC Agency 110cm 5 Fr catheter (561192) was advanced over the wire and used for Procedure. 8:51:25 Versed 1 mg I.V. was administered by Nati Tovar RN; for sedation; Verbal order read back and verified. 8:51:29 Fentanyl 50 mcg I.V. was administered by Nati Tovar RN; for sedation; Verbal order read back and verified. 8:53:07 LV angiography performed. 8:53:09 LV gram done using ASHLEY 8:53:16 EF : 55 % 8:53:21 Injector settings: Ml/sec: 5, Volume: 15, 8:53:41 LCA angiography performed. 8:54:29 ACCDominant side:Left 8:54:49 RCA angiography performed. 8:54:51 Catheter exchanged over wire. 8:55:02 Use device set MELANIE PCI 8:55:12 CHOICE PT Extra Support 182cm wire ([id number]) opened to sterile field. 8:55:17 INFLATOR Merit BasixCompak (DK7506) opened to sterile field. 8:55:23 Fentanyl 50 mcg I.V. was administered by Nati Tovar RN; for sedation; Verbal order read back and verified. 8:55:49 6 Fr EBU 3.5 guide catheter was inserted over the wire 8:56:35 GUIDE 6FR EBU 3.5 catheter ([id number]) opened to sterile field. 8:56:36 GUIDE 6FR EBU 4.0 guide catheter ([id number]) opened to sterile field. 8:56:47 Guide Catheter removed. unable to cannulate vessel. 8:56:52 6 Fr EBU 4 guide catheter was inserted over the wire 8:57:08 Pre PCI Site: [place] OM1 has 90% stenosis. 8:57:12 ACC Pre-intervention PERRY Flow is 3. 8:57:28 Heparin Bolus 4000 units I.V. was administered by Nati Tovar RN; for anticoagulation; verified with dr navarro Verbal order read back and verified. 8:58:29 CPTXS wire advanced. 8:59:09 Wire advanced across lesion. 9:01:17 Place stent Inflation Number: 1 A RADHA RX 3.0 x 12 stent ([id number]) was prepped and advanced across the 1st Ob Alysa 90. The stent was deployed at 13 ERVIN for 0:10 (min:sec) 0. 9:01:52 Stent catheter was removed intact over wire. 9:01:53 Wire removed. 9:01:54 Guide catheter removed. 9:01:56 ACC Post-intervention PERRY Flow is 3. 9:02:20 Post PCI Site: [place] OM1 has 0% stenosis. 9:02:33 ZEPHYR REGULAR TR BAND (906526) opened to sterile field. 9:02:52 Sheath removed intact; hemostasis achieved with Mechanical Compression to the Right Radial artery. 9:02:55 Procedure ended.(Physican Out) 9:03:07 Fluoroscopy time 04.20 minutes. 9:03:10 Flurop Dose total: 698 9:03:10 Fluoroscopy dose: 698 mGy 9:03:31 Dose Area Product 69004 mGy/cm. 9:03:35 Contrast amount:Isovue 370 92ml. 9:03:41 Maximum allowable dose exceeded? No. 9:03:42 Sharps counted by scrub and verified by R.N. 9:03:45 [place] band inflated with 10cc of air. 9:03:46 Insertion/operative site no bleeding no hematoma. 9:03:48 Post Procedure Pulses reassessed and unchanged 9:03:51 Post-procedure physical assessment completed. ASA score P 2 - A patient with mild systemic disease as per Robby Navarro MD. 9:03:54 Post procedure rhythm: unchanged. 9:03:57 Estimated blood loss: 10 ml 9:03:59 Post procedure instruction explained to patient.Patient verbalizes understanding. 9:04:00 Patient needs reinforcement of post procedure teaching. 9:04:21 Procedure type changed to Cath procedure, Diagnostic procedure, LHC, [facility] w/Coronaries, Sedation Charges, Moderate Sedation up to 15 minutes, PCI procedure, Coronary Stent, Coronary Stent Initial, Hemochron ACT Test 9:04:22 Procedure and supply charges have been captured, reviewed, submitted and are correct. 9:04:24 Plavix 75 mg P.O. was administered by Nati Tovar RN; for antiplatelet therapy; Verbal order read back and verified. 9:04:27 Procedure Complication : No complications 9:04:59 Vital chart was stopped 9:05:01 [facility] Findings: MVD- PCI performed (see procedure note) 9:07:19 ACT drawn and resulted at 285 seconds. (normal therapeutic range 180-240 seconds). 9:07:29 Operative report dictated upon procedure completion. 9:07:29 See physician's report for complete and final results. 9:07:32 Report given to PCU. 9:07:35 Patient transfered to PCU with Bed. 9:07:38 Procedure ended. 9:07:38 Full Disclosure recording stopped 9:08:54 End room use (Document Last) 9:09:05 End room use (Document Last) 9:10:52 End room use (Document Last) Intervention Summary Intervention Notes Time ActionType Lesion and Equipment Used Action# Pressure Duration Attributes 9:01:[address] stent 1st Ob Alysa RADHA RX 3.0 x 1 13 00:10 12 stent ([id number]) Device Usage Item Name Manufacture Quantity Catalog Number Hospital Part Current M inimal Lot# / Charge Number Stock Stock Serial# Code Tegaderm 4 x 4 3M 1 1626W 557189 379476 234721 5 (1626W) ACIST Syringe Acist 1 15391 512359 959744 879439 2 0 (91040) Medical Systems Inc Medline Cath Medline 1 [id number] 372088 56269 636025 5 Pack ([id number]) Bag Decanter Microtek 1 2002S 580685 13593 383130 5 (2001S) Medical Inc. ACIST Hand Acist 1 75113 611351 273964 992715 5 Control Medical (51091) Systems Inc ACIST Manifold Acist 1 31404 543671 543377 122510 5 (60890) Medical Systems Inc MBrace Wrist Advanced 1 140-0250-00 510813 63290 988606 5 Support Vascular (914909812) Dynamics EMERALD Guide Cardinal 1 502-455 901351 915581 677301 5 Wire (502-455) Health SHEATH 6FR Cardinal 1 2036866 992613 4330070 055000 5 RAIN (6851403) Health DIAGNOSTIC Terumo 1 40-0430 306097 988922 083058 5 Agency 110cm 5 Fr catheter (569393) CHOICE PT [place] 1 [id number] 281320 760586 699689 5 Extra Support Scientific 182cm wire (5627699G6) INFLATOR Merit Merit 1 VD6021 144380 634767 510758 1 5 [employer] (BV6914) GUIDE 6FR EBU Medtronic 1 [id number] 056470 58046 214925 3 3.5 catheter (IX6OYT14) GUIDE 6FR EBU Medtronic 1 LV4NYP23 873562 35798 483603 1 4.0 guide catheter (QU6BHI24) RADHA RX 3.0 x Medtronic 1 [id number] 559571 9400181 081092 5 [id number] 12 stent ([id number]) ZEPHYR REGULAR Cardinal 1 081187 759135 9589239 525262 5 [facility] (660637) Signature Audit [place] Stage Time Signature Unsigned Intra-Procedure 03/26/2019 Lizandro Lundy 9:09:05 AM RT(R) Intra-Procedure 03/26/2019 Nati Tovar RN 9:10:52 AM Intra-Procedure 03/26/2019 Robby Navarro 9:11:49 AM [place] [id number] [place] [address]
--- NOTE | ~2019-03-25 | DS ---
PATIENT:CAROL RODRÍGUEZ :51 MEDICAL RECORD: [id number] DISCHARGE SUMMARY ADMISSION DATE: 03/25/19 DISCHARGE DATE: 03/26/19 DIAGNOSES: 1. Unstable angina. 2. Coronary artery disease. 3. Percutaneous transluminal coronary angioplasty stent of left circumflex this admission. 4. Chronic obstructive pulmonary disease. 5. Smoking history. 6. Hyperlipidemia. HOSPITAL COURSE: Mr. Rodríguez presents with unstable anginal symptomatology, found to have significant disease of circumflex, underwent successful PTCA stent of the circumflex, had no further anginal symptomatology. Discharged home with the addition of Plavix to his medical regimen. He will follow up with [facility] in 1 month. 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
--- NOTE | 2019-03-25 14:54 | NUR ---
DR. MIRANDA IN TO SEE PT.
[2019-03-25 15:20] LABS: BASOPHILS 0.5 % (0-2); EOSINOPHILS 2.3 % (0-7); HEMOGLOBIN 13.4 g/dL (13.5-17.5); IMMATURE GRANULOCYTES 0.5 % (0-5); LYMPHOCYTES 29.3 % (15-50); MCH 31.8 pg (26.0-34.0); MCHC 34.4 g/dL (31.0-37.0); MCV 92.4 fL (80.0-100.0); MEAN PLATELET VOLUME 9.2 fL (7.4-10.4); MONOCYTES 11.9 % (2-11); NEUTROPHILS 55.5 % (40-80); RBC 4.22 10x6/uL (4.20-6.10); RDW 12.7 % (11.5-14.5); WBC 4.3 10x3/uL (4.8-10.8)
[2019-03-25 15:21] LABS: PLATELET COUNT 203 10x3/uL (130-400)
[2019-03-25 15:29] LABS: APTT 27.7 SECONDS (22.8-39.4); CALC OSMOLALITY 279 mosm/kg (275-300); CALCIUM 8.5 mg/dL (8.5-10.1); CHLORIDE - SERUM 106 mmol/L (98-107); GLUCOSE 96 mg/dL (74-106); INR 1.01 (0.85-1.17); PROTIME 12.8 SECONDS (11.6-15.0); SODIUM 140 mmol/L (136-145); UREA NITROGEN 15 mg/dL (7-18); eGFR NON AFRICAN AMERICAN 79 mL/min (90-120)
[2019-03-25 15:44] LABS: ALBUMIN 3.4 g/dL (3.4-5.0); ALKALINE PHOSPHATASE 119 U/L (46-116); ALT (SGPT) 28 U/L (10-68); BILIRUBIN - TOTAL 0.38 mg/dL (0.2-1.3); CKMB 1.5 U/L (0.0-3.6); CREATINE KINASE 134 UL (21-232); PROTEIN - SERUM 6.7 g/dL (6.4-8.2)
[2019-03-25 15:45] LABS: TROPONIN-I < 0.017 ng/mL (0.000-0.060)
[2019-03-25 16:01] VITALS: BP 110/70; Ht 172.7 cm; Wt 89.1 kg
[2019-03-25 16:06] VITALS: BP 110/70
[2019-03-25] MEDS ORDERED: RANEXA1000 MG PO (16:07)
[2019-03-25] MEDS ORDERED: LIPITOR20 MG PO (16:08)
--- NOTE | 2019-03-25 16:13 | NUR ---
PT ALERT AND ORIENTED, UP WITHOUT ASSIST. AT BEDSIDE. PLEASANT DEMENOR. NO COMPLAINTS OR CONCERNS STATED AT THIS TIME. 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 AL QUESTIONS ANSWERED TO THE BEST OF MY ABILITY. CL IN REACH, SRX2.
--- NOTE | 2019-03-25 18:33 | NUR ---
PT AWAKE AND ORIENTED, AT BEDSIDE. PT STATES THAT HE ORDERED PIZZA. ADVISED AGAISNT BUT IT WAS ALREADY IN THE ROOM. NO COMPLAITNS/CONCERNS, ALL QUESTIONS ANSWERED TO THE BEST OF MY ABILITY. CL IN REACH, SRX2.
--- NOTE | 2019-03-25 19:24 | NUR ---
IN THE MIDDLE OF GIVING REPORT, PTS CAME TO THE DESK PANICING STATING PT WAS HAVING DIFFICULTY BREATHING AND CHEST PAIN. WENT WITH NIGHT RN TO CHECK ON PT, PT WAS CLAMY TO TOUCH, PAKLE AND HAVING DIFFICULTY BREATHING. BLOOD PREASURE WAS LOW, CALLED RAPID RESPONSE. ICU ADVERTISING CLERK RN TOOK OVER, ASSITED.
--- NOTE | 2019-03-25 20:06 | NUR ---
DOBUTREX INITIATED AT 5MCG/KG/MIN(13.4CC) TO LAC PER ORDERS. MED RATIONALE AND COMMON SIDE AFFECTS EXPLAINED TO PT AND . SB PER CM HR 52.
[2019-03-25 20:24] LABS: CREATINE KINASE 116 UL (21-232)
[2019-03-25 20:31] LABS: TROPONIN-I < 0.017 ng/mL (0.000-0.060)
[2019-03-25 20:45] VITALS: BP 97/56
--- NOTE | 2019-03-25 21:18 | NUR ---
PT IS RESTING IN BED WITH EYES OPEN. ALERT AND ORIENTED X 3. DENIES ANY PAIN OR DISCOMFORT AT THIS TIME, AND VOICES HE HAS HAD NO CHEST PAIN SINCE HIS EPISODE AT CHANGE OF SHIFT. DOBUTAMINE DRIP INFUSING PER ORDERS. VSS. CONSENTS FOR HEART CATH SIGNED. SPOUSE IS AT BEDSIDE. SR'S ARE UP X 2 IN BED. CALL LIGHT AND BEDSIDE TABLE ARE WITHIN EASY REACH.
--- NOTE | 2019-03-25 23:55 | NUR ---
PT IS RESTING QUIETLY IN BED WITH EYES CLOSED. RESPS ARE EVEN AND UNLABORED. NO ACUTE DISTRESS NOTED.
[2019-03-26 00:15] VITALS: BP 98/54
--- NOTE | 2019-03-26 03:28 | NUR ---
PT RESTING IN BED WITH EYES CLOSED. RESPS ARE EVEN AND UNLABORED. NO ACUTE DISTRESS NOTED.
[2019-03-26 04:18] VITALS: BP 119/64
[2019-03-26 07:08] LABS: CKMB 0.7 U/L (0.0-3.6); CREATINE KINASE 102 UL (21-232)
[2019-03-26 07:09] LABS: TROPONIN-I < 0.017 ng/mL (0.000-0.060)
[2019-03-26 08:39] VITALS: BP 128/57
--- NOTE | 2019-03-26 09:15 | NUR ---
RECIEVED REPORT FROM [facility]. D/C DOBUTAMIN, THEY GAVE PLAVIX. PT GOT ONE STINT TO THE OA. HOW B/P DOES POST CATH DETERMINES D/C POSSIBILITY. AT BEDSIDE, PT NOT BACK IN ROOM YET.
--- NOTE | 2019-03-26 09:30 | NUR ---
PT BACK IN ROOM, AT BEDSIDE. ALERT AND ORIENTED, NO COMPLAITNS/CONCERNS. WILL GIVE MEDS ACCORDINGLY. CL IN REACH, SRX2
--- NOTE | 2019-03-26 09:57 | NUR ---
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 NO COMPLAINTS OR CONCERNS. PREFORMING PULSE CHECKS. CL IN REACH, SRX2.
[2019-03-26 12:09] VITALS: BP 101/68
--- NOTE | 2019-03-26 15:06 | NUR ---
BEGAN REMOVING AIR FROM ZEFFER BAND 1 HR AGO, PT TOLERATING WELL. NO BLEEDING AT SITE. PTS B/P HOLDING STEADY, STILL LOW 100S/60S BUT BETTER THAN PREVIOUS NIGHT. CL INR EACH, SRX2. REPORTS NO PAIN/COMPLICATIONS.
--- NOTE | 2019-03-26 17:48 | HP ---
PATIENT: CAROL RODRÍGUEZ MEDICAL RECORD: [id number] ACCOUNT: [id number] LOCATION:[address] : 51 ADMISSION DATE: 03/25/19 PCP: ARIANNA LENZ MD HISTORY AND PHYSICAL EXAMINATION DATE OF SERVICE: 03/25/2019 ADMITTING DIAGNOSES: 1. Unstable angina. 2. Coronary artery disease. 3. Previous multivessel percutaneous transluminal coronary angioplasty stent. 4. Hypertension. 5. Hyperlipidemia. 6. Smoking. 7. Family history of premature coronary artery disease. HISTORY OF PRESENT ILLNESS: Mr. Rodríguez has had 2 days of class IV anginal symptomatology just like that of his previous angina. Last cardiac intervention was 07/14. This is associated with a sharp as well as a pressure-like sensation radiating down his left arm and to his back just like that of his previous angina associated with significant shortness of breath as well. His EKG is with no acute ST-T abnormalities. He continues to have the discomfort at 6/10. PHYSICAL EXAMINATION: CONSTITUTIONAL/GENERAL APPEARANCE: Well nourished, well developed, appears stated age. EYES: Lids and conjunctivae noninjected. No discharge. No pallor. ENT: Lips within normal limit. No cyanosis. No pallor. NECK: Carotid arteries, bilateral normal upstroke. No bruits. No thrills. No jugular venous pressure or distention. CERVICAL LYMPH NODES: Nontender. Nonenlarged. THYROID: Not enlarged. No nodules. CARDIOVASCULAR: Precordial exam, nondisplaced. No heaves or pericardial thrills. Rate and rhythm, regular. Heart sounds, normal S1, normal S2. No S3, no gallop, no rub. Systolic murmur, not heard. Diastolic murmur, not heard. RESPIRATORY: Respiratory effort, unlabored. Normal curvature. No thoracic deformity. No chest wall tenderness. Percussion, resonant. Auscultation, clear. No wheezes, no rales, no rhonchi. ABDOMEN: Soft, nondistended, nontender. No abdominal pain, no vomiting and normal appetite. MUSCULOSKELETAL: No joint tenderness, normal gait, normal tone. SKIN: Warm and dry. OVERALL IMPRESSION: Unstable angina in a patient with a past history of multivessel coronary artery disease, just like that of his previous angina class IV. At this time, we will optimize his medical management with the addition of a beta adrianna and nitrates. If he continues to have chest pain, we will proceed with coronary angiography in the a.m. TRANSINT:[id number] Voice Confirmation ID: [id number] DOCUMENT ID: [id number] HISTORY AND PHYSICAL [id number] CAROL RODRÍGUEZ JEFFREY MD at 1748 CC: [id number] DICTATION DATE: 03/25/19 1444 [employer]LE[employer] OR [employer]IV[employer]ITY FACULTY MEMBER: 03/25/19 1642 ADM IN [place] [address] [place] [address]
[2019-03-26 18:10] VITALS: BP 103/62
--- NOTE | 2019-03-26 19:01 | NUR ---
PT ESCORTED OUT VIA WHEELCHIAR TO V
--- NOTE | 2019-03-27 08:16 | MORECARE ---
CASE MANAGEMENT DISCHARGE SUMMARY PATIENT: CAROL RODRÍGUEZ UNIT: [id number] ADM DATE: 03/25/19 AGE: 64 : 53 SEX: M ROOM/BED: D.2137 AUTHOR: MIKE,DOC PHYSICIAN: REFERRING PHYSICIAN: AMRITA MIRANDA MD DATE OF SERVICE: 03/27/19 Discharge Plan Patient Name: CAROL RODRÍGUEZ [facility] [facility] 1955 Planned Disposition: Home Anticipated Discharge Date: 03/26/19 Discharge Date: 03/26/2019 Expected LOS: 1 Initial Reviewer: [email or web address] Initial Review Date: 03/27/2019 Generated: 03/27/19 9:15 am Coverage Notice Reviewer: [email or web address] Nishant Ibrahim Notice Issued Date-Time: 03/25/2019 15:00 Notice Type: Medicare Outpatient Observation Notice Notice Delivered To: Patient 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 Original given to patient's and one placed on chart. Patient Name: CAROL RODRÍGUEZ Page [phone] at 0816 All edits/amendments must be made on the electronic document DICTATION DATE: 03/27/19814 EDUCATION SPEC: RUBY 03/27/19814 RPT#: [id number] DC DATE:03/26/19 STATUS: DIS IN [facility] [address] [place] [address] END OF REPORT
[2019-03-29] MEDS ORDERED: FLUTICASONE PRO16 GM (09:23)
== END 2019-03-26 19:06 | disposition home or self-care (01) ==
LOC: OBSVTIME → D.ER 14:18 → D.OPS 14:18 → D.M2 14:42 → D.ER 14:42 → D.M2 14:42 → D.ER 15:45 → OBSVTIME 17:00 → D.M2 03-26 19:06 → D.OPS 03-26 19:06
PROVIDERS: Emergency Medicine; ATTEND Internal Medicine Interventional Cardiology
DX: I25.110 Atherosclerotic heart disease of native coronary artery with unstable angina pectoris (principal); I10 Essential (primary) hypertension; E78.5 Hyperlipidemia, unspecified; Z72.0 Tobacco use
CPT/HCPCS: 93458; C9600

== ENCOUNTER 2019-03-29 09:13 | Emergency (ER) | payer MEDICARE, OTHER ==
[~2019-03-29] VITALS: Ht 172.7 cm; Wt 87.3 kg
[~2019-03-29 09:13] MED LIST changes: +LIPITOR20 MG PO; +RANEXA1000 MG PO
[2019-03-29 09:18] VITALS: Ht 172.7 cm; Wt 87.3 kg
[2019-03-29] MEDS ORDERED: FLUTICASONE PRO16 GM NASAL (09:23)
[2019-03-29] MEDS ORDERED: ANORO ELLIPTA1 EACH INH (09:23)
[2019-03-29] MEDS ORDERED: PLAVIX75 MG PO (09:23)
[2019-03-29 09:47] LABS: BASOPHILS 0.2 % (0-2); EOSINOPHILS 0.4 % (0-7); HEMATOCRIT 40.4 % (42.0-54.0); IMMATURE GRANULOCYTES 0.4 % (0-5); LYMPHOCYTES 12.5 % (15-50); MCH 31.9 pg (26.0-34.0); MCHC 34.7 g/dL (31.0-37.0); MEAN PLATELET VOLUME 9.2 fL (7.4-10.4); MONOCYTES 12.9 % (2-11); NEUTROPHILS 73.6 % (40-80); PLATELET COUNT 196 10x3/uL (130-400); RBC 4.39 10x6/uL (4.20-6.10); WBC 4.6 10x3/uL (4.8-10.8)
[2019-03-29 09:54] LABS: CALC OSMOLALITY 274 mosm/kg (275-300); CALCIUM 8.7 mg/dL (8.5-10.1); CARBON DIOXIDE 22.3 mmol/L (21.0-32.0); CHLORIDE - SERUM 104 mmol/L (98-107); CREATININE - SERUM 1.1 mg/dL (0.6-1.3); GLUCOSE 105 mg/dL (74-106); POTASSIUM - SERUM 3.9 mmol/L (3.5-5.1); SODIUM 138 mmol/L (136-145); UREA NITROGEN 10 mg/dL (7-18); eGFR NON AFRICAN AMERICAN 71 mL/min (90-120)
[2019-03-29 09:56] LABS: APTT 30.4 SECONDS (22.8-39.4); INR 1.03 (0.85-1.17)
[2019-03-29 10:15] LABS: ALBUMIN 3.4 g/dL (3.4-5.0); ALKALINE PHOSPHATASE 124 U/L (46-116); ALT (SGPT) 36 U/L (10-68); BILIRUBIN - TOTAL 0.28 mg/dL (0.2-1.3); CKMB 0.3 U/L (0.0-3.6); CREATINE KINASE 126 UL (21-232); MAGNESIUM - SERUM 1.9 mg/dL (1.8-2.4); PROTEIN - SERUM 7.4 g/dL (6.4-8.2)
[2019-03-29 10:18] LABS: TROPONIN-I 0.178 ng/mL (0.000-0.060)
[2019-03-29] MEDS ORDERED: LEVAQUIN750 MG PO ×2 (10:21→10:31)
[2019-03-29] MEDS ORDERED: HYDROCODON-ACE1 EAC7 PO (10:30)
[2019-03-29 11:11] VITALS: BP 110/75
[2019-04-02] MEDS ORDERED: LEVAQUIN750 MG PO (17:26)
[2019-04-02] MEDS ORDERED: MUCINEX600 MG PO (17:28)
[2019-04-02] MEDS ORDERED: TESSALON PERLE100 MG PO (17:29)
== END 2019-03-29 11:00 | disposition home or self-care (01) ==
LOC: D.ER 09:13
PROVIDERS: Emergency Medicine
DX: I25.10 Atherosclerotic heart disease of native coronary artery without angina pectoris (principal); R06.00 Dyspnea, unspecified; J18.1 Lobar pneumonia, unspecified organism; Z95.5 Presence of coronary angioplasty implant and graft; J44.9 Chronic obstructive pulmonary disease, unspecified; K21.9 Gastro-esophageal reflux disease without esophagitis

== ENCOUNTER 2019-09-22 04:06 | Inpatient (IN) | payer MEDICARE, OTHER ==
[~2019-09-22] VITALS: Ht 172.7 cm; Wt 86.4 kg
[~2019-09-22 04:06] MED LIST changes: +ANORO ELLIPTA1 EACH INH; +FLUTICASONE PRO16 GM NASAL; +HYDROCODON-ACE1 EAC7 PO; +LEVAQUIN750 MG PO; +MUCINEX600 MG PO; +TESSALON PERLE100 MG PO
[2019-09-22] MEDS ORDERED: PLAVIX75 MG PO (04:31)
[2019-09-22] MEDS ORDERED: LIPITOR20 MG PO (04:31)
[2019-09-22] MEDS ORDERED: RANEXA1000 MG PO (04:32)
[2019-09-22 05:08] LABS: BASOPHILS 0.5 % (0-2); EOSINOPHILS 0 % (0-7); HEMATOCRIT 39.4 % (42.0-54.0); HEMOGLOBIN 13.4 g/dL (13.5-17.5); IMMATURE GRANULOCYTES 1.5 % (0-5); LYMPHOCYTES 23.1 % (15-50); MCH 32.1 pg (26.0-34.0); MCV 94.5 fL (80.0-100.0); MEAN PLATELET VOLUME 9.5 fL (7.4-10.4); MONOCYTES 20.5 % (2-11); NEUTROPHILS 54.4 % (40-80); PLATELET COUNT 126 10x3/uL (130-400); RBC 4.17 10x6/uL (4.20-6.10); RDW 13.1 % (11.5-14.5)
[2019-09-22 05:13] LABS: CALC OSMOLALITY 276 mosm/kg (275-300); CARBON DIOXIDE 26.1 mmol/L (21.0-32.0); CHLORIDE - SERUM 104 mmol/L (98-107); CREATININE - SERUM 1.3 mg/dL (0.6-1.3); GLUCOSE 108 mg/dL (74-106); POTASSIUM - SERUM 3.7 mmol/L (3.5-5.1); PROTIME 13.2 SECONDS (11.6-15.0); SODIUM 137 mmol/L (136-145); UREA NITROGEN 19 mg/dL (7-18); eGFR NON AFRICAN AMERICAN 59 mL/min (90-120)
[2019-09-22 05:28] LABS: ALBUMIN 3.3 g/dL (3.4-5.0); ALKALINE PHOSPHATASE 120 U/L (30-120); ALT (SGPT) 50 U/L (10-68); BILIRUBIN - TOTAL 0.43 mg/dL (0.2-1.3); C-REACTIVE PROTEIN 3.3 mg/dL (0.0-0.9); PRO BNP 61 pg/mL (0-125); PROTEIN - SERUM 6.6 g/dL (6.4-8.2); THYROID STIMULATING HORMONE 1.07 uIU/mL (0.36-3.74)
[2019-09-22 05:30] LABS: TROPONIN-I < 0.017 ng/mL (0.000-0.060)
--- NOTE | 2019-09-22 06:47 | NUR ---
PT'S TEMP RECHECKED 98.1
[2019-09-22 07:22] LABS: BILIRUBIN NEGATIVE (NEGATIVE); GLUCOSE NEGATIVE (NEGATIVE); KETONE NEGATIVE (NEGATIVE); NITRITE NEGATIVE (NEGATIVE); SPECIFIC GRAVITY 1.025 (1.005-1.020); UROBILINOGEN NORMAL (NORMAL)
--- NOTE | 2019-09-22 07:36 | NUR ---
PT GIVEN ICE WATER, DENIES ANY FURTHER NEEDS AT THIS TIME. CALL LIGHT WITHIN REACH, WILL CONTINUE TO MONITOR.
[2019-09-22 09:50] VITALS: BP 116/75
--- NOTE | 2019-09-22 10:26 | NUR ---
COVID SWAB OBTAINED AND SENT TO LAB
--- NOTE | 2019-09-22 11:47 | NUR ---
PT TO ROOM FROM ER. AMBULATORY, WATCHING TV. NO COMPLAINTS AT PRESENT.
[2019-09-22] MEDS ORDERED: BAYER CHEWABLE81 MG PO (11:48)
[2019-09-22 11:51] VITALS: BP 107/63
[2019-09-22 15:30] VITALS: BP 131/79
[2019-09-22 17:26] VITALS: BP 107/63; BMI 27.4
--- NOTE | 2019-09-22 19:30 | NUR ---
PT IN BED, AAO X 3, RESP EVEN AND UNLABORED. NO DISTRESS NOTED,CL IN REACH, SR UP X 2.
[2019-09-22 20:48] VITALS: BP 124/72
[2019-09-23] VITALS (7 sets, daily range): BP systolic 104–116; BP diastolic 66–72; Ht 172.7 cm; Wt 86.4 kg
--- NOTE | 2019-09-23 04:26 | NUR ---
I have reviewed this patient and I concur with the Shift Assessment completed by the Licensed Practical Nurse today this shift.
[2019-09-23 07:03] LABS: HEMATOCRIT 39.9 % (42.0-54.0); HEMOGLOBIN 13.5 g/dL (13.5-17.5); MCH 31.7 pg (26.0-34.0); MCHC 33.8 g/dL (31.0-37.0); MCV 93.7 fL (80.0-100.0); MEAN PLATELET VOLUME 9.6 fL (7.4-10.4); RBC 4.26 10x6/uL (4.20-6.10); WBC 2.5 10x3/uL (4.8-10.8)
[2019-09-23 07:06] LABS: PLATELET COUNT 96 10x3/uL (130-400)
[2019-09-23 07:37] LABS: ALBUMIN 3.1 g/dL (3.4-5.0); ANION GAP 10.9 mmol/L (8-16); BILIRUBIN - TOTAL 0.48 mg/dL (0.2-1.3); CARBON DIOXIDE 24.7 mmol/L (21.0-32.0); CREATININE - SERUM 1.1 mg/dL (0.6-1.3); LYMPHOCYTES 19 % (15-50); MONOCYTES 2 % (2-11); NEUTROPHILS 75 % (40-80); POTASSIUM - SERUM 3.6 mmol/L (3.5-5.1); PROTEIN - SERUM 6.5 g/dL (6.4-8.2)
[2019-09-23 07:38] LABS: PLATELET ESTIMATE DECREASED
--- NOTE | 2019-09-23 09:40 | EC ---
PATIENT:CAROL RODRÍGUEZ DATE OF SERVICE: 09/22/19 SEX: M MEDICAL RECORD: [id number] DATE OF : 51 LOCATION:D.M2 D.213 AGE OF PATIENT: 64 ADMISSION DATE: 09/22/19 REFERRING PHYSICIAN: INTERPRETING PHYSICIAN: OTIS CASEY MD ECHOCARDIOGRAM REPORT ECHO CHARGES 4 ECHO COMPLETE Date: 09/22/19 CLINICAL DIAGNOSIS: CP ECHOCARDIOGRAPHIC MEASUREMENTS (adult normal given) AC root (d.<3.7cm) 2.4 cm LV Septum d (<1.2 cm> 0.7 cm Valve Excursion 1.0 cm LV Septum (systole) 1.2 cm Left Atria (s.<4.0cm> 3.6 cm LVPW d(<1.2cm) 0.8 cm RV (d.<2.3cm) 2.7 cm LVPW (sytole) 1.0 cm LV diastole(<5.6CM) 4.5 cm MV E-F(>70mm/sec) cm LV systole 2.8 cm LVOT Diameter 1.8 cm MV exc.(>10mm) cm Est.ejection fraction (50-75%) % DOPPLER: LVIT cm/sec A 67 cm/sec E 74 cm/sec LA cm/sec RVSP 24.9 mmHg LVOT 108 cm/sec AOP1/2T m/s Asc. Ao 122 cm/sec RVOT 54 cm/sec RA cm/sec PA 82 cm/sec AV Gradient Peak 6.0 mmHg AV Mean 2.8 mmHg AV Area 2.3 cm MV Gradient Peak 3.4 mmHg MV Mean 1.5 mmHg MV Area cm COMMENTS: Veneer Clipper Helper: Jayde [facility] Ladderman: 4 Dr. Casey TAPE# PACS Pericardial Effusion N DATE OF SERVICE: PROCEDURE: Transthoracic echocardiogram. FINDINGS: 1. The left ventricle is normal in size, shape, structure, and function. Ejection fraction 55% without wall motion abnormalities. 2. Right ventricle is normal in size, shape, structure, and function. 3. Left atrium is normal size, shape, structure, and function. 4. Right atrium is mildly enlarged, but normal function. ECHOCARDIOGRAM REPORT [id number] CAROL RODRÍGUEZ 5. The aortic valve is normal, tricuspid structure and function. 6. Mitral valve is normal. 7. Tricuspid valve has mild tricuspid regurgitation. RVSP is normal. 8. Pulmonic valve is normal. 9. Pericardium is normal. There is no evidence of pericardial effusion. TRANSINT:[id number] Voice Confirmation ID: [id number] DOCUMENT ID: [id number] OTIS CASEY MD at 0940 CC: [id number] DICTATION DATE: 09/22/191751 ROTARY SOIL STABILIZER: 09/23/19 0654 ADM IN [place] [id number] [place] [id number]
--- NOTE | 2019-09-23 09:52 | NUR ---
PT ALERT AND ORIENTED X4 UPON ENTERING. ADMINISTERED MEDICATION, NO DIFFICULTIES. ASSESSMENT PERFORMED AT THIS TIME PT DID NOT GET A BREAKFAST TRAY, HAS A DIET ORDER IN AND IS NOT ON NPO AT THIS TIME. CALLED KITCHEN WITH NO ANSWER, WILL TRY AGAIN. WILL PROVIDE PT WITH FOOD IN THE MEAN TIME. DENIES ANY OTHER NEEDS AT THIS TIME. WILL CONTINUE TO MONITOR.
--- NOTE | 2019-09-23 11:37 | NUR ---
I have reviewed this patient and I concur with the Shift Assessment completed by the Licensed Practical Nurse today this shift.
--- NOTE | 2019-09-23 11:42 | NUR ---
I have reviewed this patient and I concur with the Shift Assessment completed by the Licensed Practical Nurse today this shift.
--- NOTE | 2019-09-23 17:17 | NUR ---
HUNG IV ABX. PT UPRIGHT IN BED EATING DINNER. DENIES ANY NEEDS. WILL CONTINUE TO MONITOR.
--- NOTE | 2019-09-23 21:30 | NUR ---
PLACED PT ON TELEMETRY. PT RUNNING 58SB NO S/S OF DISTRESS. RR EVEN AND UNLABORED. A/OX4 BED LOW CALL LIGHT WITHIN REACH. WILL CONTINUE TO MONITOR.
[2019-09-23 23:59] LABS: UDS - AMPHET NEGATIVE QUAL (NEGATIVE); UDS - BARB NEGATIVE QUAL (NEGATIVE); UDS - BENZO NEGATIVE QUAL (NEGATIVE); UDS - COCAINE NEGATIVE QUAL (NEGATIVE); UDS - OPIATE NEGATIVE QUAL (NEGATIVE); UDS - PCP NEGATIVE QUAL (NEGATIVE); UDS - THC NEGATIVE QUAL (NEGATIVE)
[2019-09-24] VITALS: BP 106/72
[2019-09-24 04:00] VITALS: BP 90/54
[2019-09-24 06:16] LABS: HEMATOCRIT 41.7 % (42.0-54.0); HEMOGLOBIN 14.3 g/dL (13.5-17.5); MCH 32.2 pg (26.0-34.0); MCHC 34.3 g/dL (31.0-37.0); MCV 93.9 fL (80.0-100.0); MEAN PLATELET VOLUME 10.3 fL (7.4-10.4); PLATELET COUNT 102 10x3/uL (130-400); RBC 4.44 10x6/uL (4.20-6.10); RDW 13.1 % (11.5-14.5)
[2019-09-24 06:20] LABS: WBC 3.5 10x3/uL (4.8-10.8)
[2019-09-24 06:32] LABS: ALBUMIN 3.2 g/dL (3.4-5.0); ALKALINE PHOSPHATASE 137 U/L (30-120); CALC OSMOLALITY 271 mosm/kg (275-300); CALCIUM 8.1 mg/dL (8.5-10.1); CARBON DIOXIDE 27.6 mmol/L (21.0-32.0); CHLORIDE - SERUM 102 mmol/L (98-107); GLUCOSE 115 mg/dL (74-106); POTASSIUM - SERUM 3.8 mmol/L (3.5-5.1); PROTEIN - SERUM 6.3 g/dL (6.4-8.2); SODIUM 135 mmol/L (136-145); UREA NITROGEN 16 mg/dL (7-18); eGFR NON AFRICAN AMERICAN 79 mL/min (90-120)
[2019-09-24 06:33] LABS: ALT (SGPT) 126 U/L (10-68)
--- NOTE | 2019-09-24 07:44 | NUR ---
REPORT RECIEVED. PT SITTING SEMIFOWLER. RR EVEN AND UNLABORED ON RA. HE HAS A L AC PIV THAT IS SL. BED LOCKED AND IN LOWEST POSITION, CALL LIGHT WITHIN REACH. WILL CTM
[2019-09-24 09:22] VITALS: BP 104/63
[2019-09-24 11:04] LABS: EOSINOPHILS 1 % (0-7); LYMPHOCYTES 38 % (15-50); MONOCYTES 18 % (2-11); NEUTROPHILS 36 % (40-80); PLATELET ESTIMATE DECREASED; ROULEAUX OCC
[2019-09-24 13:56] VITALS: BP 102/71
[2019-09-24 18:54] VITALS: BP 112/82
--- NOTE | 2019-09-24 19:12 | NUR ---
I have reviewed this patient and I concur with the Shift Assessment completed by the Licensed Practical Nurse today this shift.
--- NOTE | 2019-09-24 20:00 | NUR ---
PT IS RESTING IN BED WITH EYES OPEN. ALERT AND ORIENTED X 3. DENIES ANY PAIN OR DISCOMFORT AT THIS TIME. IV ABX INFUSING TO RIGHT HAND. NO REDNESS OR EDEMA NOTED AT THE INSERTION SITE. TELEMETRY UNIT IS ON AND INTACT. SR'S ARE UP X 2 IN BED. CALL LIGHT AND BEDSIDE TABLE ARE WITHIN EASY REACH.
[2019-09-24 21:45] VITALS: BP 109/55
--- NOTE | 2019-09-24 22:25 | NUR ---
PT AMBULATED OUT TO THE NURSES STATION STATING HE WAS HUNGRY. I GAVE HIM A SANDWICH TRAY. HE VOICED THAT WAS JUST WHAT THE DR ORDERED.
[2019-09-25 00:06] VITALS: BP 116/68
--- NOTE | 2019-09-25 01:00 | NUR ---
PT IS RESTING QUIETLY IN BED WITH EYES CLOSED. RESPS ARE EVEN AND UNLABORED. NO ACUTE DISTRESS NOTED.
[2019-09-25 04:11] VITALS: BP 107/63
--- NOTE | 2019-09-25 04:32 | NUR ---
PT IS RESTING IN BED WITH EYES CLOSED. NO DISTRESS NOTED.
[2019-09-25 06:33] LABS: BASOPHILS 1.9 % (0-2); EOSINOPHILS 0.6 % (0-7); HEMATOCRIT 38.3 % (42.0-54.0); HEMOGLOBIN 12.8 g/dL (13.5-17.5); IMMATURE GRANULOCYTES 0.6 % (0-5); LYMPHOCYTES 47.7 % (15-50); MCH 31.5 pg (26.0-34.0); MCHC 33.4 g/dL (31.0-37.0); MCV 94.3 fL (80.0-100.0); MEAN PLATELET VOLUME 10.5 fL (7.4-10.4); MONOCYTES 16.5 % (2-11); NEUTROPHILS 32.7 % (40-80); PLATELET COUNT 118 10x3/uL (130-400); RBC 4.06 10x6/uL (4.20-6.10); RDW 13.1 % (11.5-14.5)
[2019-09-25 06:43] LABS: WBC 4.8 10x3/uL (4.8-10.8)
[2019-09-25 06:57] LABS: ALBUMIN 2.9 g/dL (3.4-5.0); ANION GAP 9.8 mmol/L (8-16); BILIRUBIN - TOTAL 0.31 mg/dL (0.2-1.3); CALCIUM 8.4 mg/dL (8.5-10.1); CARBON DIOXIDE 27.3 mmol/L (21.0-32.0); CREATININE - SERUM 1.1 mg/dL (0.6-1.3); POTASSIUM - SERUM 4.1 mmol/L (3.5-5.1); PROTEIN - SERUM 6.3 g/dL (6.4-8.2)
--- NOTE | 2019-09-25 07:44 | NUR ---
REPORT RECIEVED. PT SITTING UP IN BED. RR EVEN AND UNLABORED ON RA. HE HAS A R HAND PIV THAT IS SL. BED LOCKED AND IN LOWEST POSITION, CALL LIGHT WITHIN REACH. WILL CTM
[2019-09-25 08:00] VITALS: BP 112/64
[2019-09-25 12:00] VITALS: BP 116/72
--- NOTE | 2019-09-25 12:12 | NUR ---
I have reviewed this patient and I concur with the Shift Assessment completed by the Licensed Practical Nurse today this shift.
[2019-09-25] MEDS ORDERED: KEFLEX500 MG PO (13:40)
--- NOTE | 2019-09-25 14:43 | NUR ---
DC PAPERWORK GONE OVER AND SIGNED WITH PT, ALL QUESTIONS ANSWERED. PIV REMOVED, CATH TIP FULLY INTACT. ALL VALUBLES REMOVED FROM ROOM, PT WHEELED DOWNSTAIRS TO MEET FAMILY.
[2019-09-25 17:08] LABS: SPE - A/G RATIO 1.1 (0.7-1.7); SPE - ALBUMIN 3.1 g/dL (2.9-4.4); SPE - ALPHA-1 GLOBULIN 0.2 g/dL (0.0-0.4); SPE - ALPHA-2 GLOBULIN 0.9 g/dL (0.4-1.0); SPE - BETA GLOBULIN 0.8 g/dL (0.7-1.3); SPE - GAMMA GLOBULIN 0.9 g/dL (0.4-1.8); SPE - M-SPIKE Not Observed g/dL (Not Observed); SPE - TOTAL PROTEIN 5.9 g/dL (6.0-8.5)
== END 2019-09-25 14:44 | disposition home or self-care (01) | DRG 445 ==
LOC: D.ER 04:06 → D.M2 06:58
PROVIDERS: Family Medicine; Internal Medicine Hematology & Oncology; ADMIT Family Medicine; ATTEND Family Medicine
DX: K81.0 Acute cholecystitis (principal); R78.81 Bacteremia; D61.818 Other pancytopenia; I71.4 Abdominal aortic aneurysm, without rupture; I25.10 Atherosclerotic heart disease of native coronary artery without angina pectoris; J44.9 Chronic obstructive pulmonary disease, unspecified

== ENCOUNTER 2020-01-16 22:42 | Observation (INO) | payer MEDICARE, OTHER ==
[~2020-01-16] VITALS: Ht 172.7 cm; Wt 86.4 kg
--- NOTE | ~2020-01-16 | HEMODYNAMI ---
PATIENT:CAROL RODRÍGUEZ MEDICAL RECORD: [id number] : 51 LOCATION:[facility] DRamonE06- [facility]# [id number] ADMISSION DATE: 01/16/20 Generatedon:01/17/202015:08 Patient name: CAROL RODRÍGUEZ Patient #: [id number] SSN: [id number] : 1955 Date of study: 01/17/2020 Page: Of Hemodynamic Procedure Report Patient Data Patient Demographics Procedure consent was obtained First Name: CAROL Gender: Male Last Name: ANNE : 1955 Middle Initial: JEAN-PAUL Age: 64 year(s) Patient #: [id number] Race: SSN: [id number] Additional ID: [id number] Contact details [address]: [address] [place] [address] State: [place] City: [place] Zip code: [address] Past Medical History Allergies Allergen Reaction Date Comments Reported Penicillins 12/25/2014 Penicillins 11/13/2017 Other allergy 06/26/2018 PCN Other allergy 03/26/2019 PCN Other allergy 01/17/2020 ETHEL PENDLETON Admission Admission Data Admission Date: 01/16/2020 Admission Time: 23:48 Arrival Date: 01/17/2020 Arrival Time: 0:00 Admit Source: Other Insurance Payor: Medicare Room #: D.E06 [facility] #: [id number] Height (in.): 172.72 BSA: 3.93 (m2) Height (cm.): 438.71 BMI: 4.49 (kg/m2) Weight (lbs.): 190.39 Weight (kg.): 86.36 Lab Results Lab Result Date: 01/17/2020 Lab Result Time: 0:00 Biochemistry Name Units Result Min Max BUN mg/dl 18 --(---*)-- 7 18 Creatinine mg/dl 1.1 --(--*-)-- 0.6 1.3 eGFR ml/min 70.82327 *-(----)-- 90 120 NONAFRICAN Troponin l ng/ml 0.017 --(-*--)-- 0 0.06 CBC Name Units Result Min Max Hematocrit % 35.6 *-(----)-- 42 54 Hemoglobin g/dl 12.1 *-(----)-- 13.5 17.5 Procedure Procedure Types Cath Procedure Diagnostic Procedure C [facility] w/Coronaries Procedure Description Procedure Date Procedure Date: 01/17/2020 Procedure Start Time: 14:56 Procedure End Time: 15:05 Procedure Staff Name Function Shahbaz Payne MD Performing Physician Savana Cobb RT Monitor Helen Ramírez RT Scrub Nati Tovar RN Nurse Procedure Data Cath Procedure Fluoroscopy Diagnostic fluoroscopy Total fluoroscopy Time: 2.3 time: 2.3 min min Diagnostic fluoroscopy Total fluoroscopy dose: 400 dose: 400 mGy mGy Contrast Material Contrast Material Type Amount (ml) Isovue 370 55 Entry Location Entry Primary Successful Side Size Upsize Upsize Entry Closure Morgan ccessful Closure Location (Fr) 1 (Fr) 2 (Fr) Remarks Device Remarks Radial Right 6 Fr Mechanical artery Short Compression Estimated blood loss: 5 ml Diagnostic catheters Device Type Used For End Catheter Placement DIAGNOSTIC [place] 110cm 5 Procedure Fr catheter (735608) Procedure Complications No complications Procedure Medications Medication Administration Route Dosage Oxygen etCO2 Nasal cannula 2 l/min Lidocaine 2% added to field 20 Heparin Flush Bag added to field 2 bags (1000units/500ml NS) 0.9% NaCl I.V. 100 ml/hr Benadryl I.V. 50 mg Versed I.V. 2 mg Fentanyl I.V. 50 mcg Versed I.V. 1 mg Fentanyl I.V. 50 mcg Radial Cocktail I.A. 1 syringe (Verapamil 2mg/Nitro 400mcg/Heparin 1500units) Hemodynamics Rest BSA: 3.93 (m2) HGB: 12.1 (g/dl) O2 Consumption: Estimated: 448.77 (ml/min) O2 Co nsumption indexed: Estimated:114.19 (ml/min/m) Heart Rate: 64 (bpm) Pressure Samples Time Site Value (mmHg) Purpose Heart Use Rate(bpm) 14:58 LV 74/29,4 Snapshot 88 14:59 AO 77/54(65) Pullback 72 14:59 LV 77/0,5 Pullback 72 Gradients Valve Time Site 1 Site 2 Mean SEP/DFP Peak To Heart Use (mmHg) (sec/min) Peak Rate (mmHg) (bpm) Aortic 14:59 LV AO 4 14 0 72 77/0,5 77/54(65) Calculations Valve P-P Mean Valve Index Valve Source Name Gradient Area Flow (cm2) Aortic 0 4 0 4 Snapshots Pre Cath Intra NCS Post Cath Vital Signs Time Heart Resp SPO2 etCO2 NIBP (mmHg) Rhythm Pain Sedation Rate (ipm) (%) (mmHg) Status Level (bpm) 14:44:17 67 18 95 0 136/85(122) NSR 0 (11) 10(A) , No pain 14:48:29 64 13 94 27.7 117/75(107) NSR 0 (11) 10(A) , No pain 14:52:44 62 15 94 35.2 117/69(101) NSR 0 (11) 10(A) , No pain 14:56:55 64 13 96 26.2 106/76(90) NSR 0 (11) 9(A) , No pain 15:01:02 76 14 94 3.7 96/64(79) NSR 0 (11) 9(A) , No pain 15:05:10 72 10 93 28.4 102/69(84) NSR 0 (11) 10(A) , No pain Medications Time Medication Route Dose Verified Delivered Reason Notes Effectiveness by by 14:40:10 Benadryl I.V. 50 mg Shahbaz Damian used for [facility] gradall operator 14:43:17 Oxygen etCO2 2 l/min Shahbaz Damian used for Nasal [facility] gradall operator cannula 14:43:25 Lidocaine 2% added 20ml Shahbaz Hartmann for local to vial [facility] anesthetic field MD MARTINEZ 14:43:33 Heparin Flush added 2 bags Shahbaz Hartmann used for Bag to [facility] procedure (1000units/500ml field MD MARTINEZ NS) 14:43:42 0.9% NaCl I.V. 100 Shahbaz Damian Per ml/hr [facility] RN physician 14:54:16 Versed I.V. 2 mg Shahbaz Damian for sedation [facility] RN, MD 14:54:29 Fentanyl I.V. 50 mcg Shahbaz Damian for sedation [facility] RN, MD 14:58:35 Versed I.V. 1 mg Shahbaz Damian for sedation [facility] RN, MD 14:58:38 Fentanyl I.V. 50 mcg Shhabaz Damian for sedation [facility] RN, MD 14:59:47 Radial Cocktail I.A. 1 Shahbaz Hartmann for (Verapamil syringe [facility] vasodilation 2mg/Nitro MD MARTINEZ 400mcg/Heparin 1500units) Procedure Log Time Note 14:17:25 Informed consent obtained and on chart 14:17:33 Diagnostic Cath Status : Urgent 14:19:13 Lab Result : BUN 18 mg/dl 14:19:13 Lab Result : Hemoglobin 12.1 g/dl 14:19:13 Lab Result : eGFR NONAFRICAN 70.40056 ml/min 14:19:13 Lab Result : Creatinine 1.1 mg/dl 14:19:13 Lab Result : Troponin l 0.017 ng/ml 14:19:13 Lab Result : Hematocrit 35.6 % 14:19:17 Arrival Date: 01/17/2020 12:00:00 AM 14:19:18 Admit Source: Other 14:19:23 Patient Height : 172.72 inches 14:19:28 Patient Weight : 190.39 lbs 14:19:37 Insurance Payor : Medicare 14:21:23 Helen Ramírez RT(R) sent for patient. Start room use. 14:21:32 Procedure Status Urgent Heart Cath (IP). 14:21:34 Time tracking: Regular hours (M-F 7:00 - 5:00) 14:21:39 Plan of Care:Hemodynamics will remain stable., Cardiac rhythm will remain stable., Comfort level will be maintained., Respiratory function will remain adequate., Patient/ family verbilizes understanding of procedure., Procedure tolerated without complication., Recovers from procedure without complications.. 14:21:49 H&P Date Dictated: 01/16/2020 Within 30 days and on chart.. 14:21:50 Pre-procedure instructions explained to patient. 14:21:51 Pre-op teaching completed and patient verbalized understanding. 14:21:53 Family unavailable. 14:21:54 Patient NPO since Midnight. 14:22:16 Patient allergic to Other allergyPCN, PEPPERS 14:22:23 Lab results completed and on chart. 14:22:26 Stress Test: no; N/A ? 14:22:28 Alarms reviewed by Betsey Alberto 14::29 Sharps counted by scrub and verified by R.N. 14:: Patient received from ED to CCL 1 Alert and oriented. Tansferred to table in Supine position. 14:29:23 Warm blankets applied, and noemi hugger turned on for patient comfort. 14:29:24 Correct patient and procedure confirmed by team. 14:29:24 ECG and BP/O2 sat monitors applied to patient. 14:40:10 Benadryl 50 mg I.V. was administered by Nati Tovar RN; used for procedure; Verbal order read back and verified. 14:43:07 Vital chart was started 14:43:11 Full Disclosure recording started 14:43:13 Baseline sample Acquired. 14:43:17 Oxygen 2 l/min etCO2 Nasal cannula was administered by Nati Tovar RN; used for procedure; Verbal order read back and verified. 14:43:17 Is the patient allergic to Iodine/contrast media? No. 14:43:25 Lidocaine 2% 20ml vial added to field was administered by Shahbaz Payne MD; for local anesthetic; Verbal order read back and verified. 14:43:28 Was the patient premedicated? No 14:43:31 Is patient on blood thinner?Yes 14:43:33 Heparin Flush Bag (1000units/500ml NS) 2 bags added to field was administered by Shahbaz Payne MD; used for procedure; Verbal order read back and verified. 14:43:39 ACC The patient was administered the following blood thiners within the last 24 hours: ACCPlavix 14:43:42 0.9% NaCl 100 ml/hr I.V. was administered by Nati Tovar RN; Per physician; Verbal order read back and verified. 14:43:49 Patient diabetic? No. 14:43:51 If diabetic: On Metformin? N/A 14:43:52 ----Pre-sedation anethsthesia assessment.---- 14:43:54 Previous problem with sedation/anesthesia? No ? 14:43:55 Snore? Yes 14:43:56 Sleep apnea? Yes 14:43:58 Deviated septum? No 14:43:58 Opens mouth fully? Yes 14:43:59 Sticks out tongue? Yes 14:44:02 Airway obstruction? Yes COPD 14:44:06 Dentures? No ? 14:44:12 Pre procedure: right dorsailis pedis pulse 2+ Normal; easily identifiable; not easily obliterated 14:44:15 Modified Kolton's test Ulnar < 7 seconds 14:44:17 Patient pain scale 0/10 ?. 14:44:24 IV patent on arrival in left forearm with 0.9% NaCl at O. 14:44:28 Right Radial & Right Groin area was prepped with chlora-prep and draped in sterile fashion 14:44:35 Rhythm: sinus rhythm 14:44:39 Use device set Radial Dx or PCI 14:44:41 ACIST Syringe (79093) opened to sterile field. 14:44:41 Medline Cath Pack ([id number]) opened to sterile field. 14:44:42 Bag Decanter (2002S) opened to sterile field. 14:44:43 ACIST Hand Control (17767) opened to sterile field. 14:44:43 ACIST Manifold (22263) opened to sterile field. 14:44:45 MBrace Wrist Support (988122990) opened to sterile field. 14:44:46 EMERALD Guide Wire (026-142) opened to sterile field. 14:44:46 SHEATH 6FR RAIN (5991758) opened to sterile field. 14:53:58 --------ALL STOP TIME OUT------ 14:53:59 Final Timeout: patient, procedure, and site verified with staff and physician. All members of the team are in agreement. 14:54:01 Right Radial & Right Groin site verified by team. 14:54:05 Fire Safety Assessment: A--An alcohol-based skin anteseptic being used preoperatively., C--Open oxygen or nitrous oxide is being used., D--An ESU, laser, or fiber-optic light is being used. 14:54:09 Physical assessment completed. ASA score P 2 - A patient with mild systemic disease as per Shahbaz Payne MD. 14:54:12 2) 60-89 Mildly reduced kidney function, and other findings (as for stage 1) point to kidney disease. 14:54:16 Versed 2 mg I.V. was administered by Nati Tovar RN; for sedation; Verbal order read back and verified. 14:54:16 Maximum allowable contrast dose (3.7 X eGFR X 0.75)197 ml. 14:54:20 Sedation plan: IV Moderate Sedation Medication:Versed, Fentanyl 14:54:29 Fentanyl 50 mcg I.V. was administered by Nati Tovar RN; for sedation; Verbal order read back and verified. 14:56:32 Procedure started. 14:56:37 Local anesthetic to right radial artery with Lidocaine 2% by Shahbaz Payne MD.INITIAL ACCESS ONLY 14:57:59 A DIAGNOSTIC [place] 110cm 5 Fr catheter (576392) was advanced over the wire and used for Procedure. 14:58:15 A 6 Fr Short sheath was inserted into the Right Radial artery 14:58:22 LV gram done using ASHLEY 14:58:35 Versed 1 mg I.V. was administered by Nati Tovar RN; for sedation; Verbal order read back and verified. 14:58:37 LV hemodynamics recorded. 14:58:38 Fentanyl 50 mcg I.V. was administered by Nati Tovar RN; for sedation; Verbal order read back and verified. 14:58:40 Injector settings: Ml/sec: 5, Volume: 15, 14:58:47 EF : 55 % 14:58:56 LCA angiography performed. 14:58:59 Injector settings: Ml/sec: 3, Volume: 6, 14:59:33 IV Extension Set opened to sterile field. 14:59:47 Radial Cocktail (Verapamil 2mg/Nitro 400mcg/Heparin 1500units) 1 syringe I.A. was administered by Shahbaz Payne MD; for vasodilation; Verbal order read back and verified. 15:00:12 RCA angiography performed. 15:00:15 Injector settings: Ml/sec: 3, Volume: 6, 15:00:55 Catheter exchanged over wire. 15:01:19 GUIDE 5FR EBU 3.5 catheter ([id number]) opened to sterile field. 15:02:10 LCA angiography performed. 15:02:33 Injector settings: Ml/sec: 3, Volume: 6, 15:02:36 ACCDominant side:Left 15:03:15 Catheter removed. 15:03:24 ZEPHYR REGULAR TR BAND (765059) opened to sterile field. 15:03:42 Sheath removed intact; hemostasis achieved with Mechanical Compression to the Right Radial artery. 15:03:45 Procedure ended.(Physican Out) 15:03:56 Fluoroscopy time 02.30 minutes. 15:04:01 Flurop Dose total: 400 15:04:01 Fluoroscopy dose: 400 mGy 15:04:16 Dose Area Product 74826 mGy/cm. 15:04:26 Contrast amount:Isovue 370 55ml. 15:04:29 Maximum allowable dose exceeded? No. 15:04:30 Sharps counted by scrub and verified by R.N. 15:04:32 Marion band inflated with 10cc of air. 15:04:34 Post Procedure Pulses reassessed and unchanged 15:04:37 Post procedure: right dorsailis pedis pulse 2+ Normal; easily identifiable; not easily obliterated. 15:04:40 Post-procedure physical assessment completed. ASA score P 2 - A patient with mild systemic disease as per Shahbaz Payne MD. 15:04:44 Post procedure rhythm: unchanged. 15:04:47 Estimated blood loss: 5 ml 15:04:49 Post procedure instruction explained to patient.Patient verbalizes understanding. 15:04:49 Patient needs reinforcement of post procedure teaching. 15:05:33 Procedure and supply charges have been captured, reviewed, submitted and are correct. 15:05:36 Procedure Complication : No complications 15:05:40 [facility] Findings: mild to moderate CAD (<70%) 15:05:42 Operative report dictated upon procedure completion. 15:05:42 See physician's report for complete and final results. 15:05:48 Report given to Pre/Post Procedure Room. 15:05:51 Patient transfered to Pre/Post Procedure Room with Stretcher. 15:05:54 Procedure ended. 15:05:54 Full Disclosure recording stopped 15:06:03 ACC-PCI Only Patient was given prescriptions, or instructed by Shahbaz Payne MD to start/continue the following medications upon discharge: Plavix 15:06:06 End room use (Document Last) 15:06:28 End room use (Document Last) 15:06:45 End room use (Document Last) 15:08:16 Vital chart was stopped Device Usage Item Name Manufacture Quantity Catalog Hospital Part Current Minima l Lot# / Number Charge Number Stock Stock Serial# Code ACIST Acist 1 64032 525688 042748 310762 20 Seadev-FermenSys56210) Systems Inc Medline Medline 1 [id number] 721218 85557 686216 5 Cath Pack ([id number]) Bag Microtek 1 2001S 257450 03248 447827 5 Decanter Medical Inc. () ACIST Hand Acist 1 82757 146164 873222 334558 5 Control Medical (52434) Systems Inc ACIST Acist 1 30642 665064 811121 403939 5 Manifold Medical (83496) Systems Inc MBrace Advanced 1 140-0250-00 907433 49646 543716 5 Wrist Vascular Support Dynamics ([id number]) EMERALD Cardinal 1 502-880 529669 842805 843244 5 Guide Wire Health (702-999) SHEATH 6FR Cardinal 1 8967181 346819 7351279 734095 5 [facility] Health (9899533) DIAGNOSTIC Terumo 1 40-1872 838996 591531 820555 5 [place] 110cm 5 Fr catheter (169144) IV Hospira 1 40375-00 830760 11084 561915 5 Extension Set GUIDE 5FR Medtronic 1 [id number] 716387 712793 838621 1 EBU 3.5 catheter (ON0VNR27) ZEPHYR Cardinal 1 739146 325215 6097990 610150 5 REGULAR TR Health BAND (079628) Signature Audit [place] Stage Time Signature Unsigned Intra-Procedure 01/17/2020 Savana Cobb 3:06:28 PM RT(R) Intra-Procedure 01/17/2020 Nati Tovar RN 3:06:45 PM Intra-Procedure 01/17/2020 Shahbaz Jackson 3:08:14 PM Thomas MARTINEZ [facility] [address] [place] [address]
--- NOTE | ~2020-01-16 | EC ---
PATIENT:CAROL RODRÍGUEZ DATE OF SERVICE: 01/16/20 SEX: M MEDICAL RECORD: [id number] DATE OF : 51 LOCATION:[place] [address] AGE OF PATIENT: 64 ADMISSION DATE: 01/16/20 REFERRING PHYSICIAN: INTERPRETING PHYSICIAN: ALIZA LEONE MD ECHOCARDIOGRAM REPORT ECHO CHARGES 4 ECHO COMPLETE Date: 01/17/20 CLINICAL DIAGNOSIS: CHEST PAIN ECHOCARDIOGRAPHIC MEASUREMENTS (adult normal given) AC root (d.<3.7cm) 3.6 cm LV Septum d (<1.2 cm> 1.4 cm Valve Excursion 2.3 cm LV Septum (systole) 1.5 cm Left Atria (s.<4.0cm> 4.6 cm LVPW d(<1.2cm) 1.0 cm RV (d.<2.3cm) 3.6 cm LVPW (sytole) 1.2 cm LV diastole(<5.6CM) 4.1 cm MV E-F(>70mm/sec) cm LV systole 2.8 cm LVOT Diameter 2.0 cm MV exc.(>10mm) cm Est.ejection fraction (50-75%) 50 % DOPPLER: LVIT cm/sec A 81 cm/sec E 80 cm/sec LA cm/sec RVSP 31 mmHg LVOT 120 cm/sec AOP1/2T m/s Asc. Ao 140 cm/sec RVOT 63 cm/sec RA cm/sec PA 59 cm/sec AV Gradient Peak 7 mmHg AV Mean 3 mmHg AV Area 2.7 cm MV Gradient Peak 3 mmHg MV Mean 1 mmHg MV Area cm COMMENTS: Occupational Health Physiotherapist: Melida ROSS Rigging Foreman: 3 Dr. Adrian TAPE# Pericardial Effusion N DATE OF SERVICE: Adequate 2D, color-flow imaging, spectral Doppler, and M-Mode LVH is present. LV internal dimension is normal. Wall motion is normal. EF is greater than or equal to 55%. Aortic valve sclerosis without stenosis by Doppler interrogation. Left atrium dilated at 4.6 cm. Mitral valve shows no prolapse. Trace MR. Right-sided chambers are grossly normal. Trace TR. TRANSINT:[id number] Voice Confirmation ID: [id number] DOCUMENT ID: [id number] ECHOCARDIOGRAM REPORT [id number] CAROL RODRÍGUEZ ALIZA LEONE MD CC: [id number] DICTATION DATE: 01/18/20915 ED TECH: 01/18/20 1525 DIS IN 01/17/20 [facility] [address] [facility]
[~2020-01-16 22:42] MED LIST changes: +BAYER CHEWABLE81 MG PO; +KEFLEX500 MG PO
[2020-01-16 22:44] VITALS: Ht 172.7 cm; Wt 86.4 kg
[2020-01-16 23:29] LABS: HEMATOCRIT 35.6 % (42.0-54.0); HEMOGLOBIN 12.1 g/dL (13.5-17.5); LYMPHOCYTES 22.9 % (15-50); MCH 31.8 pg (26.0-34.0); MCV 93.7 fL (80.0-100.0); MEAN PLATELET VOLUME 8.9 fL (7.4-10.4); NEUTROPHILS 57.9 % (40-80); RDW 12.1 % (11.5-14.5); WBC 5.9 10x3/uL (4.8-10.8)
[2020-01-16 23:32] LABS: PLATELET COUNT 258 10x3/uL (130-400)
[2020-01-16 23:40] LABS: CALC OSMOLALITY 277 mosm/kg (275-300); CALCIUM 8.3 mg/dL (8.5-10.1); CARBON DIOXIDE 25.1 mmol/L (21.0-32.0); CHLORIDE - SERUM 104 mmol/L (98-107); CREATININE - SERUM 1.1 mg/dL (0.6-1.3); GLUCOSE 105 mg/dL (74-106); SODIUM 138 mmol/L (136-145); UREA NITROGEN 18 mg/dL (7-18); eGFR NON AFRICAN AMERICAN 71 mL/min (90-120)
[2020-01-16 23:41] LABS: APTT 34.8 SECONDS (22.8-39.4); INR 0.98 (0.85-1.17)
[2020-01-16 23:53] LABS: ALBUMIN 2.9 g/dL (3.4-5.0); ALKALINE PHOSPHATASE 140 U/L (30-120); ALT (SGPT) 21 U/L (10-68); BILIRUBIN - TOTAL 0.19 mg/dL (0.2-1.3); PRO BNP 52 pg/mL (0-125); TROPONIN-I < 0.017 ng/mL (0.000-0.060)
[2020-01-17 01:00] VITALS: BP 103/68
[2020-01-17 03:00] VITALS: BP 111/66
[2020-01-17 06:49] LABS: % SATURATION 20 % (15-55); IRON 45 ug/dl (35-150); TOTAL IRON BIND CAPACITY 220 ug/dl (260-445); UNSAT IRON BIND CAPACITY 175 ug/dl (150-375)
[2020-01-17 07:13] VITALS: BP 128/75
[2020-01-17 07:13] LABS: FERRITIN 237 ng/mL (3-244); MAGNESIUM - SERUM 2.3 mg/dL (1.8-2.4); TROPONIN-I < 0.017 ng/mL (0.000-0.060)
[2020-01-17 10:26] VITALS: BP 112/71
--- NOTE | 2020-01-17 11:37 | NUR ---
[facility] FOR CONSULT
[2020-01-17 14:45] LABS: CHOL - HDL RATIO 3.4 ratio (2.3-4.9); LDL-HDL RATIO 2.1 ratio (1.5-3.5)
--- NOTE | 2020-01-17 15:15 | NUR ---
PT REC'D TO ROOM 2 VIA STRETCHER FROM FURNACE FEEDER. MONITORS ESTAB. NO FAMILY PRESENT. SEE WELLNESS SPECIALIST, ALARMS ON AND C/L IN REACH.
--- NOTE | 2020-01-17 15:30 | NUR ---
R WRIST SITE C/D/I, PULSES PALP. PT RESTING QUIETLY, VSS. R ARM/HAND WARM. SPOKE WITH ON PHONE, SHE HAS BEEN UPDATED BY DR. LEONE. PLAN FOR D/C THIS AFTERNOON.
--- NOTE | 2020-01-17 15:58 | NUR ---
Dylan CORDERO APN HERE TO SEE PT. NEW ORDERS FOR D/C HOME REC'D.
--- NOTE | 2020-01-17 16:15 | NUR ---
R WRIST SITE C/D/I, NO S/S BLEEDING OR HEMATOMA. PULSES PALP. WILL BEGIN REMOVING AIR FROM Z BAND PER MD ORDERS. ALARMS ON AND C/L IN REACH.
--- NOTE | 2020-01-17 16:30 | NUR ---
5 CC AIR REMOVED FROM Z BAND, NO S/S BLEEDING OR HEMATOMA. PULSES PALP. VSS. PT SITTING UP IN BED, GIVEN SANDWICH AND COLA. C/L IN REACH.
--- NOTE | 2020-01-17 16:45 | NUR ---
TOTAL 7CC AIR REMOVED FROM Z BAND, NO S/S BLEEDING OR HEMATOMA. PULSES PALP. DENIES PAIN OR NEEDS. C/L IN REACH.
--- NOTE | 2020-01-17 16:56 | NUR ---
REPORT GIVEN TO Morena THOMPSON RN.
--- NOTE | 2020-01-17 17:09 | NUR ---
DISCHARGE INSTRUCTIONS REVIEWED W PT, HE VERBALIZED UNDERSTANDING. IV REMOVED W CATH INTACT. MONITORS REMOVED AND PT UP TO DRESS FOR DISCHARGE. ZBAND AND IMMOBILIZER IN PLACE.
--- NOTE | 2020-01-17 17:16 | NUR ---
ZBAND REMOVED, NO BLEEDING OR S/S HEMATOMA NOTED. 2X2 AND SM TEGADERM DRESSING APPLIED. IMMOBILIZER RE POSITIONED. PT DISCHARGED VIA WC TO FAMILY WAITING IN PRIVATE VEHICLE. PT HAD ALL BELONGINGS
--- NOTE | 2020-01-18 08:42 | OP ---
PATIENT NAME: CAROL RODRÍGUEZ MEDICAL RECORD: [id number] :51 LOCATION:[facility] ADMISSION DATE:01/16/20 SURGEON: ALIZA LEONE MD DATE OF OPERATION: 01/17/2020 PROCEDURE: Left heart catheterization, selective coronary angiography, right radial approach. CATHETERS: Radial sheath and [place] catheter. The procedure was well tolerated. The patient returned to the [facility]. Sheath removed. TR band was placed. FINDINGS: Left ventriculography in 30-degree ASHLEY view: Normal wall motion, normal systolic function. CORONARY ANATOMY: LEFT MAIN: Free of disease. LAD: Previous stenting is widely patent with no progression of [place] disease, no evidence of restenosis. CIRCUMFLEX: Large left dominant system, previously placed stent is widely patent, no progression of [place] disease, no evidence of restenosis. RIGHT CORONARY ARTERY: Rudimentary, free of disease. IMPRESSION: Patent stents, normal LV function, no progression of [place] disease. NTS:[id number] Voice Confirmation ID: [id number] DOCUMENT ID: [id number] ALIZA LEONE MD at 0842 CC: [id number] DICTATION DATE: 01/17/20 1512 CHAINSTITCH SEAT JOINER: 01/17/20 1806 DIS IN 01/17/20 [address] [address] [place] [address]
--- NOTE | 2020-01-18 08:42 | CN ---
PATIENT NAME:CAROL RODRÍGUEZ MEDICAL RECORD: [id number] : 51 LOCATION:[facility] ADMIT DATE: 01/16/20 ACCOUNT: [id number] CONSULTING PHYSICIAN: ALIZA LEONE MD REFERRING PHYSICIAN: JENNIFER LOUIE MD DATE OF CONSULTATION: 01/17/2020 HISTORY OF PRESENT ILLNESS: A 64-year-old gentleman with known history of coronary artery disease, status post intervention, last approximately 9 months ago, has history of dyslipidemia, presented to the ER with chest pressure and tightness. This is going on over the past 2-3 days. Prior to this has been doing quite well without dyspnea or shortness of breath. We are asked to see him concerning his cardiovascular status. PAST MEDICAL HISTORY: Includes; 1. History of coronary artery disease. 2. Hypertension. ALLERGIES: PENICILLIN. MEDICATIONS: Chronically include Plavix 75 every day, Ranexa 1 gram b.i.d., atorvastatin 20 every day, aspirin 81 every day. SOCIAL HISTORY: Nonsmoker, nondrinker. Easily takes care of all his ADLs. REVIEW OF SYSTEMS: The patient reports easy bruising but reports no swollen glands. The patient reports no fever, no night sweats, no significant weight gain, no significant weight loss. No significant exercise tolerance. The patient reports no dry eyes, no irritation, no vision change. Patient reports no difficulty hearing and no ear pain. Patient reports no frequent nose bleeds or nose and sinus problems. Patient reports on arm pain on exertion. No shortness of breath while lying down. No history of heart murmur. Patient reports no cough, no wheezing or coughing up blood. Patient reports no abdominal pain, no vomiting. Normal appetite. No diarrhea and not vomiting blood. No nausea and no constipation. Patient reports no incontinence. No difficulty urinating. No hematuria. No increased frequency. Patient reports no muscle aches. No weakness, no arthralgias, no back pain. No swelling of the extremities. Patient reports no abnormal mole, no jaundice, no rashes. Reports no loss of consciousness. No weakness and no numbness. No seizures, dizziness, or headaches. The patient reports no depression, no sleep disturbance, feeling safe in a relationship and no alcohol abuse. Patient reports on fatigue. Reports no runny nose or sinus pressure. No itching, no hives, and no frequent sneezing. PHYSICAL EXAMINATION: GENERAL: Pleasant, no acute distress, appears stated age. VITAL SIGNS: Blood pressure 128/75, pulse 67 and regular. HEENT: Normocephalic, atraumatic. NECK: No JVD or bruit. HEART: Regular, II/ systolic ejection murmur. LUNGS: Good air excursion. ABDOMEN: Soft, nontender. EXTREMITIES: Pulses 2+. There is no edema. IMPRESSION: Acute coronary syndrome with accelerated angina. CONSULT REPORT [id number] CAROL RODRÍGUEZ PLAN: For angiography, intervention based on the above. TRANSINT:[id number] Voice Confirmation ID: [id number] DOCUMENT ID: [id number] ALIZA LEONE MD at 0842 CC: [id number] DICTATION DATE: 01/17/20843 BRAZER CONTROLLED ATMOSPHERIC FURNACE: 01/17/20 1123 DIS IN 01/17/20 [facility] [address] [place] [address]
== END 2020-01-17 17:17 | disposition home or self-care (01) ==
LOC: D.ER 22:42 → D.EDHOLD 23:48 → OBSVTIME 23:48 → D.CLR 01-17 15:39
PROVIDERS: Family Medicine; Internal Medicine Interventional Cardiology; ADMIT Emergency Medicine; ATTEND Emergency Medicine
DX: I25.110 Atherosclerotic heart disease of native coronary artery with unstable angina pectoris (principal); J44.9 Chronic obstructive pulmonary disease, unspecified; R07.9 Chest pain, unspecified; D64.9 Anemia, unspecified; E78.5 Hyperlipidemia, unspecified

== ENCOUNTER → 2020-07-07 08:25 | Outpatient (CLI) | payer MEDICARE, OTHER ==
[2020-01-16 22:44] VITALS: BMI 28.9
== END | disposition home or self-care (01) ==
LOC: D.CT 08:25
PROVIDERS: ATTEND Internal Medicine Pulmonary Disease
DX: J84.9 Interstitial pulmonary disease, unspecified (principal)